=== PATIENT | female | born 1970 | race Caucasian/White ===

== ENCOUNTER 2022-04-17 08:16 | Emergency (ER) | payer MEDICARE, MEDICAID, SELFPAY ==
--- NOTE | 2022-04-17 08:27 | ED.GENADULT ---
HPI - General Adult General Chief complaint: Upper Respiratory Infection Stated complaint: Ear Pain/Sore Throat Source: patient and RN notes reviewed History of Present Illness HPI narrative: 51-year-old female presents to urgent care with daughter at side. Patient states she has been having a runny nose, congestion, headaches, sore throat, bilateral ear pain since Thursday. Patient reports a slight cough. States she had the aches yesterday. Denies any vomiting, diarrhea chest pain, shortness of breath. Patient has been taking Tylenol at home and use peroxide in her ear with moderate relief. Some parts of this dictation were generated by voice recognition software and may contain typographical and/or grammatical inaccuracies. Related Data Home Medications Medication Instructions Recorded Confirmed amlodipine 5 mg tablet mg 04/17/22 buspirone 15 mg tablet mg 04/17/22 cariprazine 1.5 mg capsule mg 04/17/22 (Vraylar) divalproex 125 mg tablet,delayed mg PO 04/17/22 release famotidine 20 mg tablet mg 04/17/22 insulin glargine 100 unit/mL (3 unit subcut 04/17/22 mL) subcutaneous pen (Lantus Solostar U-100 Insulin) insulin lispro 100 unit/mL subcut 04/17/22 subcutaneous pen (Admelog SoloStar U-100 Insulin lispro) liraglutide 0.6 mg/0.1 mL (18 mg/3 mg subcut 04/17/22 mL) subcutaneous pen injector (Victoza 3-Padilla) metformin 500 mg tablet mg 04/17/22 metoprolol tartrate 100 mg tablet mg 04/17/22 venlafaxine 75 mg capsule,extended mg PO 04/17/22 release 24 hr Allergies Allergy/AdvReac Type Severity Reaction Status Date / Time atorvastatin [From Lipitor] AdvReac Other Verified 04/17/22 08:30 ketorolac [From Toradol] AdvReac Other Verified 04/17/22 08:29 Review of Systems Review of Systems: CONSTITUTIONAL: Reports aches yesterday. EYES: Denies visual changes, redness, or discharge. ENT: Reports otalgia, rhinorrhea, congestion, and sore throat CARDIOVASCULAR: Denies chest pain, palpitations, or edema. RESPIRATORY: Slight cough. Denies dyspnea. GASTROINTESTINAL: Denies abdominal pain, nausea, vomiting, or diarrhea. GENITOURINARY: Denies dysuria or hematuria. SKIN: Denies rash or itching. MUSCULOSKELETAL: Denies back pain, joint pain, or myalgia. NEUROLOGIC: Reports headaches. PMFSH Comments At the time of my signature, I reviewed and agree with the nursing past medical, surgical, social, and family history. There is no relevant family history pertinent to the patient complaint. Exam Narrative: GENERAL: This is a well-nourished, well-developed patient, in no apparent distress. HEAD: normocephalic, atraumatic. EYES: PERRL. Sclera clear/white. Vision is grossly intact. EARS: External ears normal, auditory canals clear and without drainage, TMs normal without perforation. Hearing grossly intact. NOSE: rhinorrhea THROAT: Posterior pharynx erythema. NECK: Anterior cervical lymphadenopathy. CARDIOVASCULAR: Regular rate and rhythm without murmurs, gallops, or rubs. RESPIRATORY: Clear to auscultation. Breath sounds equal bilaterally. No wheezes, rales, or rhonchi. GASTROINTESTINAL: Abdomen soft, non-tender, nondistended. Bowel sounds are active. No hepato-splenomegaly, or palpable masses. No guarding. SKIN: warm, intact with no suspicious lesions or rash, good texture and turgor. NEURO: awake, alert, and oriented to person, place and time. There were no obvious focal neurologic abnormalities. Course Course Level of Care: Express Care Visit Vital Signs Vital signs: Vital Signs Temperature 98.3 F 04/17/22 08:28 Pulse Rate 108 H 04/17/22 08:28 Respiratory Rate 20 04/17/22 08:28 Blood Pressure 164/108 H 04/17/22 08:28 Pulse Oximetry 100 04/17/22 08:28 Oxygen Delivery Room Air 04/17/22 08:28 Temperature 98.3 F 04/17/22 08:28 Pulse Rate 108 H 04/17/22 08:28 Respiratory Rate 20 04/17/22 08:28 Blood Pressure 164/108 H 04/17/22 08:28 Pulse Oximetry 100 02/0
[2022-04-17 08:28] VITALS: BP 164/108; PULSE 108; RESP 20; TEMP 36.8; O2SAT 100
== END 2022-04-17 09:15 | disposition home or self-care (01) ==
PROVIDERS: Emergency Provider Nurse Practitioner Family; PCP Nurse Practitioner Family
DX: J06.9 Acute upper respiratory infection, unspecified (principal); E78.00 Pure hypercholesterolemia, unspecified; I10 Essential (primary) hypertension; E11.9 Type 2 diabetes mellitus without complications
CPT/HCPCS: 87081; 87880; 99203; G0463

== ENCOUNTER 2023-09-09 16:59 | Emergency (ER) | payer MEDICARE, MEDICAID, SELFPAY ==
[2023-09-09 17:06] VITALS: BP 143/86; PULSE 122; RESP 20; TEMP 36.3; O2SAT 100
--- NOTE | 2023-09-09 17:57 | ED.SKABFB ---
HPI - Skin/Abscess/Foreign Bdy General Chief complaint: Skin/Abscess/Foreign Body Stated complaint: Rash/Left Arm Time Seen by Provider: 09/09/23 17:57 Source: patient, RN notes reviewed and old records reviewed Mode of arrival: ambulatory Limitations: no limitations History of Present Illness HPI narrative: 53-year-old female to Express Care for complaint painful rash to left arm for 6 days. Patient has attempted to treat at home with triamcinolone and Benadryl cream without relief. Patient tachycardic and hypertensive in triage. Patient denies exposure to potential environmental irritants, allergies, pertinent medical history, fever, recent illness. Patient in no acute distress. Related Data Home Medications Medication Instructions Recorded Confirmed amlodipine 5 mg tablet mg 04/17/22 buspirone 15 mg tablet mg 04/17/22 cariprazine 1.5 mg capsule mg 04/17/22 (Vraylar) divalproex 125 mg tablet,delayed mg PO 04/17/22 release famotidine 20 mg tablet mg 04/17/22 insulin glargine 100 unit/mL (3 unit subcut 04/17/22 mL) subcutaneous pen (Lantus Solostar U-100 Insulin) insulin lispro 100 unit/mL subcut 04/17/22 subcutaneous pen (Admelog SoloStar U-100 Insulin lispro) liraglutide 0.6 mg/0.1 mL (18 mg/3 mg subcut 04/17/22 mL) subcutaneous pen injector (Victoza 3-Padilla) metformin 500 mg tablet mg 04/17/22 metoprolol tartrate 100 mg tablet mg 04/17/22 venlafaxine 75 mg capsule,extended mg PO 04/17/22 release 24 hr Allergies Allergy/AdvReac Type Severity Reaction Status Date / Time atorvastatin [From Lipitor] AdvReac Other Verified 04/17/22 08:30 ketorolac [From Toradol] AdvReac Other Verified 04/17/22 08:29 Review of Systems Review of Systems: All systems reviewed & are unremarkable except as noted in HPI and below Constitutional: Constitutional: Reports no additional constitutional complaints Eyes: Eyes: Reports no additional eye complaints ENT: Reports system reviewed and no additional complaints, except as documented Cardiovascular: Cardiovascular: Reports no additional cardiovascular complaints, Denies chest pain and Denies dyspnea Respiratory: Respiratory: Reports no additional respiratory complaints, Denies cough and Denies dyspnea Musculoskeletal: Musculoskeletal: Reports no additional musculoskeletal complaints Integumentary/Breasts: Skin/Breast: Reports rash ( left arm) and Reports skin pain Neurologic: Reports system reviewed and no additional complaints, except as documented Psychiatric: Psychiatric: Reports no additional psychiatric complaints PMFSH Comments At the time of my signature, I reviewed and agree with the nursing past medical, surgical, social, and family history. There is no relevant family history pertinent to the patient complaint. Exam Const: General: cooperative, healthy appearing, comfortable, no acute distress, alert and well nourished Nutritional Appearance: well nourished Orientation/consciousness: patient oriented x3 Limitations: no limitations HENMT: Head: normal to inspection Ears: external ears normal Face/Nose/Sinus: Normal external nose present, Normal nares present, normal facial exam, No erythema and No edema Face and sinus: normal facial exam, no erythema and no edema Mouth: Yes Normal oral and palatal mucosa present Eyes: General: appearance normal, both eyes and all related structures Neck: Neck: normal visual inspection, full ROM and no meningeal signs Lymphatic: no lymphadenopathy noted and no lymphedema noted Chest: Chest palpation & inspection: normal inspection of the chest Resp: Effort & Inspection: normal respiratory effort and able to speak in complete sentences Cardio: Jugular venous distension: no JVD Rate: regular rate Rhythm: regular rhythm Back/Spine/Pelvis: Cervical Spine: cervical ROM normal Skin: General skin exam: rashes ( erythematous clustered blistered rash diffusely across left upper extremit)
== END 2023-09-09 18:12 | disposition home or self-care (01) ==
PROVIDERS: Emergency Provider Nurse Practitioner Family; PCP Nurse Practitioner Family
DX: B02.9 Zoster without complications (principal)
CPT/HCPCS: 99213; G0463

== ENCOUNTER 2024-06-30 10:20 | Emergency (ER) | payer OTHER, SELFPAY ==
[2024-06-30 10:30] VITALS: BP 170/88; PULSE 72; RESP 16; TEMP 36.3; O2SAT 100
--- NOTE | 2024-06-30 10:32 | ED.GENADULT ---
HPI - General Adult General Chief complaint: Skin/Abscess/Foreign Body Stated complaint: Rash on Skin Time Seen by Provider: 06/30/24 10:35 Source: patient Mode of arrival: ambulatory Limitations: no limitations History of Present Illness HPI narrative: 53 y/o female presented for c/o itchy red rash to right abdomen and side. Onset 4 days following yard work. Denies pain to the rash. Has not taken anything or applied anything to the rash. Denies lip, tongue, or throat swelling, shortness of breath or wheezing. Denies changes to soap, detergent, lotion, or any other exposures. No one else in the house or any contacts with similar symptoms. Related Data Home Medications ?Medication ?Instructions ?Recorded ?Confirmed ?Last Taken ?Type buspirone 15 mg tablet mg 04/17/22 Unknown History cariprazine 1.5 mg capsule mg 04/17/22 Unknown History (Vraylar) metformin 500 mg tablet mg 04/17/22 Unknown History metoprolol tartrate 100 mg tablet mg 04/17/22 Unknown History benztropine 1 mg tablet mg 06/30/24 Unknown History divalproex 250 mg tablet,extended mg PO 06/30/24 Unknown History release 24 hr fast acting insulin 06/30/24 Unknown History hydroxyzine HCl 25 mg tablet mg 06/30/24 Unknown History lidocaine 5 % topical patch patch 06/30/24 Unknown History lisinopril 40 mg tablet mg 06/30/24 Unknown History nitroglycerin 0.4 mg sublingual mg 06/30/24 Unknown History tablet trazodone 100 mg tablet mg 06/30/24 Unknown History venlafaxine 150 mg mg PO 06/30/24 Unknown History capsule,extended release 24 hr Allergies Allergy/AdvReac Type Severity Reaction Status Date / Time atorvastatin (From Lipitor) AdvReac Other Verified 06/30/24 10:33 ketorolac (From Toradol) AdvReac Other Verified 06/30/24 10:33 Review of Systems Review of Systems: [facility] Comments At time of signature, I have reviewed and agree with nursing past medical, surgical, social and family history unless otherwise noted. Please see nursing chart for further information. There is no relevant family history pertinent to the presenting complaint Exam Narrative: GENERAL: Well-appearing HEAD: Normocephalic, atraumatic. EYES: conjunctivae clear, and EOMI. ENT: Mucous membranes moist. Oropharynx without edema, erythema or lesions. NECK: Supple. No lymphadenopathy CHEST: Clear to auscultation. HEART: Regular rate and rhythm. SKIN: Warm, dry. Right lower and lateral abdomen with erythematous dry patches irregular, round or linear, nontender, no drainage. c/w contact derm. NEURO: Alert and oriented x3. Course Course Emergency Course: Patient is aware of diagnosis, understands and agrees to treatment plan. Anticipatory guidance given. Patient agrees to follow-up as directed and is aware of reasons to seek care at the emergency department. Portions of this record may have been created with voice recognition software Level of Care: Express Care Visit Vital Signs Vital signs: Vital Signs Temperature 97.3 F L 06/30/24 10:30 Pulse Rate 72 06/30/24 10:30 Respiratory Rate 16 06/30/24 10:30 Blood Pressure 170/88 H 06/30/24 10:30 Pulse Oximetry 100 06/30/24 10:30 Oxygen Delivery Room Air 06/30/24 10:30 Temperature 97.3 F L 06/30/24 10:30 Pulse Rate 72 06/30/24 10:30 Respiratory Rate 16 06/30/24 10:30 Blood Pressure 170/88 H 06/30/24 10:30 Pulse Oximetry 100 06/30/24 10:30 Oxygen Delivery Room Air 06/30/24 10:30 Reviewed Medical Decision Making MDM Narrative Medical decision making narrative: Discussed physical exam findings c/w contact dermatitis, reviewed RX. Pt is diabetic, low steroid. Advised supportive measures and signs/symptoms to go to the ER. Pt is appropriate for outpt treatment and f/u. Differential Diagnosis Differential Diagnosis: Viral exanthema, contact dermatitis, allergic dermatitis, eczema, urticaria, insect bites, impetigo, tinea, folliculitis Vital Signs Vital Signs: Vital Signs Temperature 97.3 F L 06/30/24 10:30 Pulse Rate 72 06/30/24 10:30 Respiratory Rate 16 06/30/24 10:30 Blood Pressure 170/88 H 06/30/24 10:30 Pulse Oximetry 100 06/30/24 10:30 Oxygen Delivery Room Air 06/30/24 10:30 Temperature 97.3 F L 06/30/24 10:30 Pulse Rate 72 06/30/24 10:30 Respiratory Rate 16 06/30/24 10:30 Blood Pressure 170/88 H 06/30/24 10:30 Pulse Oximetry 100 06/30/24 10:30 Oxygen Delivery Room Air 06/30/24 10:30 Discharge Plan Discharge Clinical Impression: Contact dermatitis Patient Disposition: Home Condition: Stable Instructions: Antibiotic Form, Poison Leann (ED) Additional Instructions: Your blood pressure reading was elevated (above 120/80) please follow-up with your primary care provider for further evaluation and management. If you develop worsening Blood Pressure symptoms, (headache, vision changes, dizziness, vomiting, chest pain, etc) go to the ER. Call 911. Take steroids and Pepcid as directed. Benadryl or Zyrtec according to package directions for itching as needed Cool compresses to the sites of itching, avoid hot water. Avoid scratching to reduce the risk of infection Follow up with your primary care provider as needed in 1 week Go to the ER for worsening symptoms or concerns (lip, tongue, throat swelling/itching, trouble breathing etc) Patient Language: Taiwanese Prescriptions: New famotidine [Pepcid] 40 mg tablet 40 mg PO DAILY Qty: 10 0RF prednisone 20 mg tablet 40 mg PO DAILY Qty: 5 0RF cetirizine [Zyrtec] 10 mg tablet 10 mg PO DAILY PRN (Reason: congestion) Qty: 10 0RF No Action venlafaxine 150 mg capsule,extended release 24hr PO trazodone 100 mg tablet lidocaine 5 % adhesive patch,medicated benztropine 1 mg tablet nitroglycerin 0.4 mg tablet, sublingual hydroxyzine HCl 25 mg tablet lisinopril 40 mg tablet divalproex 250 mg tablet extended release 24 hr PO fast acting insulin metformin 500 mg tablet metoprolol tartrate 100 mg tablet buspirone 15 mg tablet Vraylar 1.5 mg capsule fluticasone propionate [24 Hour Allergy Relief] 50 mcg/actuation spray,suspension 1 spray intranasal BID Qty: 16 0RF Rx Instructions: administer into each nostril Follow-up/Referrals: Zoe,ADILENE Velásquez [Primary Care Provider] - Time of Disposition: 10:54
--- OUTSIDE RECORDS SUMMARY | 2024-06-30 11:12 | XMS_ITS | Data Portability ---
[facility] Organization [facility] Address [address] [place] [address] Care Team Providers Care Associate Art Director Name Role Phone [facility] OTHER CHRISTOPHER CESAR Psychiatrist OLESYA LOYOLA OTHER CHRISTEN BARONE Primary Care Provider [phone] Assessment Encounter Date Assessment Date Assessment LastModified by Organization Details LastModified Time 05/11/2024 05/11/2024 Ms. Rocha presents in office today for follow up appointment. Not available 05/15/2024 17:11:57 05/18/2024 05/18/2024 Ms. Rocha presents for a follow-up appointment and reports a mild, odorous rash located between the abdominal fold and groin area. The rash has been present for two weeks and is associated with mild itching and discomfort. The patient has a history of similar rashes in the past. Notably, the patient did not keep their appointment with the technical rep last week. Recent A1c is 12.5, indicating poorly controlled diabetes, which may contribute to recurrent intertrigo. Not available 05/18/2024 14:23:45 06/10/2024 06/10/2024 Ms. Rocha presents for follow-up after ER visit on 06/03 for chest pain. In the ER, diagnosed with nonspecific chest pain, sinus tachycardia, and abnormal ECG with nonspecific ST changes. Compared to prior ECG from 04/14/24. Not available 06/27/2024 09:22:56 Plan of Treatment Reminders Order Date Submit Date Provider Last Modified By Organization Details Last Modified Time Details Appointments NEW PATIENT 15 2024 09:30A M Diego Tavarez MD Not available Not available Not available ANY 15 2024 10:30A M CHRISTEN BARONE NP Not available Not available Not available ANY 15 2024 10:30A M Diego Tavarez MD Not available Not available Not available Lab HbA1c (hemoglob in A1c), blood 2024 025 [facility] In-Office Order, Internal Use Only DO Not Attach Compendium DO Not Attach Compendium, Do Not Delete/merge, [id number] 05/11/2024 12:08:42 culture, urine 2024 025 [facility] [address] [facility] [address], [address], 04/13/2024 06:18:19 urinalysi s, dipstick 2024 025 [facility] In-Office Order, Internal Use Only DO Not Attach Compendium DO Not Attach Compendium, Do Not Delete/merge, [id number] 04/11/2024 13:43:03 Referral cardiolog ist referral 2024 025 [facility] Tavarez MD, [address], [place], [address], 06/30/2024 05:08:39 Procedures None recorded. Surgeries None recorded. Imaging None recorded. Medication Orders nystatin 100,000 unit/gram topical cream 2024 025 [facility] [place], [address], 05/18/2024 14:14:19 lidocaine 5 % topical patch 2024 025 [facility], [address] [place], [address], 05/18/2024 11:08:44 Macrobid 100 mg capsule 2024 025 [facility], [address] [place], [address], 05/11/2024 12:55:01 Patient TargetsNo targets recorded. Patient Instructions Encounter Date Encounter Id Patient Instructions Last Modified By Organization Details Last Modified Time 04/11/2024 [id number] Urinary Tract Infection (UTI) in Women: Care Instructions [email or web address] Not available 04/11/2024 12:59:38 Plan of care has been discussed with patient including expected therapeutic benefits and potential side effects of prescribed medication and treatments. Patient verbalizes understanding and is in agreement with the plan of care. Patient was instructed to keep all scheduled appointments and contact the clinic for any additional problems. [email or web address] Not available 05/15/2024 12:08:22 05/11/2024 [id number] - Always present to ER or Urgent Care with any progression of/alarming symptoms, significant changes in symptoms or any concerning or urgent matters Not available 05/15/2024 17:08:46 05/18/2024 [id number] - Always present to ER or Urgent Care with any progression of/alarming symptoms, significant changes in symptoms or any concerning or urgent matters Not available 05/18/2024 11:08:42 06/10/2024 [id number] A healthy lifestyle: care instructions Not available 06/10/2024 11:11:17 - Always present to ER or Urgent Care with any progression of/alarming symptoms, significant changes in symptoms or any concerning or urgent matters Not available 06/21/2024 10:54:05 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) [address] [facility], [place], [address], 04/13/2024 06:18:19 04/11/1904/13/2024 URINE CULTU JAKUB BRAVO result 1 COMMEN T abnormal Beta hemol ytic Strep tococ cus, group B 10,00 0-25, 000 colon y formi ng units per mL Penic illin and ampic illin are drugs of choic e for treat ment of beta- hemol ytic strep tococ tanna infec tions . Susce ptibi lity testi ng of penic illin s and other beta- lacta m agent s appro lewis by the FDA for treat ment of beta- hemol ytic strep tococ tanna infec tions need not be perfo rmed routi tai becau se nonsu scept ible isola keith are extre yunior rare in any beta- hemol ytic strep tococ cus and have not been repor otoniel for Strep tococ cus pyoge shahla (grou p A). (CLSI ) Not Available [facility] ([facility]) [address] [facility], [place], [address], 04/13/2024 06:18:19 04/11/1904/13/2024 URINE CULTU RE, ROUTI NE result 2 COMMEN T Mixed uroge nital leroy 10,00 0-25, 000 colon y formi ng units per mL Not Available [facility] ([facility]) [address], [place], [address], 04/13/2024 06:18:19 04/11/1904/11/2024 urina lysis , dipst ick Leukocytes Negati ve Not Available In-Office Order Internal Use Only DO Not Attach Compendium DO Not Attach Compendium, Do Not Delete/merge, 04/11/2024 12:48:14 04/11/1904/11/2024 urina lysis , dipst ick Nitrite negati ve Not Available In-Office Order Internal Use Only DO Not Attach Compendium DO Not Attach Compendium, Do Not Delete/merge, 04/11/2024 12:48:14 04/11/1904/11/2024 urina lysis , dipst ick Urobilinogen .2 Not Available In-Of fice Order Internal Use Only DO Not Attach Compendium DO Not Attach Compendium, Do Not Delete/merge, 04/11/2024 12:48:14 04/11/19 25 04/11/2024 urina lysis , dipst ick Protein Negati ve Not Available In-Office Order Internal Use Only DO Not Attach Compendium DO Not Attach Compendium, Do Not Delete/merge, 04/11/2024 12:48:14 04/11/19 25 04/11/2024 urina lysis , dipst ick pH 5.5 Not Available In-Office Order Internal Use Only DO Not Attach Compendium DO Not Attach Compendium, Do Not Delete/merge, 04/11/2024 12:48:14 04/11/19 25 04/11/2024 urina lysis , dipst ick Blood Negati ve Not Available In-Office Order Internal Use Only DO Not Attach Compendium DO Not Attach Compendium, Do Not Delete/merge, 04/11/2024 12:48:14 04/11/1904/11/2024 urina lysis , dipst ick Specific Shelbiana 1.025 Not Available In-Off ice Order Internal Use Only DO Not Attach Compendium DO Not Attach Compendium, Do Not Delete/merge, 04/11/2024 12:48:14 04/11/1904/11/2024 urina lysis , dipst ick Ketone Negati ve Not Available In-Office Order Internal Use Only DO Not Attach Compendium DO Not Attach Compendium, Do Not Delete/merge, 04/11/2024 12:48:14 04/11/1904/11/2024 urina lysis , dipst ick Bilirubin Negati ve Not Available In-Office Order Internal Use Only DO Not Attach Compendium DO Not Attach Compendium, Do Not Delete/merge, 04/11/2024 12:48:14 04/11/1904/11/2024 urina lysis , dipst ick Glucose 500 Not Available In-Office Order Internal Use Only DO Not Attach Compendium DO Not Attach Compendium, Do Not Delete/merge, 04/11/2024 12:48:14 04/11/19 25 04/11/2024 urina lysis , dipst ick Appearance Slight ly Cloudy Not Available In-Office Order Internal Use Only DO Not Attach Compendium DO Not Attach Compendium, Do Not Delete/merge, [id number] 04/11/2024 12:48:14 04/11/1904/11/2024 urina lysis , dipst ick Color Yellow Not Available In-Office Order Internal Use Only DO Not Attach Compendium DO Not Attach Compendium, Do Not Delete/merge, [id number] 04/11/2024 12:48:14 04/14/19 25 04/14/2024 CBC W Auto Diffe renti al panel - Blood leukocytes [#/volume] in blood by automated count 7.34 text: 4.00 - 12.00 10(3)/ mcL WBC 7.34 4.00 - 12.00 10(3) /mcL 04/14 1:08 AM RADIATION ONCOLOGIST [facility] SupplyHogT H [facility] LAB Not Available Not Available 04/28/2024 08:49:10 04/14/1904/14/2024 CBC W Auto Diffe renti al panel - Blood erythrocytes [#/volume] in blood by automated count 5.05 text: 3.80 - 5.30 10(6)/ mcL RBC 5.05 3.80 - 5.30 10(6) /mcL 04/14 1:08 AM RADIATION ONCOLOGIST OS [employer] [facility] SupplyHogT H CENTE R LAB Not Available Not Available 04/28/2024 08:49:10 04/14/1904/14/2024 CBC W Auto Diffe renti al panel - Blood hemoglobin [mass/volume ] in blood 14.2 g/dL low: 12g/dL high: 15.8g/ dL HEMOG LOBIN (HGB) 14.2 12.0 - 15.8 g/dL 04/14 1:08 AM RADIATION ONCOLOGIST [facility] [employer] [facility] SupplyHogT H CENTE R LAB Not Available Not Available 04/28/2024 08:49:10 04/14/19 25 04/14/2024 CBC W Auto Diffe renti al panel - Blood hematocrit [volume fraction] of blood by automated count 43.7 % low: 36%hig h: 47% HEMAT OCRIT (HCT) 43.7 36.0 - 47.0 % 04/14 1:08 AM [facility] DMITRIT H CENTE R LAB Not Available Not Available 04/28/2024 08:49:10 04/14/19 25 04/14/2024 CBC W Auto Diffe renti al panel - Blood MCV [entitic volume] by automated count 86.5 fL low: 82fLhi gh: 96fL MCV 86.5 82.0 - 96.0 fL 04/14 1:08 AM [facility] DMITRIT H [facility] LAB Not Available Not Available 04/28/2024 08:49:10 04/14/19 25 04/14/2024 CBC W Auto Diffe renti al panel - Blood MCH [entitic mass] by automated count 28.1 pg low: 26pghi gh: 34pg MCH 28.1 26.0 - 34.0 pg 04/14 1:08 AM [facility] RIZVIT H [facility] Not Available Not Available 04/28/2024 08:49:10 04/14/19 25 04/14/2024 CBC W Auto Diffe renti al panel - Blood MCHC [mass/volume ] by automated count 32.5 g/dL low: 31g/dL high: 36g/dL MCHC 32.5 31.0 - 36.0 g/dL 04/14 1:08 AM [facility] DMITRIT H [facility] LAB Not Available Not Available 04/28/2024 08:49:10 04/14/19 25 04/14/2024 CBC W Auto Diffe renti al panel - Blood platelets [#/volume] in blood 264 text: 140 - 440 10(3)/ mcL PLATE LET COUNT 264 140 - 440 10(3) /mcL 04/14 1:08 AM [facility] DMITRIT H C[facility] LAB Not Available Not Available 04/28/2024 08:49:10 04/14/19 25 04/14/2024 CBC W Auto Diffe renti al panel - Blood erythrocyte distribution width [ratio] by automated count 12.8 % low: 11.8%h igh: 15.5% RDW 12.8 11.8 - 15.5 % 04/14 1:08 AM [facility] HEALT H CENTE R LAB Not Available Not Available 04/28/2024 08:49:10 04/14/19 25 04/14/2024 CBC W Auto Diffe renti al panel - Blood platelet mean volume [entitic volume] in blood by automated count 10.3 fL low: 9.7fLh igh: 12.4fL MPV 10.3 9.7 - 12.4 fL 04/14 1:08 AM [facility] Not Available Not Available 04/28/2024 08:49:10 04/14/19 25 04/14/2024 CBC W Auto Diffe renti al panel - Blood neutrophils/ 100 leukocytes in blood by automated count 49.9 % low: 47%hig h: 73% NEUTR OPHIL S 49.9 47.0 - 73.0 % 04/14 1:08 AM [facility] Not Available Not Available 04/28/2024 08:49:10 04/14/19 25 04/14/2024 CBC W Auto Diffe renti al panel - Blood lymphocytes/ 100 leukocytes in blood by automated count 41.1 % low: 18%hig h: 42% LYMPH OCYTE S 41.1 18.0 - 42.0 % 04/14 1:08 AM [facility] SupplyHogT H CENTE [facility] LAB Not Available Not Available 04/28/2024 08:49:10 04/14/19 25 04/14/2024 CBC W Auto Diffe renti al panel - Blood monocytes/10 0 leukocytes in blood by automated count 7.8 % low: 4%high : 12% MONOC YTES 7.8 4.0 - 12.0 % 04/14 1:08 AM [facility] Not Available Not Available 04/28/2024 08:49:10 04/14/19 25 04/14/2024 CBC W Auto Diffe renti al panel - Blood eosinophils/ 100 leukocytes in blood by automated count 1.1 % low: 0%high : 5% EOSIN OPHIL S 1.1 0.0 - 5.0 % 04/14 1:08 AM [facility] CENT[facility] R LAB Not Available Not Available 04/28/2024 08:49:10 04/14/19 25 04/14/2024 CBC W Auto Diffe renti al panel - Blood basophils/10 0 leukocytes in blood by automated count 0.1 % low: 0%high : 1% BASOP HILS 0.1 0.0 - 1.0 % 04/14 1:08 AM [facility] CENT[facility] R LAB Not Available Not Available 04/28/2024 08:49:10 04/14/19 25 04/14/2024 CBC W Auto Diffe renti al panel - Blood neutrophils [#/volume] in blood by automated count 3.66 text: 1.60 - 7.70 10(3)/ mcL ABSOL [place] NEUTR OPHIL S 3.66 1.60 - 7.70 10(3) /mcL 04/14 1:08 AM [facility] [employer] R LAB Not Available Not Available 04/28/2024 08:49:10 04/14/19 25 04/14/2024 CBC W Auto Diffe renti al panel - Blood lymphocytes [#/volume] in blood by automated count 3.02 text: 1.30 - 3.20 10(3)/ mcL ABSOL [place] LYMPH OCYTE S 3.02 1.30 - 3.20 10(3) /mcL 04/14 1:08 AM [facility] [employer] R LAB Not Available Not Available 04/28/2024 08:49:10 04/14/19 25 04/14/2024 CBC W Auto Diffe renti al panel - Blood monocytes [#/volume] in blood by automated count 0.57 text: 0.20 - 1.00 10(3)/ mcL ABSOL [place] MONOC YTES 0.57 0.20 - 1.00 10(3) /mcL 04/14 1:08 AM [facility] CENT[facility] R LAB Not Available Not Available 04/28/2024 08:49:10 04/14/19 25 04/14/2024 CBC W Auto Diffe renti al panel - Blood eosinophils [#/volume] in blood by automated count 0.08 text: 0.00 - 0.40 10(3)/ mcL ABSOL [place] EOSIN OPHIL 0.08 0.00 - 0.40 10(3) /mcL 04/14 1:08 AM [facility] [email or web address] LAB Not Available Not Available 04/28/2024 08:49:10 04/14/19 25 04/14/2024 CBC W Auto Diffe renti al panel - Blood basophils [#/volume] in blood by automated count 0.01 text: 0.00 - 0.10 10(3)/ mcL ABSOL [place] BASOP HILS 0.01 0.00 - 0.10 10(3) /mcL 04/14 1:08 AM [facility] [employer] LAB Not Available Not Available 04/28/2024 08:49:10 04/14/19 25 04/14/2024 CBC W Auto Diffe renti al panel - Blood nucleated erythrocytes /100 leukocytes [ratio] in blood 0 NRBC PER 100 WBC 0 04/14 1:08 AM [facility] Recommind LAB Not Available Not Available 04/28/2024 08:49:10 04/14/1904/14/2024 Thyro xine (T4) free [Mass /volu me] in Serum or Plasm a thyroxine (T4) free [mass/volume ] in serum or plasma 1 NG/dL low: 0.7NG/ dLhigh : 1.9NG/ dL T4 FREE 1.0 0.7 - 1.9 ng/dL 04/14 3:34 AM [facility] Recommind LAB Not Available Not Available 04/28/2024 08:49:10 04/14/19 25 04/14/2024 Thyro xine (T4) free [Mass /volu me] in Serum or Plasm a interpretati on and review of laboratory results Normal Not Available Not Available 04/16 08:49:10 04/14/19 25 04/14/2024 Lipas e [Enzy matic activ ity/v olume ] in Serum or Plasm a lipase [enzymatic activity/vol ume] in serum or plasma 52 U/L low: 8U/Lhi gh: 78U/L LIPAS E 52 8 - 78 U/L 04/14 1:29 AM RADIATION ONCOLOGIST [facility] [employer] [facility] R LAB Not Available Not Available 04/28/2024 08:49:10 04/14/19 25 04/14/2024 Lipas e [Enzy matic activ ity/v olume ] in Serum or Plasm a interpretati on and review of laboratory results Normal Not Available Not Available 04/16 08:49:10 04/14/19 25 04/14/2024 Compr ehens marisol metab olic 1999 panel - Serum or Plasm a sodium [moles/volum e] in serum or plasma 139 mmol/ L low: 136mmo l/Lhig h: 145mmo l/L SODIU M 139 136 - 145 mmol/ L 04/14 1:29 AM RAD[facility]ATION ONCOLOGIST [facility] SupplyHogT [employer] R LAB Not Available Not Available 04/28/2024 08:49:09 04/14/1904/14/2024 Compr ehens marisol metab olic 1999 panel - Serum or Plasm a potassium [moles/volum e] in serum or plasma 4 mmol/ L low: 3.5mmo l/Lhig h: 5.1mmo l/L POTAS SIUM 4.0 3.5 - 5.1 mmol/ L 04/14 1:29 AM RADIATION ONCOLOGIST [facility] SupplyHogT H [employer] R LAB Not Available Not Available 04/28/2024 08:49:09 04/14/1904/14/2024 Compr ehens marisol metab olic 1999 panel - Serum or Plasm a chloride [moles/volum e] in serum or plasma 101 mmol/ L low: 98mmol /Lhigh : 107mmo l/L CHLOR OMERO 101 98 - 107 mmol/ L 04/14 1:29 AM RADIATION ONCOLOGIST [facility] [employer] R LAB Not Available Not Available 04/28/2024 08:49:09 04/14/19 25 04/14/2024 Compr ehens marisol metab olic 1999 panel - Serum or Plasm a carbon dioxide, total [moles/volum e] in serum or plasma 26 mmol/ L low: 22mmol /Lhigh : 30mmol /L CO2, VENOU S 26 22 - 30 mmol/ L 04/14 1:29 AM RADIATION ONCOLOGIST [facility] Not Available Not Available 04/28/2024 08:49:09 04/14/19 25 04/14/2024 Compr ehens marisol metab olic 1999 panel - Serum or Plasm a anion gap in serum or plasma 16 mmol/ L high: 18mmol /L ANION GAP 16.0 <18.0 mmol/ L 04/14 1:29 AM RADIATION ONCOLOGIST [facility] Not Available Not Available 04/28/2024 08:49:09 04/14/19 25 04/14/2024 Compr ehens marisol metab olic 1999 panel - Serum or Plasm a glucose [mass/volume ] in serum or plasma 376 mg/dL low: 70mg/d Lhigh: 99mg/d L high GLUCO SE 376 (H) 70 - 99 mg/dL 04/14 1:29 AM RADIATION ONCOLOGIST [facility] Not Available Not Available 04/28/2024 08:49:09 04/14/19 25 04/14/2024 Compr ehens marisol metab olic 1999 panel - Serum or Plasm a urea nitrogen [mass/volume ] in serum or plasma 13 mg/dL low: 10mg/d Lhigh: 20mg/d L BUN 13 10 - 20 mg/dL 04/14 1:29 AM RADIATION ONCOLOGIST [facility] Not Available Not Available 04/28/2024 08:49:09 04/14/19 25 04/14/2024 Compr ehens marisol metab olic 1999 panel - Serum or Plasm a creatinine [mass/volume ] in serum or plasma 1.15 mg/dL low: 0.6mg/ dLhigh : 1mg/dL high CREAT ININE , BLOOD 1.15 (H) 0.60 - 1.00 mg/dL 04/14 1:29 AM RADIATION ONCOLOGIST [facility] Not Available Not Available 04/28/2024 08:49:09 04/14/19 25 04/14/2024 Compr ehens marisol metab olic 1999 panel - Serum or Plasm a urea nitrogen/cre atinine [mass ratio] in serum or plasma 11 text: 12 - 20 ratio low BUN/C REATI NINE RATIO 11 (L) 12 - 20 ratio 04/14 1:29 AM RADIATION ONCOLOGIST [facility] [employer] R LAB Not Available Not Available 04/28/2024 08:49:09 04/14/19 25 04/14/2024 Compr Nagisa,inc[employer] marisol metab olic 1999 panel - Serum or Plasm a protein [mass/volume ] in serum or plasma 8.3 g/dL low: 6g/dLh igh: 8g/dL high TOTAL PROTE IN 8.3 (H) 6.0 - 8.0 g/dL 04/14 1:29 AM RADIATION ONCOLOGIST [facility] [email or web address] R LAB Not Available Not Available 04/28/2024 08:49:09 04/14/19 25 04/14/2024 Compr Nagisa,inc[employer]ens marisol metab olic 1999 panel - Serum or Plasm a albumin [mass/volume ] in serum or plasma 4 g/dL low: 3.5g/d Lhigh: 5g/dL ALBUM IN 4.0 3.5 - 5.0 g/dL 04/14 1:29 AM RADIATION ONCOLOGIST [facility] [email or web address] R LAB Not Available Not Available 04/28/2024 08:49:09 04/14/19 25 04/14/2024 Compr [employer] marisol [employer] olic 1999 panel - Serum or Plasm a albumin/glob ulin [mass ratio] in serum or plasma 0.9 low: 1high: 2.2 low A/G RATIO 0.9 (L) 1.0 - 2.2 04/14 1:29 AM RADIATION ONCOLOGIST [facility] [employer] R LAB Not Available Not Available 04/28/2024 08:49:09 04/14/19 25 04/14/2024 Compr Nagisa,inc[employer]ens marisol metab olic 1999 panel - Serum or Plasm a calcium [mass/volume ] in serum or plasma 9.9 mg/dL low: 8.7mg/ dLhigh : 10.5mg /dL CALCI UM 9.9 8.7 - 10.5 mg/dL 04/14 1:29 AM [email or web address] Not Available Not Available 04/28/2024 08:49:09 04/14/19 25 04/14/2024 Compr ehens marisol metab olic 1999 panel - Serum or Plasm a bilirubin.to kimmie [mass/volume ] in serum or plasma 0.2 mg/dL low: 0.2mg/ dLhigh : 1.2mg/ dL T BILI 0.2 0.2 - 1.2 mg/dL 04/14 1:29 AM [facility] [[email or web address] Not Available Not Available 04/28/2024 08:49:09 04/14/19 25 04/14/2024 Compr Nagisa,inc[employer]ens marisol metab olic 2000 panel - Serum or Plasm a aspartate aminotransfe rase [enzymatic activity/vol ume] in serum or plasma 43 U/L low: 6U/Lhi gh: 42U/L high SGOT (AST) 43 (H) 6 - 42 U/L 04/14 1:29 AM [email or web address] Not Available Not Available 04/28/2024 08:49:09 04/14/19 25 04/14/2024 Compr ehens amrisol metab olic 2000 panel - Serum or Plasm a alanine aminotransfe rase [enzymatic activity/vol ume] in serum or plasma 47 U/L low: 6U/Lhi gh: 55U/L SGPT (ALT) 47 6 - 55 U/L 04/14 1:29 AM [facility] [[email or web address] Not Available Not Available 04/28/2024 08:49:09 04/14/19 25 04/14/2024 Compr ehens marisol metab olic 2000 panel - Serum or Plasm a alkaline phosphatase [enzymatic activity/vol ume] in serum or plasma 96 U/L low: 40U/Lh igh: 150U/L ALKAL INE PHOSP HATAS E 96 40 - 150 U/L 04/14 1:29 AM [facility] [[email or web address] Not Available Not Available 04/28/2024 08:49:09 04/14/19 25 04/14/2024 Compr ehens marisol metab olic 2000 panel - Serum or Plasm a glomerular filtration rate/1.73 sq M.predicted among non-blacks [volume rate/area] in serum, plasma or blood by creatinine-b ased formula (MDRD) 57 low: 60 low GFR, ESTIM ATED 57 (L) >=60 04/14 1:29 AM RADIATION ONCOLOGIST [employer] [facility] LAB Not Available Not Available 04/28/2024 08:49:09 04/14/19 25 04/14/2024 Compr ehens marisol metab olic 2000 panel - Serum or Plasm a glomerular filtration rate/1.73 sq M.predicted among blacks [volume rate/area] in serum, plasma or blood by creatinine-b ased formula (MDRD) 60 low: 60 GFR, EST. AFRIC AN 60 >=60 04/14 1:29 AM RADIATION ONCOLOGIST [facility] [facility] Not Available Not Available 04/28/2024 08:49:09 04/14/19 25 04/14/2024 Compr ehens marisol metab olic 2000 panel - Serum or Plasm a glomerular filtration rate/1.73 sq M.predicted among non-blacks [volume rate/area] in serum, plasma or blood by creatinine-b ased formula (MDRD) 49 low: 60 low GFR, EST. NONAF RICAN 49 (L) >=60 04/14 1:29 AM RADIATION ONCOLOGIST [facility] [facility] Not Available Not Available 04/28/2024 08:49:09 04/14/19 25 04/14/2024 Compr ehens marisol metab olic 2000 panel - Serum or Plasm a interpretati on and review of laboratory results Abnorm al Not Available Not Available 08:49:09 05/11/19 25 05/11/2024 HbA1c (hemo globi n A1c), blood HbA1c 12.5 Not Available In-Office Order Internal Use Only DO Not Attach Compendium DO Not Attach Compendium, Do Not Delete/merge, [id number] 05/11/2024 11:49:22 05/26/19 25 05/25/2024 CBC W Auto Diffe el al panel - Blood leukocytes [#/volume] in blood by automated count 7.43 text: 4.00 - 12.00 10(3)/ mcL WBC 7.43 4.00 - 12.00 10(3) /mcL 05/25 9:38 PM CDT [facility] RIZVIT H [facility] R LAB Not Available Not Available 05/26/2024 08:53:37 05/26/19 25 05/25/2024 CBC W Auto Diffe renti al panel - Blood erythrocytes [#/volume] in blood by automated count 5.15 text: 3.80 - 5.30 10(6)/ mcL RBC 5.15 3.80 - 5.30 10(6) /mcL 05/25 9:38 PM CDT [facility] Not Available Not Available 05/26/2024 08:53:37 05/26/19 25 05/25/2024 CBC W Auto Diffe renti al panel - Blood hemoglobin [mass/volume ] in blood 14.4 g/dL low: 12g/dL high: 15.8g/ dL HEMOG LOBIN (HGB) 14.4 12.0 - 15.8 g/dL 05/25 9:38 PM CDT [facility] Not Available Not Available 05/26/2024 08:53:37 05/26/19 25 05/25/2024 CBC W Auto Diffe renti al panel - Blood hematocrit [volume fraction] of blood by automated count 43.5 % low: 36%hig h: 47% HEMAT OCRIT (HCT) 43.5 36.0 - 47.0 % 05/25 9:38 PM CDT [facility] Not Available Not Available 05/26/2024 08:53:37 05/26/19 25 05/25/2024 CBC W Auto Diffe renti al panel - Blood MCV [entitic volume] by automated count 84.5 fL low: 82fLhi gh: 96fL MCV 84.5 82.0 - 96.0 fL 05/25 9:38 PM [facility] Not Available Not Available 05/26/2024 08:53:37 05/26/19 25 05/25/2024 CBC W Auto Diffe renti al panel - Blood MCH [entitic mass] by automated count 28 pg low: 26pghi gh: 34pg MCH 28.0 26.0 - 34.0 pg 05/25 9:38 PM CDT [facility] Not Available Not Available 05/26/2024 08:53:37 05/26/19 25 05/25/2024 CBC W Auto Diffe renti al panel - Blood MCHC [mass/volume ] by automated count 33.1 g/dL low: 31g/dL high: 36g/dL MCHC 33.1 31.0 - 36.0 g/dL 05/25 9:38 PM CDT [facility] Not Available Not Available 05/26/2024 08:53:37 05/26/19 25 05/25/2024 CBC W Auto Diffe renti al panel - Blood platelets [#/volume] in blood 251 text: 140 - 440 10(3)/ mcL PLATE LET COUNT 251 140 - 440 10(3) /mcL 05/25 9:38 PM CDT [facility] Not Available Not Available 05/26/2024 08:53:37 05/26/19 25 05/25/2024 CBC W Auto Diffe renti al panel - Blood erythrocyte distribution width [ratio] by automated count 13.2 % low: 11.8%h igh: 15.5% RDW 13.2 11.8 - 15.5 % 05/25 9:38 PM CDT [facility] Not Available Not Available 05/26/2024 08:53:37 05/26/19 25 05/25/2024 CBC W Auto Diffe renti al panel - Blood platelet mean volume [entitic volume] in blood by automated count 10.5 fL low: 9.7fLh igh: 12.4fL MPV 10.5 9.7 - 12.4 fL 05/25 9:38 PM [facility] Not Available Not Available 05/26/2024 08:53:37 05/26/19 25 05/25/2024 CBC W Auto Diffe renti al panel - Blood neutrophils/ 100 leukocytes in blood by automated count 55.5 % low: 47%hig h: 73% NEUTR OPHIL S 55.5 47.0 - 73.0 % 05/25 9:38 PM CDT [facility] Not Available Not Available 05/26/2024 08:53:37 05/26/19 25 05/25/2024 CBC W Auto Diffe renti al panel - Blood lymphocytes/ 100 leukocytes in blood by automated count 35.5 % low: 18%hig h: 42% LYMPH OCYTE S 35.5 18.0 - 42.0 % 05/25 9:38 PM CDT [facility] Not Available Not Available 05/26/2024 08:53:37 05/26/19 25 05/25/2024 CBC W Auto Diffe renti al panel - Blood monocytes/10 0 leukocytes in blood by automated count 7.9 % low: 4%high : 12% MONOC YTES 7.9 4.0 - 12.0 % 05/25 9:38 PM CDT [facility] Not Available Not Available 05/26/2024 08:53:37 05/26/19 25 05/25/2024 CBC W Auto Diffe renti al panel - Blood eosinophils/ 100 leukocytes in blood by automated count 0.7 % low: 0%high : 5% EOSIN OPHIL S 0.7 0.0 - 5.0 % 05/25 9:38 PM CDT [facility] Not Available Not Available 05/26/2024 08:53:37 05/26/19 25 05/25/2024 CBC W Auto Diffe renti al panel - Blood basophils/10 0 leukocytes in blood by automated count 0.4 % low: 0%high : 1% BASOP HILS 0.4 0.0 - 1.0 % 05/25 9:38 PM CDT [facility] Not Available Not Available 05/26/2024 08:53:37 05/26/19 25 05/25/2024 CBC W Auto Diffe renti al panel - Blood neutrophils [#/volume] in blood by automated count 4.12 text: 1.60 - 7.70 10(3)/ mcL ABSOL HOLY CROSS NEUTR OPHIL S 4.12 1.60 - 7.70 10(3) /mcL 05/25 9:38 PM CDT [facility] Not Available 05/26/2024 08:53:37 05/26/19 25 05/25/2024 CBC W Auto Diffe renti al panel - Blood lymphocytes [#/volume] in blood by automated count 2.64 text: 1.30 - 3.20 10(3)/ mcL ABSOL HOL[place] CROSS LYMPH OCYTE S 2.64 1.30 - 3.20 10(3) /mcL 05/25 9:38 PM CD[facility] Not Available Not Available 05/26/2024 08:53:37 05/26/19 25 05/25/2024 CBC W Auto Diffe renti al panel - Blood monocytes [#/volume] in blood by automated count 0.59 text: 0.20 - 1.00 10(3)/ mcL ABSOL HOL[place] CROSS MONOC YTES 0.59 0.20 - 1.00 10(3) /mcL 05/25 9:38 PM CDT [facility] Not [facility] Not Available 05/26/2024 08:53:37 05/26/19 25 05/25/2024 CBC W Auto Diffe renti al panel - Blood eosinophils [#/volume] in blood by automated count 0.05 text: 0.00 - 0.40 10(3)/ mcL ABSOL HOL[place] CROSS EOSIN OPHIL 0.05 0.00 - 0.40 10(3) /mcL 05/25 9:38 PM CDT [facility] Not Available Not Available 05/26/2024 08:53:37 05/26/19 25 05/25/2024 CBC W Auto Diffe renti al panel - Blood basophils [#/volume] in blood by automated count 0.03 text: 0.00 - 0.10 10(3)/ mcL ABSOL HOLY CROSS BASOP HILS 0.03 0.00 - 0.10 10(3) /mcL 05/25 9:38 PM CDT [facility] Not Available Not Available 05/26/2024 08:53:37 05/26/19 25 05/25/2024 CBC W Auto Diffe renti al panel - Blood nucleated erythrocytes /100 leukocytes [ratio] in blood 0 NRBC PER 100 WBC 0 05/25 9:38 PM CDT [facility] Not Available Not Available 05/26/2024 08:53:37 05/26/1905/25/2024 Compr ehens marisol metab olic 1999 panel - Serum or Plasm a sodium [moles/volum e] in serum or plasma 143 mmol/ L low: 136mmo l/Lhig h: 145mmo l/L SODIU M 143 136 - 145 mmol/ L 05/25 9:55 PM CDT [facility] Not Available Not Available 05/26/2024 08:53:37 05/26/1905/25/2024 Compr ehens marisol metab olic 1999 panel - Serum or Plasm a potassium [moles/volum e] in serum or plasma 3.9 mmol/ L low: 3.5mmo l/Lhig h: 5.1mmo l/L POTAS SIUM 3.9 3.5 - 5.1 mmol/ L 05/25 9:55 PM CDT [facility] Not Available Not Available 05/26/2024 08:53:37 05/26/19 25 05/25/2024 Compr ehens marisol metab olic 2000 panel - Serum or Plasm a chloride [moles/volum e] in serum or plasma 107 mmol/ L low: 98mmol /Lhigh : 107mmo l/L CHLOR OMERO 107 98 - 107 mmol/ L 05/25 9:55 PM CDT [facility] Not Available Not Available 05/26/2024 08:53:37 05/26/19 25 05/25/2024 Compr ehens marisol metab olic 1999 panel - Serum or Plasm a carbon dioxide, total [moles/volum e] in serum or plasma 22 mmol/ L low: 22mmol /Lhigh : 30mmol /L CO2, VENOU S 22 22 - 30 mmol/ L 05/25 9:55 PM CDT [facility] Not Available Not Available 05/26/2024 08:53:37 05/26/19 25 05/25/2024 Compr ehens marisol metab olic 1999 panel - Serum or Plasm a anion gap in serum or plasma 17.9 mmol/ L high: 18mmol /L ANION GAP 17.9 <18.0 mmol/ L 05/25 9:55 PM [facility] Not Available Not Available 05/26/2024 08:53:37 05/26/19 25 05/25/2024 Compr ehens marisol metab olic 1999 panel - Serum or Plasm a glucose [mass/volume ] in serum or plasma 202 mg/dL low: 70mg/d Lhigh: 99mg/d L high GLUCO SE 202 (H) 70 - 99 mg/dL 05/25 9:55 PM CD[facility] Not Available Not Available 05/26/2024 08:53:37 05/26/19 25 05/25/2024 Compr ehens marisol metab olic 1999 panel - Serum or Plasm a urea nitrogen [mass/volume ] in serum or plasma 13 mg/dL low: 10mg/d Lhigh: 20mg/d L BUN 13 10 - 20 mg/dL 05/25 9:55 PM CDT [facility] Not Available Not Available 05/26/2024 08:53:37 05/26/19 25 05/25/2024 Compr ehens marisol metab olic 2000 panel - Serum or Plasm a creatinine [mass/volume ] in serum or plasma 1.04 mg/dL low: 0.6mg/ dLhigh : 1mg/dL high CREAT ININE , BLOOD 1.04 (H) 0.60 - 1.00 mg/dL 05/25 9:55 PM CDT [facility] Not Available Not Available 05/26/2024 08:53:37 05/26/19 25 05/25/2024 Compr ehens marisol metab olic 1999 panel - Serum or Plasm a urea nitrogen/cre atinine [mass ratio] in serum or plasma 12 text: 12 - 20 ratio BUN/C REATI NINE RATIO 12 12 - 20 ratio 05/25 9:55 PM CDT [facility] Not Available Not Available 05/26/2024 08:53:37 05/26/19 25 05/25/2024 Compr ehens marisol metab olic 1999 panel - Serum or Plasm a protein [mass/volume ] in serum or plasma 7.6 g/dL low: 6g/dLh igh: 8g/dL TOTAL PROTE IN 7.6 6.0 - 8.0 g/dL 05/25 9:55 PM CDT [facility] [employer] [facility] LAB Not Available Not Available 05/26/2024 08:53:37 05/26/19 25 05/25/2024 Compr ehens marisol metab olic 1999 panel - Serum or Plasm a albumin [mass/volume ] in serum or plasma 4 g/dL low: 3.5g/d Lhigh: 5g/dL ALBUM IN 4.0 3.5 - 5.0 g/dL 05/25 9:55 PM CDT [facility] Not Available Not Available 05/26/2024 08:53:37 05/26/19 25 05/25/2024 Compr ehens marisol metab olic 1999 panel - Serum or Plasm a albumin/glob ulin [mass ratio] in serum or plasma 1.1 low: 1high: 2.2 A/G RATIO 1.1 1.0 - 2.2 05/25 9:55 PM CDT [facility] Not Available Not Available 05/26/2024 08:53:37 05/26/19 25 05/25/2024 Compr ehens marisol metab olic 1999 panel - Serum or Plasm a calcium [mass/volume ] in serum or plasma 10.1 mg/dL low: 8.7mg/ dLhigh : 10.5mg /dL CALCI UM 10.1 8.7 - 10.5 mg/dL 05/25 9:55 PM CDT [facility] [employer] R LAB Not Available Not Available 05/26/2024 08:53:37 05/26/19 25 05/25/2024 Compr ehens marisol metab olic 1999 panel - Serum or Plasm a bilirubin.to kimmie [mass/volume ] in serum or plasma 0.3 mg/dL low: 0.2mg/ dLhigh : 1.2mg/ dL T BILI 0.3 0.2 - 1.2 mg/dL 05/25 9:55 PM CDT [facility] [employer] [facility] LAB Not Available Not Available 05/26/2024 08:53:37 05/26/19 25 05/25/2024 Compr ehens marisol metab olic 1999 panel - Serum or Plasm a aspartate aminotransfe rase [enzymatic activity/vol ume] in serum or plasma 40 U/L high: 43U/L SGOT (AST) 40 <43 U/L 05/25 9:55 PM CDT [facility] [employer] LAB Not Available Not Available 05/26/2024 08:53:37 05/26/19 25 05/25/2024 Compr ehens marisol metab olic 1999 panel - Serum or Plasm a alanine aminotransfe rase [enzymatic activity/vol ume] in serum or plasma 29 U/L high: 56U/L SGPT (ALT) 29 <56 U/L 05/25 9:55 PM CDT [facility] [employer] LAB Not Available Not Available 05/26/2024 08:53:37 05/26/19 25 05/25/2024 Compr ehens marislo metab olic 1999 panel - Serum or Plasm a alkaline phosphatase [enzymatic activity/vol ume] in serum or plasma 80 U/L low: 40U/Lh igh: 150U/L ALKAL INE PHOSP HATAS E 80 40 - 150 U/L 05/25 9:55 PM CDT [facility] [employer] LAB Not Available Not Available 05/26/2024 08:53:37 05/26/19 25 05/25/2024 Compr ehens marisol metab olic 2000 panel - Serum or Plasm a glomerular filtration rate/1.73 sq M.predicted among non-blacks [volume rate/area] in serum, plasma or blood by creatinine-b ased formula (MDRD) low: 60 GFR, ESTIM ATED >60 >=60 05/25 9:55 PM CDT [facility] [employer] [facility] Not Available Not Available 05/26/2024 08:53:37 05/26/19 25 05/25/2024 Compr ehens marisol metab olic 2000 panel - Serum or Plasm a glomerular filtration rate/1.73 sq M.predicted among blacks [volume rate/area] in serum, plasma or blood by creatinine-b ased formula (MDRD) low: 60 GFR, EST. AFRIC AN >60 >=60 05/25 9:55 PM CDT [facility] [employer] [facility] Not Available Not Available 05/26/2024 08:53:37 05/26/19 25 05/25/2024 Compr ehens marisol metab olic 2000 panel - Serum or Plasm a glomerular filtration rate/1.73 sq M.predicted among non-blacks [volume rate/area] in serum, plasma or blood by creatinine-b ased formula (MDRD) 55 low: 60 low GFR, EST. NONAF RICAN 55 (L) >=60 05/25 9:55 PM CDT [facility] [employer] [facility] Not Available Not Available 05/26/2024 08:53:37 05/26/19 25 05/25/2024 Compr ehens marisol metab olic 2000 panel - Serum or Plasm a interpretati on and review of laboratory results Abnorm al Not Available Not Available 08:53:37 06/04/19 25 06/03/2024 Fibri n D-dim er FEU [Mass /volu me] in Plate let poor plasm a fibrin D-dimer feu [mass/volume ] in platelet poor plasma text: <0.50 mcg/mL feu D DIMER <=0.2 7 <0.50 mcg/m L FEU 06/03 3:39 AM CDT [facility] [employer] [facility] Not Available Not Available 06/10/2024 03:07:56 06/04/1906/03/2024 Fibri n D-dim er FEU [Mass /volu me] in Plate let poor plasm a Unknown Analyte The FDA has approv ed this method to exclud e the diagno sis of DVT and/or PE at the cutoff value of <0.50 mcg/mL FEU. The FDA has appro lewis this metho d to exclu de the diagn osis of DVT and/o r PE at the cutof f value of <0.50 mcg/m L FEU. Not Available Not Available 06/10/2024 03:07:56 06/04/1906/03/2024 Fibri n D-dim er FEU [Mass /volu me] in Plate let poor plasm a interpretati on and review of laboratory results Normal Not Available Not Available 05/15 03:07:56 06/04/19 25 06/03/2024 Natri ureti c pepti de B [Mass /volu me] in Serum or Plasm a natriuretic peptide B [mass/volume ] in serum or plasma high: 100pg/ mL B TYPE NATRI URETI C PEPTI DE <15 <100 pg/mL 06/03 4:16 AM CDT [facility] [employer] [facility] LAB Not Available Not Available 06/10/2024 03:07:56 06/04/19 25 06/03/2024 Natri ureti c pepti de B [Mass /volu me] in Serum or Plasm a interpretati on and review of laboratory results Normal Not Available Not Available 05/15 03:07:56 06/04/1906/03/2024 Drugs of abuse panel - Urine by Scree n metho d amphetamine [presence] in urine by screen method NON DETECT ED text: non detect ed UR AMPHE TAMIN E NON DETEC OTONIEL NON DETEC OTONIEL 06/03 3:54 AM CDT [facility] [employer] [facility] Not Available Not Available 06/10/2024 03:07:56 06/04/19 25 06/03/2024 Drugs of abuse panel - Urine by Scree n metho d benzodiazepi shahla [presence] in urine NON DETECT ED text: non detect ed UR [place]EN[place] NON DETEC OTONIEL NON DETEC OTONIEL 06/03 3:54 AM CDT [facility] [employer] [facility] LAB Not Available Not Available 06/10/2024 03:07:56 06/04/19 25 06/03/2024 Drugs of abuse panel - Urine by Scree n metho d benzoylecgon ine [presence] in urine NON DETECT ED text: non detect ed UR COCAI NE METAB OLITE NON DETEC OTONIEL NON DETEC OTONIEL 06/03 3:54 AM CDT [facility] [employer] H [facility] Not Available Not Available 06/10/2024 03:07:56 06/04/19 25 06/03/2024 Drugs of abuse panel - Urine by Scree n metho d opiates [presence] in urine NON DETECT ED text: non detect ed UR OPIAT ES NON DETEC OTONIEL NON DETEC OTONIEL 06/03 3:54 AM CDT [facility] [employer] [facility] Not Available Not Available 06/10/2024 03:07:56 06/04/19 25 06/03/2024 Drugs of abuse panel - Urine by Scree n metho d phencyclidin e [presence] in urine NON DETECT ED text: non detect ed UR PHENC YCLID INE NON DETEC OTONIEL NON DETEC OTONIEL 06/03 3:54 AM CDT [facility] [employer] [facility] Not Available Not Available 06/10/2024 03:07:56 06/04/19 25 06/03/2024 Drugs of abuse panel - Urine by Scree n metho d cannabinoids [presence] in urine NON DETECT ED text: non detect ed UR CANNA BINOI D NON DETEC OTONIEL NON DETEC OTONIEL 06/03 3:54 AM CDT [facility] [employer] [facility] Not Available Not Available 06/10/2024 03:07:56 06/04/19 25 06/03/2024 Drugs of abuse panel - Urine by Scree n metho d barbiturates [presence] in urine NON DETECT ED text: non detect ed UR TATI TURAT E NON DETEC OTONIEL NON DETEC OTONIEL 06/03 3:54 AM CDT [facility] Not Available Not Available 06/10/2024 03:07:56 06/04/1906/03/2024 Drugs of abuse panel - Urine by Carmen pugh ur fentanyl NON DETECT ED text: non detect ed UR FENTA NYL NON DETEC OTONIEL NON DETEC OTONIEL 06/03 3:54 AM CDT [facility] Not Available Not Available 06/10/2024 03:07:56 06/04/1906/03/2024 Drugs of abuse panel - Urine by Carmen pugh interpretati on and review of laboratory results Normal Not Available Not Available 05/15 03:07:56 06/04/19 25 06/03/2024 CBC W Auto Diffe el al panel - Blood leukocytes [#/volume] in blood by automated count 6.9 text: 4.00 - 12.00 10(3)/ mcL WBC 6.90 4.00 - 12.00 10(3) /mcL 06/03 3:19 AM CDT [facility] Not Available Not Available 06/10/2024 03:07:57 06/04/19 25 06/03/2024 CBC W Auto Diffe renti al panel - Blood erythrocytes [#/volume] in blood by automated count 4.78 text: 3.80 - 5.30 10(6)/ mcL RBC 4.78 3.80 - 5.30 10(6) /mcL 06/03 3:19 AM CDT [facility] Not Available Not Available 06/10/2024 03:07:57 06/04/19 25 06/03/2024 CBC W Auto Diffe renti al panel - Blood hemoglobin [mass/volume ] in blood 13 g/dL low: 12g/dL high: 15.8g/ dL HEMOG LOBIN (HGB) 13.0 12.0 - 15.8 g/dL 06/03 3:19 AM CD[facility] Not Available Not Available 06/10/2024 03:07:57 06/04/19 25 06/03/2024 CBC W Auto Diffe renti al panel - Blood hematocrit [volume fraction] of blood by automated count 42.5 % low: 36%hig h: 47% HEMAT OCRIT (HCT) 42.5 36.0 - 47.0 % 06/03 3:19 AM [facility] Not Available Not Available 06/10/2024 03:07:57 06/04/19 25 06/03/2024 CBC W Auto Diffe renti al panel - Blood MCV [entitic volume] by automated count 88.9 fL low: 82fLhi gh: 96fL MCV 88.9 82.0 - 96.0 fL 06/03 3:19 AM CDT [facility] Not Available Not Available 06/10/2024 03:07:57 06/04/19 25 06/03/2024 CBC W Auto Diffe renti al panel - Blood MCH [entitic mass] by automated count 27.2 pg low: 26pghi gh: 34pg MCH 27.2 26.0 - 34.0 pg 06/03 3:19 AM CDT [facility] Not Available Not Available 06/10/2024 03:07:57 06/04/1906/03/2024 CBC W Auto Diffe renti al panel - Blood MCHC [mass/volume ] by automated count 30.6 g/dL low: 31g/dL high: 36g/dL low MCHC 30.6 (L) 31.0 - 36.0 g/dL 06/03 3:19 AM CD[facility] Not Available Not Available 06/10/2024 03:07:57 06/04/19 25 06/03/2024 CBC W Auto Diffe renti al panel - Blood platelets [#/volume] in blood 186 text: 140 - 440 10(3)/ mcL PLATE LET COUNT 186 140 - 440 10(3) /mcL 06/03 3:19 AM CDT [facility] Not Available Not Available 06/10/2024 03:07:57 06/04/1906/03/2024 CBC W Auto Diffe renti al panel - Blood erythrocyte distribution width [ratio] by automated count 13.2 % low: 11.8%h igh: 15.5% RDW 13.2 11.8 - 15.5 % 06/03 3:19 AM CDT [facility] Not Available Not Available 06/10/2024 03:07:57 06/04/1906/03/2024 CBC W Auto Diffe renti al panel - Blood platelet mean volume [entitic volume] in blood by automated count 10 fL low: 9.7fLh igh: 12.4fL MPV 10.0 9.7 - 12.4 fL 06/03 3:19 AM CDT [facility] Not Available Not Available 06/10/2024 03:07:57 06/04/1906/03/2024 CBC W Auto Diffe renti al panel - Blood neutrophils/ 100 leukocytes in blood by automated count 41.4 % low: 47%hig h: 73% low NEUTR OPHIL S 41.4 (L) 47.0 - 73.0 % 06/03 3:19 AM CDT [facility] Not Available Not Available 06/10/2024 03:07:57 06/04/1906/03/2024 CBC W Auto Diffe renti al panel - Blood lymphocytes/ 100 leukocytes in blood by automated count 48 % low: 18%hig h: 42% high LYMPH OCYTE S 48.0 (H) 18.0 - 42.0 % 06/03 3:19 AM CDT [facility] Not Available Not Available 06/10/2024 03:07:57 06/04/19 25 06/03/2024 CBC W Auto Diffe renti al panel - Blood monocytes/10 0 leukocytes in blood by automated count 9.1 % low: 4%high : 12% MONOC YTES 9.1 4.0 - 12.0 % 06/03 3:19 AM CDT [facility] Not Available Not Available 06/10/2024 03:07:57 06/04/19 25 06/03/2024 CBC W Auto Diffe renti al panel - Blood eosinophils/ 100 leukocytes in blood by automated count 1.2 % low: 0%high : 5% EOSIN OPHIL S 1.2 0.0 - 5.0 % 06/03 3:19 AM CD[facility] Not Available Not Available 06/10/2024 03:07:57 06/04/19 25 06/03/2024 CBC W Auto Diffe renti al panel - Blood basophils/10 0 leukocytes in blood by automated count 0.3 % low: 0%high : 1% BASOP HILS 0.3 0.0 - 1.0 % 06/03 3:19 AM CDT [facility] Not Available Not Available 06/10/2024 03:07:57 06/04/19 25 06/03/2024 CBC W Auto Diffe renti al panel - Blood neutrophils [#/volume] in blood by automated count 2.86 text: 1.60 - 7.70 10(3)/ mcL ABSOL HOLY CROSS NEUTR OPHIL S 2.86 1.60 - 7.70 10(3) /mcL 06/03 3:19 AM CDT [facility] Not Available Not Available 06/10/2024 03:07:57 06/04/19 25 06/03/2024 CBC W Auto Diffe renti al panel - Blood lymphocytes [#/volume] in blood by automated count 3.31 text: 1.30 - 3.20 10(3)/ mcL high ABSOL HOL[place] CROSS LYMPH OCYTE S 3.31 (H) 1.30 - 3.20 10(3) /mcL 06/03 3:19 AM CD[facility] Not Available Not Available 06/10/2024 03:07:57 06/04/19 25 06/03/2024 CBC W Auto Diffe renti al panel - Blood monocytes [#/volume] in blood by automated count 0.63 text: 0.20 - 1.00 10(3)/ mcL ABSOL HOLY CROSS MONOC YTES 0.63 0.20 - 1.00 10(3) /mcL 06/03 3:19 AM CDT [facility] [employer] LAB Not Available Not Available 06/10/2024 03:07:57 06/04/1906/03/2024 CBC W Auto Diffe renti al panel - Blood eosinophils [#/volume] in blood by automated count 0.08 text: 0.00 - 0.40 10(3)/ mcL ABSOL HOLY CROSS EOSIN OPHIL 0.08 0.00 - 0.40 10(3) /mcL 06/03 3:19 AM CDT [facility] [employer] LAB Not Available Not Available 06/10/2024 03:07:57 06/04/1906/03/2024 CBC W Auto Diffe renti al panel - Blood basophils [#/volume] in blood by automated count 0.02 text: 0.00 - 0.10 10(3)/ mcL ABSOL HOLY CROSS BASOP HILS 0.02 0.00 - 0.10 10(3) /mcL 06/03 3:19 AM CDT [facility] [employer] LAB Not Available Not Available 06/10/2024 03:07:57 06/04/1906/03/2024 CBC W Auto Diffe renti al panel - Blood nucleated erythrocytes /100 leukocytes [ratio] in blood 0 NRBC PER 100 WBC 0 06/03 3:19 AM CDT [facility] [employer] R [facility] Not Available Not Available 06/10/2024 03:07:57 06/04/19 25 06/03/2024 CBC W Auto Diffe renti al panel - Blood interpretati on and review of laboratory results Abnorm al Not Available Not Available 03:07:57 06/04/19 25 06/03/2024 Thyro xine (T4) free [Mass /volu me] in Serum or Plasm a thyroxine (T4) free [mass/volume ] in serum or plasma 1 NG/dL low: 0.7NG/ dLhigh : 1.9NG/ dL T4 FREE 1.0 0.7 - 1.9 ng/dL 06/03 4:01 AM CDT [facility] [employer] R LAB Not Available Not Available 06/10/2024 03:07:57 06/04/19 25 06/03/2024 Thyro xine (T4) free [Mass /volu me] in Serum or Plasm a interpretati on and review of laboratory results Normal Not Available Not Available 05/15 03:07:57 06/04/19 25 06/03/2024 Thyro tropi n [Unit s/vol ume] in Serum or Plasm a thyrotropin [units/volum e] in serum or plasma 2.14 text: 0.300 - 5.000 mIU/L TSH 2.140 0.300 - 5.000 mIU/L 06/03 4:01 AM CDT [facility] [employer] R LAB Not Available Not Available 06/10/2024 03:07:57 06/04/19 25 06/03/2024 Thyro tropi n [Unit s/vol ume] in Serum or Plasm a interpretati on and review of laboratory results Normal Not Available Not Available 05/15 03:07:57 06/04/19 25 06/03/2024 Magne sium [Mass /volu me] in Serum or Plasm a magnesium [mass/volume ] in serum or plasma 1.8 mg/dL low: 1.6mg/ dLhigh : 2.6mg/ dL MAGNE SIUM 1.8 1.6 - 2.6 mg/dL 06/03 3:41 AM CDT [facility] [employer] R LAB Not Available Not Available 06/10/2024 03:07:57 06/04/19 25 06/03/2024 Magne sium [Mass /volu me] in Serum or Plasm a interpretati on and review of laboratory results Normal Not Available Not Available 05/15 03:07:57 06/04/19 25 06/03/2024 Compr ehens marisol metab olic 2000 panel - Serum or Plasm a sodium [moles/volum e] in serum or plasma 137 mmol/ L low: 136mmo l/Lhig h: 145mmo l/L SODNazaninU M 137 136 - 145 mmol/ L 06/03 3:41 AM CDT [facility] Not Available Not Available 06/10/2024 03:07:56 06/04/19 25 06/03/2024 Compr ehens marisol metab olic 1999 panel - Serum or Plasm a potassium [moles/volum e] in serum or plasma 4 mmol/ L low: 3.5mmo l/Lhig h: 5.1mmo l/L POTAS SIUM 4.0 3.5 - 5.1 mmol/ L 06/03 3:41 AM CDT [facility] Not Available Not Available 06/10/2024 03:07:56 06/04/19 25 06/03/2024 Compr ehens marisol metab olic 1999 panel - Serum or Plasm a chloride [moles/volum e] in serum or plasma 103 mmol/ L low: 98mmol /Lhigh : 107mmo l/L CHLOR OMERO 103 98 - 107 mmol/ L 06/03 3:41 AM CDT [facility] [employer] [facility] Not Available Not Available 06/10/2024 03:07:56 06/04/1906/03/2024 Compr ehens marisol metab olic 1999 panel - Serum or Plasm a carbon dioxide, total [moles/volum e] in serum or plasma 24 mmol/ L low: 22mmol /Lhigh : 30mmol /L CO2, VENOU S 24 22 - 30 mmol/ L 06/03 3:41 AM CDT [facility] Not Available Not Available 06/10/2024 03:07:56 06/04/19 25 06/03/2024 Compr ehens marisol metab olic 2000 panel - Serum or Plasm a anion gap in serum or plasma 14 mmol/ L high: 18mmol /L ANION GAP 14.0 <18.0 mmol/ L 06/03 3:41 AM CDT [facility] Not Available Not Available 06/10/2024 03:07:56 06/04/19 25 06/03/2024 Compr ehens marisol metab olic 1999 panel - Serum or Plasm a glucose [mass/volume ] in serum or plasma 240 mg/dL low: 70mg/d Lhigh: 99mg/d L high GLUCO SE 240 (H) 70 - 99 mg/dL 06/03 3:41 AM CDT [facility] [employer] [facility] Not Available Not Available 06/10/2024 03:07:56 06/04/19 25 06/03/2024 Compr ehens marisol metab olic 2000 panel - Serum or Plasm a urea nitrogen [mass/volume ] in serum or plasma 17 mg/dL low: 10mg/d Lhigh: 20mg/d L BUN 17 10 - 20 mg/dL 06/03 3:41 AM CDT [facility] [employer] [facility] Not Available Not Available 06/10/2024 03:07:56 06/04/19 25 06/03/2024 Compr Nagisa,[employer] marisol metab olic 2000 panel - Serum or Plasm a creatinine [mass/volume ] in serum or plasma 1.03 mg/dL low: 0.6mg/ dLhigh : 1mg/dL high CREAT ININE , BLOOD 1.03 (H) 0.60 - 1.00 mg/dL 06/03 3:41 AM CDT [facility] [employer] [facility] Not Available Not Available 06/10/2024 03:07:56 06/04/19 25 06/03/2024 Compr Nagisa,[employer] marisol metab olic 2000 panel - Serum or Plasm a urea nitrogen/cre atinine [mass ratio] in serum or plasma 17 text: 12 - 20 ratio BUN/C REATI NINE RATIO 17 12 - 20 ratio 06/03 3:41 AM CDT [facility] [employer] [facility] Not Available Not Available 06/10/2024 03:07:56 06/04/19 25 06/03/2024 Compr ehens marisol metab olic 2000 panel - Serum or Plasm a protein [mass/volume ] in serum or plasma 8 g/dL low: 6g/dLh igh: 8g/dL TOTAL PROTE IN 8.0 6.0 - 8.0 g/dL 06/03 3:41 AM CDT [facility] [employer] LAB Not Available Not Available 06/10/2024 03:07:56 06/04/19 25 06/03/2024 Compr Nag[employer] marisol metab olic 2000 panel - Serum or Plasm a albumin [mass/volume ] in serum or plasma 4 g/dL low: 3.5g/d Lhigh: 5g/dL ALBUM IN 4.0 3.5 - 5.0 g/dL 06/03 3:41 AM CDT [facility] [employer] LAB Not Available Not Available 06/10/2024 03:07:56 06/04/1906/03/2024 Compr [employer] marisol metab olic 2000 panel - Serum or Plasm a albumin/glob ulin [mass ratio] in serum or plasma 1 low: 1high: 2.2 A/G RATIO 1.0 1.0 - 2.2 06/03 3:41 AM CDT [facility] [employer] [facility] Not Available Not Available 06/10/2024 03:07:56 06/04/1906/03/2024 Compr [employer] marisol [employer] olic 2000 panel - Serum or Plasm a calcium [mass/volume ] in serum or plasma 9.5 mg/dL low: 8.7mg/ dLhigh : 10.5mg /dL CALCI UM 9.5 8.7 - 10.5 mg/dL 06/03 3:41 AM CDT [facility] [employer] LAB Not Available Not Available 06/10/2024 03:07:56 06/04/19 25 06/03/2024 Compr [employer] marsiol [employer] olic 1999 panel - Serum or Plasm a bilirubin.to kimmie [mass/volume ] in serum or plasma 0.2 mg/dL low: 0.2mg/ dLhigh : 1.2mg/ dL T BILI 0.2 0.2 - 1.2 mg/dL 06/03 3:41 AM CDT [facility] [employer] [facility] Not Available Not Available 06/10/2024 03:07:56 06/04/19 25 06/03/2024 Compr ehens marisol metab olic 1999 panel - Serum or Plasm a aspartate aminotransfe rase [enzymatic activity/vol ume] in serum or plasma 39 U/L high: 43U/L SGOT (AST) 39 <43 U/L 06/03 3:41 AM CDT [facility] [employer] [facility] Not Available Not Available 06/10/2024 03:07:56 06/04/1906/03/2024 Compr ehens marisol metab olic 1999 panel - Serum or Plasm a alanine aminotransfe rase [enzymatic activity/vol ume] in serum or plasma 33 U/L high: 56U/L SGPT (ALT) 33 <56 U/L 06/03 3:41 AM CDT [facility] [employer] [facility] Not Available Not Available 06/10/2024 03:07:56 06/04/1906/03/2024 Compr ehens marisol metab olic 1999 panel - Serum or Plasm a alkaline phosphatase [enzymatic activity/vol ume] in serum or plasma 83 U/L low: 40U/Lh igh: 150U/L ALKAL INE PHOSP HATAS E 83 40 - 150 U/L 06/03 3:41 AM CDT [facility] [employer] [facility] Not Available Not Available 06/10/2024 03:07:56 06/04/1906/03/2024 Compr ehens marisol metab olic 1999 panel - Serum or Plasm a glomerular filtration rate/1.73 sq M.predicted [volume rate/area] in serum, plasma or blood by creatinine-b ased formula (CKD-epi 2020) low: 60 GFR, ESTIM ATED >60 >=60 06/03 3:41 AM CDT [facility] [employer] [facility] Not Available Not Available 06/10/2024 03:07:56 06/04/19 25 06/03/2024 Compr ehens marisol metab olic 2000 panel - Serum or Plasm a glomerular filtration rate/1.73 sq M.predicted among blacks [volume rate/area] in serum, plasma or blood by creatinine-b ased formula (MDRD) low: 60 GFR, EST. AFRIC AN >60 >=60 06/03 3:41 AM CDT [facility] Not Available Not Available 06/10/2024 03:07:56 06/04/1906/03/2024 Compr ehens marisol metab olic 2000 panel - Serum or Plasm a glomerular filtration rate/1.73 sq M.predicted among non-blacks [volume rate/area] in serum, plasma or blood by creatinine-b ased formula (MDRD) 56 low: 60 low GFR, EST. NONAF RICAN 56 (L) >=60 06/03 3:41 AM CDT [facility] Not Available Not Available 06/10/2024 03:07:56 06/04/1906/03/2024 Compr ehens marisol metab olic 2000 panel - Serum or Plasm a interpretati on and review of laboratory results Abnorm al Not Available Not Available 03:07:56 07/01/1906/03/2024 elect toshia diogr am No observ ation record ed. [email or web address] Not Available 2024 10:04:20 Result Notes None recorded. Problems Name Problem SNOMED Code Status Onset Date Resolution Date Notes Provider Name and Address Organization Details Recorded Time Allergic rhinitis 07622644 Active 2017 Rachel King PA-C Attn: Mehdi henderson,[address] [place], [address], [place] - [facility] 9 16:18:17 Candidal vulvovag initis 17122129 Completed 201805/20/2018 Rachel King PA-C Attn: Mehdi henderson,[address] [place], [address], [place] 9 16:24:26 Urinary tract infectio us disease 39136044 Completed 201809/30/2018 Rachel King PA-C Attn: Mehdi henderson,[address] [place], [address], [place] [facility] 9 17:05:57 Hyperten sive disorder 83405999 Completed 201305/05/2019 CHRISTEN BARONE NP Attn: Mehdi henderson,[address] [facility], [place], [address], [place] [facility] 0 13:46:17 Chronic kidney disease stage 3 130349950 Active Rachle King PA-C Attn: Mehdi henderson,[address] [facility], [place], [address], [place] [facility] 9 17:06:40 Contact dermatit is caused by urushiol from [place] tisha 193734295 Active 2019 CHRISTEN BARONE NP Attn: Mehdi henderson,[address] [facility], [place], [address], [place] [facility] 0 14:16:55 Seasonal allergic rhinitis 393747804 Active 2019 CHRISTEN BARONE NP Attn: Davidstephanie henderson,[address] [facility], [place], [address] [facility] 0 15:07:51 Pain in right arm 550078487 Active 2019 CHRISTEN BARONE NP Attn: Davidstephanie henderson,[address] [facility], [place], [address], [place] [facility] 0 15:07:52 Osteophy te of left knee 81182792370 9102 Active 2019 CHRISTEN BARONE NP Attn: Mehdi santiago,[address] [facility], [place], [address], [place] [facility] 0 17:00:07 History of pneumoni a 984108370 Active 2021 CHRISTEN BARONE NP Attn: Davidstephanie henderson,[address] [facility], [place], [address], [place] [facility] 2 00:42:24 Noncompl iance with medicati on regimen 497075689 Active 2022 CHRISTEN BARONE NP Attn: Davidstephanie g,[address] [facility], [place], [address], [place] [facility] 3 09:48:02 Left side sciatica 09536882238 9104 Active 2022 CHRISTEN BARONE NP Attn: Accountstephanie g,[address] [facility], [place], [address], [place] [facility] 3 15:13:25 Vitamin D deficien cy 46246358 Active 2023 CHRISTEN BRAONE NP Attn: Accountin g,[address] [facility], [place], [address], [place] [facility] 4 09:58:25 Atypical chest pain 654520480 Active 2023 CHRISTEN BARONE NP Attn: Davidstephanie g,[address] [facility], [place], [address], [place] [facility] 4 14:47:55 Pruritic disorder of skin Active 2023 CHRISTEN BARONE NP Attn: Mehdi g,[address] [facility], [place], [address] [facility] 4 14:47:57 Muscle tension 354265216 Active 2023 CHRISTEN BARONE NP Attn: Davidstephanie g,[address] [facility], [place], [address], [place] [facility] 4 12:37:20 Noncompl iance with treatmen t 7706545 Active 2024 CHRISTEN BARONE, [employer] Attn: Mehdi g,[address] [facility], [place], [address], [place] [facility] 5 14:19:29 Intertri go 32917984 Active 2024 CHRISTEN BARONE, [employer]PER[employer] Attn: Davidstephanie g,[address] [facility], [place], [address], [place] [facility] 5 14:25:40 Insomnia 378729279 Active CHRISTENSYEDA BARONE [employer]PER[employer] Attn: Accountin g,[address] [facility], [place], [place], [address] [place] [address] 2, [place] [facility] 2 09:57:44 Anxiety state 825316299 Active CHRISTENSYEDA BARONE [employer]PER[employer] Attn: Accountin g,[address] [facility], [place], [place], [address] [place] [address], [place] [facility] 4 17:52:57 Uncontro lled type 2 diabetes mellitus 325482478 Active CHRISTENSYEDA BARONE [employer]PER[employer] Attn: Accountin g,[address] [facility], [place], [place], [address] [place] [address], [place] [facility] 2 09:55:04 [facility]ia l hyperten jackson 94554354 Active CHRISTENSYEDA BARONE [employer]PER[employer] Attn: Accountin g,[address] [facility], [place], [place], [address] [place] [address], [place] [facility] 2 09:57:44 Female stress incontin ence 71748055 Active Rachel King PA-C Attn: Accountin g,[address] [facility], [place], [place], [address] [place] [address], [place] [facility] 9 16:18:16 Pure hypergly ceridemi a 097757786 Active Rachel King PA-C Attn: Accountin g,[address] [facility], [place], [place], [address] [place] [address], [place] [facility] 9 16:18:17 Chronic depressi on 749082372 Active CHRISTEN BARONE NP Attn: Accountin g,[address] [facility], [place], [address] [facility] 4 17:53:19 Eczema 73218080 Active Rachel King PA-C Attn: Accountin g,[address] [facility], [place], [place], [address] [place] [address], [place] [facility] 9 16:18:17 Right upper quadrant pain 551997009 Completed 05/20/2018 Rachel King PA-C Attn: Mehdi g,[address] [facility], [place], [address], [place] [facility] 9 16:24:52 Abnormal urine 314450684 Active Rachel King PA-C Attn: Accountstephanie g,[address] [facility], [place], [address], [place] [facility] 9 16:18:17 Hyperlip idemia 84046314 Active 2013 Rachel King PA-C Attn: Accountin g,[address] [facility], [place], [address], [place] [facility] 9 16:18:17 Obesity 541806357 Active Rachel King PA-C Attn: Accountstephanie g,[address] [place], [address], [place] [facility] 9 16:18:16 Gastroes ophageal reflux disease 521710643 Active CHRISTEN BARONE NP Attn: Accountstephanie g,[address] [facility], [place], [address], [place] [facility] 4 17:53:34 Plantar heel pain 57525984 Completed 09/30/2018 Rachel King PA-C Attn: Accountstephanie g,[address] [facility], [place], [address], [place] [facility] 9 17:05:47 Shoulder joint pain 894317365 Completed 05/20/2018 Rachel King PA-C Attn: Mehdi g,[address] [place], [address], [place] [facility] 9 16:25:07 Acute sinusiti s 16980308 Completed 09/30/2018 Rachel King PA-C Attn: Mehdi g,[address] [facility], [place], [address], [place] [facility] 9 17:06:56 Blurring of visual image 297528030 Active Rachel King PA-C Attn: Accountin g,[address] [facility], [place], [address] [facility] 9 16:18:17 Type 2 diabetes mellitus 36135361 Completed 201309/30/2018 Rachel King PA-C Attn: Accountin g,[address] [place], [address] [facility] 9 17:06:21 Abdomina l pain 04895336 Completed 05/20/2018 Rachel King PA-C Attn: Accountin g,[address] [place], [address] [facility] 9 16:24:55 Irritabl e bowel syndrome 60595681 Active Rachel King PA-C Attn: Accountin g,[address] [place], [address] [facility] 9 16:18:17 Candidia sis of vagina 89753036 Completed 09/30/2018 Rachel King PA-C Attn: Accountstephanie g,[address] [place], [address], [place] [facility] 9 17:05:53 HPV - Human papillom avirus test positive Active Rachel King PA-C Attn: Accountin g,[address] [place], [address] [facility] 9 16:18:17 Abnormal cervical Papanico laou smear 022232601 Active Rachel King PA-C Attn: Accountin g,[address] [facility], [place], [address] [facility] 9 16:18:17 Cramping pain 883990962 Active Rachel King PA-C Attn: Accountin g,[address] [place], [address] [facility] 9 16:18:17 Follow-u p visit Completed 05/20/2018 Rachel King PA-C Attn: Mehdi henderson,[address] [facility], [place], [address] [facility] 9 16:18:17 Simple lacerati on of scalp 273935757 Completed 05/20/2018 Rachel King PA-C Attn: Mehdi henderson,[address] [facility], [place], [address] [facility] 9 16:25:12 Disorder of shoulder 868269765 Active Rachel King PA-C Attn: Mehdi henderson,[address] [facility], [place], [address] [facility] 9 16:18:17 Acute injury of kidney 36945356869 565778 Completed 201609/30/2018 Rachel King PA-C Attn: Mehdi henderson,[address] [facility], [place], [address] [facility] 9 17:06:52 Chronic kidney disease stage 3 260510572 Completed 201609/30/2018 at hospital adm Rachel King PA-C Attn: Mehdi henderson,[address] [facility], [place], [address], [place] [facility] 9 17:06:40 Notes:Some problems listed i n Document: #[id number] could not be added to this patient's chart. Please review this document and add these problems to the patient's chart manually as needed. Problem Notes None recorded. Procedures Surgical History Date Name Laterality Status Provider Name and Address Organization Details Recorded Time 04/16/19 25 cardiac catheterization completed Oriana Perez RN [facility] 06/30/2024 10:18:01 03/17/19 24 Date of Last Pap Smear completed PRINCESS Baez [facility] 10/26/2023 11:59:40 12/27/19 16 Suture/Staple removal completed Mayelin Milan [facility] 12/29/2015 17:25:47 11/01/19 16 Colposcopy completed Sudha Webber CLAUDE- Attn: Accounting, [address] , [place], [address], [facility] - [facility] 11/01/2015 11:50:04 11/01/19 16 Colposcopy completed Margarita Yin [place] [facility] 11/01/2015 10:45:57 09/12/18 98 Caesarean Section completed Margarita Yin MA [place] [facility] 10/25/2015 11:41:09 Other completed Margarita Yin MA [place] [facility] [place] 10/25/2015 11:41:09 Imaging Results Imaging Date Name Status LastModified by Organization Details LastModified Time 06/03/2024 electrocardiogram completed [email or web address] Informa tion not available 06/30/2024 10:04:20 Procedure Notes None recorded. Medical Equipment None Reported. Allergies Allergen ID Allergen Name Allergen Category Reaction Reaction Severity Criticality Documentation Date Start Date Code Code System Note Provider Name and Address Organization Details Recorded Time 583951 Basaglar medicatio n itching severe Not available 06/10/2017 09297 59 RxNorm Not Available Not Available Not Available 066730 ketorolac medicatio n Not available Not available Not available 05/20/2018 62819 RxNorm Not Available Not Available Not Available 781340 Lipitor medicatio n Not available Not available Not available 12/03/2022 02115 5 RxNorm Not Available Not Available Not Available 123374 Toradol medicatio n Not available Not available Not available 12/03/2022 16901 RxNorm Not Available Not Available Not Available 092007 atorvasta tin calcium medicatio n other Not available Not available 05/15/20242023 27864 RxNorm Liver issue s Not Available Not Available Not Available 611037 insulin glargine medicatio n itching Not available high 05/15/20242022 00980 3 RxNorm Not Available Not Available Not Available 397365 ketorolac trometham ine medicatio n other Not available low 05/15/20242016 94328 RxNorm kidn ey probl ems Not Available Not Available Not Available Medications Name Sig Start Date Stop Date Status Note LastModified by Organization Details LastModified Time metoprol tar tab 100mgmeto prolol tartrate active Not Available Not Available Not Available lisinopri l tab 10mglisin opril active Not Available Not Available Not Available ondansetr on odt 4 mg tbdp active Not Available Not Available Not Available simvastat in 40 mg tabs active Not Available Not Available Not Available ranitidin e hcl 150 mg tabs active Not Available Not Available Not Available lantus inj 100/mllan tus active Not Available Not Available Not Available metformin tab 500mgmetf ormin hcl 2 tabs po bid active Not Available Not Available No t Available simvastat in tab 20mgsimva statin active Not Available Not Available Not Available insulin syrg mis 1ml/31gre lion insulin syringe/u -100/1ml/ 31g x 5/16 active Not Available Not Available Not Available hydrochlo rothiazid e 25 mg tabs Take one tab by mouth once daily. active Not Available Not Available No t Available venlafaxi ne hcl 25 mg tabs active Not Available Not Available Not Available lantus 100 unit/ml soln Take 15 units sq once daily active Not Available Not Available No t Available relion insulin syringe/u -100/1ml/ 31g x 5/16 31g x 5/16 1 ml misc active Not Available Not Available Not Available Prescript ion - Clarifica tion 06/10 completed Not Available Not Available Not Available simvastat in 20 mg tabs active Not Available Not Available Not Available Prescript ion - Prior Authoriza tion Request 06/10 completed Not Available Not Available Not Available hydrochlo rot tab 25mghydro chlorothi azide active Not Available Not Available Not Available venlafaxi ne tab 25mgvenla faxine hcl active Not Available Not Available Not Available metformin hcl 500 mg tabs active Not Available Not Available Not Available metoprolo l tartrate 100 mg tabs active Not Available Not Available Not Available metoclopr amide hcl 10 mg tabs active Not Available Not Available Not Available lisinopri l 10 mg tabs active Not Available Not Available Not Available triamcino mike cre 0.5%triam cinolone acetonide active Not Available Not Available No t Available amoxicill in 500 mg capsule 04/20 completed Not Available Not Available Not Available fluconazo le 100 mg tablet Take 1 tablet every day by oral route for 5 days. 09/30 completed Not Available Not Available Not Available atorvasta tin 40 mg tablet TAKE ONE TABLET BY MOUTH ONCE DAILY IN THE EVENING DIRECTED 11/07 completed Not Available Not Available Not Available buspirone 5 mg tablet 04/20 completed Not Available Not Available Not Available metformin 500 mg tablet TAKE 2 TABLETS BY MOUTH DAILY 10/21 completed Not Available Not Available Not Available terconazo le 0.4 % vaginal cream INSERT 1 APPLICAT ORFUL VAGINALL Y AT BEDTIME FOR 7 DAYS 06/30 completed Not Available Not Available Not Available bupropion HCl SR 150 mg tablet,12 hr sustained -release Take 1 tablet(s ) twice a day by oral route. 05/05 completed taking 1/2 tab BID Not Available Not Available Not Available venlafaxi ne ER 37.5 mg capsule,e xtended release 24 hr TAKE ONE CAPSULE BY MOUTH EVERY DAY 12/16 completed Not Available Not Available Not Available potassium chloride ER 10 mEq capsule,e xtended release TAKE ONE CAPSULE BY MOUTH ONCE DAILY 12/01 completed Not Available Not Available Not Available prednison e 10 mg tablet 09/09 completed Not Available Not Available Not Available venlafaxi ne ER 75 mg capsule,e xtended release 24 hr TAKE 1 CAPSULE BY MOUTH DAILY 09/09 completed Not Available Not Available Not Available atorvasta tin 20 mg tablet TAKE ONE TABLET BY MOUTH EVERY EVENING 09/06 completed Not Available Not Available Not Available benztropi ne 0.5 mg tablet TAKE 1 TABLET BY MOUTH EVERY DAY 05/29 completed Not Available Not Available Not Available divalproe x 250 mg tablet,de layed release TAKE 1 TABLET BY MOUTH AT BEDTIME 04/30 completed Not Available Not Available Not Available trazodone 50 mg tablet 06/10 completed Not Available Not Available Not Available triamcino lone acetonide 0.5 % topical cream APPLY A THIN LAYER TO THE AFFECTED AREA(S) OVER THE THIGH, ABDOMEN AND BACK BY TOPICAL ROUTE 2 TIMES PER DAY active Not Available Not Available No t Available cetirizin e 10 mg tablet Take 1 tablet every day by oral route for 30 days. 06/30 completed Not Available Not Available Not Available atorvasta tin 10 mg tablet TAKE ONE TABLET BY MOUTH EVERY EVENING 02/02 completed Not Available Not Available Not Available azithromy kylah 250 mg tablet TAKE 2 TABLETS (500 MG) BY ORAL ROUTE ONCE DAILY FOR 1 DAY THEN 1 TABLET (250 MG) BY ORAL ROUTE ONCE DAILY FOR 4 DAYS 12/10 completed Not Available Not Available Not Available cetirizin e 5 mg tablet TAKE 1 TABLET BY MOUTH ONCE DAILY 09/30 completed Not Available Not Available Not Available ibuprofen 800 mg tablet Take 1 tablet every 8 hours by oral route as needed for 10 days. 12/25 completed Not Available Not Available Not Available metoprolo l tartrate 100 mg tablet TAKE 1 TABLET BY MOUTH TWICE DAILY WITH MEALS active Not Available Not Available No t Available tizanidin e 4 mg tablet TAKE 1 TABLET BY MOUTH THREE TIMES A DAY NEEDED 04/29 completed Not Available Not Available Not Available fluconazo le 150 mg tablet TAKE 1 TABLET BY MOUTH TODA THEN 1 TABLET IN 72 HOURS 12/10 completed Not Available Not Available Not Available ampicilli n 500 mg capsule TAKE 1 CAPSULE BY MOUTH EVERY 6 HOURS FOR 7 DAYS 05/11 completed Not Available Not Available Not Available valacyclo vir 1 gram tablet 06/30 completed Not Available Not Available Not Available hydrocodo ne 5 mg-acetam inophen 325 mg tablet 02/02 completed Not Available Not Available Not Available ondansetr on HCl 8 mg tablet Take 1 tablet(s ) every 8 hours by oral route as needed for 4 days. 05/20 completed Not Available Not Available Not Available phenazopy ridine 200 mg tablet 12/01 completed Not Available Not Available Not Available venlafaxi ne 25 mg tablet TAKE TWO TABLETS BY MOUTH TWICE DAILY WITH FOOD active Not Available Not Available No t Available ondansetr on HCl 4 mg tablet Take one tablet po qid prn nausea/v omiting 09/17 completed Not Available Not Available Not Available quetiapin e 200 mg tablet 04/20 completed Not Available Not Available Not Available Lantus U-100 Insulin 100 unit/mL subcutane ous solution INJECT 33 UNITS SUBCUTAN EOUSLY ONCE DAILY AT BEDTIME, titrate as directed 02/02 completed pt used 35 units, but doesnt take every day Not Available Not Available Not Available permethri n 5 % topical cream APPLY (THOROUG HLY MASSAGE INTO SKIN FROM HEAD TO SOLES OF FEET) BY TOPICAL ROUTE ONCE LEAVE ON FOR 8-14 HR, THEN REMOVE BY THOROUGH WASHING 06/30 completed Not Available Not Available Not Available phentermi ne 15 mg capsule TAKE 1 CAPSULE BY MOUTH EVERY DAY 05/29 completed Not Available Not Available Not Available venlafaxi ne ER 150 mg capsule,e xtended release 24 hr TAKE 1 CAPSULE BY MOUTH ONCE DAILY active Not Available Not Available No t Available hydroxyzi ne pamoate 50 mg capsule Take one tablet by mouth three times daily 05/20 completed Not Available Not Available Not Available metronida zole 500 mg tablet Take 1 tablet twice a day by oral route for 7 days. 04/29 completed Not Available Not Available Not Available acetamino phen 300 mg-codein e 30 mg tablet 12/25 completed Not Available Not Available Not Available amlodipin e 5 mg tablet TAKE 1 TABLET BY MOUTH DAILY 05/29 completed Not Available Not Available Not Available ciproflox acin 500 mg tablet 500 mg twice a day by oral route. 05/30 completed Not Available Not Available Not Available sulfameth oxazole 800 mg-trimet hoprim 160 mg tablet TAKE 1 TABLET BY MOUTH TWICE DAILY FOR 7 DAYS FOR UTI 05/29 completed Not Available Not Available Not Available aspirin 81 mg tablet,de layed release TAKE 1 TABLET BY MOUTH EVERY DAY 2021 active Not Available Not Available Not Avai lable tramadol 50 mg tablet TAKE 1 TABLET BY MOUTH EVERY 6 HOURS NEEDED FOR MILD OR MORE SEVERE PAIN active Not Available Not Available No t Available quetiapin e 100 mg tablet 12/01 completed Not Available Not Available Not Available triamcino lone acetonide 0.1 % topical cream APPLY A THIN LEYER TO AFFECTED AREAS TWICE DAILY 11/07 completed Not Available Not Available Not Available butalbita l-acetami nophen-ca ffeine 50 mg-325 mg-40 mg tablet TAKE ONE TABLET BY MOUTH EVERY 4 TO 6 HOURS NEEDED FOR 5 DAYS. 06/10 completed Not Available Not Available Not Available simvastat in 40 mg tablet TAKE ONE TABLET BY MOUTH ONCE DAILY IN THE EVENING 12/01 completed Not Available Not Available Not Available glimepiri de 2 mg tablet TAKE 2 TABLETS BY MOUTH TWICE DAILY BEFORE MEALS 07/30 completed Not Available Not Available Not Available terconazo le 80 mg vaginal supposito ry UNWRAP AND INSERT 1 SUPPOSIT ORY VAGINALL Y EVERY DAY AT BEDTIME FOR 3 DAYS 12/16 completed Not Available Not Available Not Available ziprasido ne 20 mg capsule 05/05 completed Not Available Not Available Not Available famotidin e 20 mg tablet TAKE 1 TABLET BY MOUTH TWICE A DAY 05/11 completed Not Available Not Available Not Available clindamyc in 1 % topical gel 09/06 completed Not Available Not Available Not Available triamcino lone acetonide 0.025 % topical cream APPLY A THIN LAYER TO AFFECTED AREA TWICE DAILY FOR 7 DAYS THEN ONCE DAILY FOR 7 DAYS 09/09 completed Not Available Not Available Not Available trazodone 100 mg tablet TAKE 1 TABLET BY MOUTH EVERY NIGHT active Not Available Not Available No t Available Lice Treatment (permethr in) 1 % topical liquid APPLY A SUFFICIE NT AMOUNT OF SHAMPOO BY TOPICAL ROUTE ONCE ALLOW TO REMAIN ON HAIR FOR 10 MINUTES BEFORE RINSING OFF WITH WATER 11/03 completed Not Available Not Available Not Available dicyclomi ne 20 mg tablet Take 1 tablet(s ) up to 4 TIMES A DAY as needed for stomach discomfo rt by oral route. 05/21 completed Not Available Not Available Not Available [employer] Ultra Test strips USE TO TEST BLOOD SUGAR FOUR TIMES DAILY BEFORE MEALS DIRECTED active Not Available Not Available No t Available imiquimod 5 % topical cream packet APPLY CREAM EXTERNAL LY TO AFFECTED AREA 5 TIMES A WEEK 05/11 completed Not Available Not Available Not Available phenazopy ridine 100 mg tablet 09/30 completed Not Available Not Available Not Available amlodipin e 10 mg tablet TAKE 1 TABLET BY MOUTH DAILY 10/21 completed Not Available Not Available Not Available benzonata te 100 mg capsule active Not Available Not Available Not Available glipizide ER 2.5 mg tablet, extended release 24 hr TAKE ONE TABLET BY MOUTH ONCE DAILY 11/07 completed Not Available Not Available Not Available cephalexi n 500 mg capsule 05/05 completed Not Available Not Available Not Available paroxetin e 20 mg tablet Take one tablet by mouth daily 05/21 completed Not Available Not Available Not Available simvastat in 20 mg tablet TAKE ONE TABLET BY MOUTH ONCE DAILY AT BEDTIME active Not Available Not Available No t Available venlafaxi ne 37.5 mg tablet TAKE 1 TABLET BY MOUTH EVERY DAY 04/30 completed Not Available Not Available Not Available hyoscyami ne sulfate 0.125 mg tablet TAKE ONE TABLET BY MOUTH EVERY 4 HOURS NEEDED FOR Gl UPSET 06/10 completed Not Available Not Available Not Available metformin 1,000 mg tablet TAKE 1 TABLET BY MOUTH TWICE DAILY WITH MEALS active Not Available Not Available No t Available triamcino lone acetonide 0.1 % topical ointment APPLY THIN LAYER TOPICALL Y TO THE AFFECTED AREA TWICE DAILY 06/30 completed Not Available Not Available Not Available ropinirol e 0.5 mg tablet TAKE 1 TABLET BY MOUTH ONCE DAILY AT BEDTIME 04/20 completed Not Available Not Available Not Available nystatin 100,000 unit/gram topical cream APPLY CREAM TOPICALL Y TO AFFECTED AREA TWICE DAILY active Not Available Not Available No t Available ranitidin e 150 mg tablet TAKE ONE TABLET BY MOUTH TWICE DAILY 12/01 completed Not Available Not Available Not Available buspirone 10 mg tablet 11/07 completed Not Available Not Available Not Available lisinopri l 10 mg tablet TAKE 1 TABLET BY MOUTH ONCE DAILY 12/01 completed Not Available Not Available Not Available divalproe x ER 500 mg tablet,ex tended release 24 hr 09/09 completed Not Available Not Available Not Available lidocaine 5 % topical patch APPLY 1 PATCH TOPICALL Y ONCE DAILY. MAY WEAR UP TO 12 HOURS. active Not Available Not Available No t Available divalproe x 125 mg tablet,de layed release TAKE 1 TABLET BY MOUTH EVERY NIGHT AT BEDTIME 04/29 completed Not Available Not Available Not Available benztropi ne 1 mg tablet TAKE 1 TABLET BY MOUTH ONCE DAILY active Not Available Not Available No t Available nitroglyc makenzie 0.4 mg sublingua l tablet Place 1 tablet as needed by sublingu al route, for chest pain. Max 3 in 15 mins. 2024 active Not Available Not Available Not Avai lable lisinopri l 30 mg tablet TAKE 1 TABLET BY MOUTH ONCE DAILY DIRECTED FOR HIGH BLOOD PRESSURE 11/08 completed Not Available Not Available Not Available lisinopri l 20 mg-hydroc hlorothia zide 25 mg tablet TAKE 1 TABLET BY MOUTH DAILY 05/11 completed chronic kidney dz Not Available Not Available Not Available diclofena c sodium 75 mg tablet,de layed release TAKE ONE TABLET BY MOUTH TWICE DAILY WITH FOOD 05/14 completed kidney function Not Available Not Available Not Available hydroxyzi ne HCl 25 mg tablet TAKE 1 TABLET BY MOUTH TWICE DAILY NEEDED active Not Available Not Available No t Available alcohol swabs use 1 pad twice a day for glucose check and for insulin administ ration active Not Available Not Available No t Available hydrochlo rothiazid e 25 mg tablet TAKE 1 TABLET BY MOUTH ONCE DAILY 04/20 completed Not Available Not Available Not Available ziprasido ne 40 mg capsule 05/05 completed Not Available Not Available Not Available ergocalci ferol (vitamin D2) 1,250 mcg (50,000 unit) capsule Take 1 capsule every week by oral route. 04/29 completed Not Available Not Available Not Available ibuprofen 600 mg tablet Take 1 tablet 3 times a day by oral route as needed. 02/02 completed Not Available Not Available Not Available levofloxa kylah 500 mg tablet active Not Available Not Available No t Available albuterol sulfate HFA 90 mcg/actua tion aerosol inhaler INHALE 2 PUFFS BY MOUTH EVERY 4 HOURS 05/11 completed Not Available Not Available Not Available paroxetin e 40 mg tablet 05/21 completed Not Available Not Available Not Available lisinopri l 40 mg tablet TAKE 1 TABLET BY MOUTH ONCE DAILY active Not Available Not Available No t Available ondansetr on 4 mg disintegr ating tablet DISSOLVE 1 TABLET IN MOUTH EVERY 6 HOURS NEEDED FOR NAUSEA active Not Available Not Available No t Available cefdinir 300 mg capsule 07/30 completed Not Available Not Available Not Available fluoxetin e 20 mg capsule 09/22 completed Not Available Not Available Not Available fluticaso ne propionat e 50 mcg/actua tion nasal spray,anali pension USE 1 SPRAY(S) IN EACH NOSTRIL ONCE DAILY active Not Available Not Available No t Available risperido ne 1 mg tablet 02/02 completed Not Available Not Available Not Available loratadin e 10 mg tablet Take 1 tablet every day by oral route. 05/29 completed Not Available Not Available Not Available metoclopr amide 10 mg tablet active Not Available Not Available No t Available amoxicill in 875 mg-potass ium clavulana te 125 mg tablet TAKE 1 TABLET BY MOUTH TWICE DAILY FOR 7 DAYS 12/03 completed Not Available Not Available Not Available buspirone 15 mg tablet TAKE 1 TABLET BY MOUTH THREE TIMES DAILY active Not Available Not Available No t Available hydroxyzi ne pamoate 25 mg capsule TAKE 1 CAPSULE BY MOUTH THREE TIMES DAILY NEEDED 12/01 completed Not Available Not Available Not Available azithromy kylah 500 mg tablet TAKE 2 TABLETS BY MOUTH EVERY DAY FOR 1 DAY 06/12 completed Not Available Not Available Not Available divalproe x ER 250 mg tablet,ex tended release 24 hr TAKE 1 TABLET BY MOUTH AT BEDTIME active Not Available Not Available No t Available Novolog FlexPen U-100 Insulin aspart 100 unit/mL (3 mL) subcutane ous 10 units tid 04/29 completed Not Available Not Available Not Available rosuvasta tin 20 mg tablet 05/11 completed Not Available Not Available Not Available rosuvasta tin 40 mg tablet TAKE 1 TABLET BY MOUTH DAILY AT BEDTIME 05/29 completed Not Available Not Available Not Available nitrofura ntoin monohydra te/macroc rystals 100 mg capsule TAKE 1 CAPSULE BY MOUTH EVERY 12 HOURS FOR 5 DAYS 05/11 completed Not Available Not Available Not Available BD Ultra-Fin e Mini Pen Needle 31 gauge x 3/16 09/17 completed Not Available Not Available Not Available fenofibra te 160 mg tablet TAKE 1 TABLET BY MOUTH EVERY DAY IN THE MORNING 07/31 completed Not Available Not Available Not Available chlorhexi dine gluconate 0.12 % mouthwash 06/30 completed Not Available Not Available Not Available buspirone 5mg 1 PO qd 04/20 completed Not Available Not Available Not Available OneTouch UltraMini kit active Not Available Not Available Not Available quetiapin e 50 mg tablet 04/20 completed Not Available Not Available Not Available OneTouch Ultra2 Meter 06/21 completed Not Available Not Available Not Available cholecalc iferol (vitamin D3) 25 mcg (1,000 unit) tablet TAKE 1 TABLET BY MOUTH ONCE DAILY FOR 90 DAYS active Not Available Not Available No t Available Januvia 50 mg tablet 11/07 completed Not Available Not Available Not Available Gaffney Oil 1,000 mg capsule Take 1 capsule by oral route. 04/29 completed Not Available Not Available Not Available Sure Comfort Pen Needle 31 gauge x 5/16 USE WITH INSULIN AND VICTOZA 6 TIMES PER DAY active Not Available Not Available No t Available cholecalc iferol (vitamin D3) 1,250 mcg (50,000 unit) capsule TAKE 1 CAPSULE BY MOUTH ONCE A WEEK 05/18 completed Not Available Not Available Not Available Lantus Solostar U-100 Insulin 100 unit/mL (3 mL) subcutane ous pen INJECT 44 UNITS UNDER THE SKIN IN THE MORNING AND 46 UNITS EVERY NIGHT AT BEDTIME. TITRATE TO GOAL FASTING GLUCOSE OF 90 TO 130 MG/DL 06/30 completed Not Available Not Available Not Available quetiapin e ER 150 mg tablet,ex tended release 24 hr Take 1 tablet every day by oral route. 04/20 completed Not Available Not Available Not Available TRUEplus Insulin 1 mL 31 gauge x 5/16 syringe USE ONE SYRINGE AT BEDTIME WITH LANTUS 09/06 completed Not Available Not Available Not Available TRUEplus Lancets 33 gauge 09/06 completed Not Available Not Available Not Available Victoza 3-Padilla 0.6 mg/0.1 mL (18 mg/3 mL) subcutane ous pen injector ADMINIST ER 1.8 MG UNDER THE SKIN EVERY DAY WITH MEALS 09/09 completed Not Available Not Available Not Available Jardiance 10 mg tablet 04/29 completed Not Available Not Available Not Available Jardiance 25 mg tablet TAKE 1 TABLET BY MOUTH ONCE DAILY active Not Available Not Available No t Available Tresiba FlexTouch U-200 insulin 200 unit/mL (3 mL) subcutane ous pen 22units @ hs 09/09 completed Not Available Not Available Not Available Vraylar 1.5 mg capsule TAKE 1 CAPSULE BY MOUTH ONCE DAILY active Not Available Not Available No t Available Vraylar 3 mg capsule TAKE ONE CAPSULE BY MOUTH EVERY DAY 04/30 completed Not Available Not Available Not Available Procto-Me d HC 2.5 % topical cream perineal applicato r APPLY A THIN LAYER TO THE AFFECTED AREA(S) BY TOPICAL ROUTE 2-4 TIMESDAI LY 12/01 completed Not Available Not Available Not Available bupropion HCl 150 mg tablet,12 hr sustained -release( smoking deterrent ) active Not Available Not Available Not Available Xultophy 100/3.6 100 unit-3.6 mg/mL (3 mL) subcutane ous insulin pen INJECT 30 UNITS SUBCUTAN EOUSLY ONCE DAILY active Not Available Not Available No t Available Admelog SoloStar U-100 Insulin lispro 100 unit/mL subcutane ous pen ADMINIST ER 10 UNITS UNDER THE SKIN THREE TIMES DAILY BEFORE MEALS 07/17 completed Not Available Not Available Not Available OneTouch Ultra Blue Test Strip TEST BLOOD SUGAR TWICE DAILY 2019 active Not Available Not Available Not Avai lable BD Asuncion 2nd Gen Pen Needle 32 gauge x 5/32 USE TO INJECT INSULIN 4 TIMES DAILY BEFORE MEALS AND NIGHTLY. active Not Available Not Available No t Available OneTouch Ultra2 Meter USE DIRECTED TO CHECK GLUCOSE active Not Available Not Available No t Available Vitals Date Recorded Body height Respiratory rate Body mass index (BMI) Body weight Body temperature Heart rate Oxygen saturation Oxygen saturation in Arterial blood by Pulse oximetry Systolic blood pressure Diastolic blood pressure Provider Name and Address Organization Details Last Updated DateTime 5 165.1 cm 16 /min 28.3 kg/m2 87669.7 g 96.9 [degF] 96 /min 98 % 98 % 141 mm[Hg] 89 mm[Hg] Sonja Gamino MA [facility] 5 12:40:02 Date Recorded Body height Respiratory rate Body mass index (BMI) Body weight Body temperature Heart rate Oxygen saturation Oxygen saturation in Arterial blood by Pulse oximetry Systolic blood pressure Diastolic blood pressure Systolic blood pressure Diastolic blood pressure Provider Name and Address Organization Details Last Updated DateTime 5 165.1 cm 16 /min 28.6 kg/m2 42102.8 9 g 96.4 [degF] 64 /min 99 % 99 % 171 mm[Hg] 115 mm[Hg] 179 mm[Hg] 117 mm[Hg] Sonja Gamino MA [facility] 5 12:06:42 Date Recorded Body height Body mass index (BMI) Body weight Body temperature Respiratory rate Heart rate Oxygen saturation Oxygen saturation in Arterial blood by Pulse oximetry Systolic blood pressure Diastolic blood pressure Provider Name and Address Organization Details Last Updated DateTime 5 165.1 cm 27.9 kg/m2 87146.1 6 g 96.9 [degF] 16 /min 69 /min 99 % 99 % 154 mm[Hg] 95 mm[Hg] Xiomara Kraft MA [facility] 5 10:53:15 Date Recorded Body height Body mass index (BMI) Body weight Oxygen saturation Oxygen saturation in Arterial blood by Pulse oximetry Heart rate Respiratory rate Body temperature Systolic blood pressure Diastolic blood pressure Provider Name and Address Organization Details Last Updated DateTime 5 165.1 cm 28.9 kg/m2 80823.2 8 g 98 % 98 % 84 /min 16 /min 97.1 [degF] 156 mm[Hg] 90 mm[Hg] Brynn Pelaez MA [facility] 5 10:54:36 Date Recorded Body height Body mass index (BMI) Body weight Heart rate Oxygen saturation Oxygen saturation in Arterial blood by Pulse oximetry Systolic blood pressure Diastolic blood pressure Provider Name and Address Organization Details Last Updated DateTime 5 165.1 cm 28.8 kg/m2 79929.4 8 g 73 /min 99 % 99 % 158 mm[Hg] 88 mm[Hg] Oriana Perez RN [facility] 5 10:14:01 Social History Question Answer Notes LastModified by Organizat ion Details LastModified Time Tobacco Smoking Status Never Smoker EVELIA Palm, [facility] 07/05/2014 16:33:03 What Is Your Level Of Alcohol Consumption? Occasional Information not available 04/08/2024 Are You Blind Or Do You Have Difficulty Seeing? Yes Reading Glasses Information not available 07/30/2020 What Is Your Level Of Caffeine Consumption? Moderate Diet Pepsi [email or web address] Information not available 07/08/2018 How Much Tobacco Do You Chew? None Information not available 05/20/2018 In The 14 Days Before Symptom Onset, Have You Had Close Contact With A [facility] COVID-19 While That Case Was Ill? No Information not available 04/30/2021 In The 14 Days Before Symptom Onset, Have You Had Close Contact With A Person Who Is Under Investigation For COVID-19 While That Person Was Ill? No Information not available 04/30/2021 Have You Been To An Area Known To Be High Risk For COVID-19? No Information not available 04/30/2021 Are You Currently Employed? No Information not available 07/30/2020 Are You Deaf Or Do You Have Serious Difficulty Hearing? No Information not available 07/30/2020 What Type Of Diet Are You Following? DIABETIC Some Days [email or web address] Information not available 09/30/2018 Which Illicit Or Recreational Drugs Have You Used? No Information not available 05/20/2018 Do You Or Have You Ever Used E-cigarettes Or Vape? Never Used Electronic Cigarettes Information not available 11/08/2019 Education 12 Information n ot available 05/20/2018 Are There Any Guns Present In Your Home? No Information not available 05/20/2018 Hard Of Hearing Or Deaf In One Or Both Ears? No Information not available 05/20/2018 Legally Blind In One Or Both Eyes? No Information no t available 05/20/2018 Do You Have A High School Diploma Or Higher Education? Yes Information not available 07/30/2020 Do You Sometimes Have To Miss Your Medical Appointments Due To Difficult Getting Transportation? No Information not available 07/30/2020 Do You Feel Unfairly Treated Due To Things Such As Race, Age, Gender, Disability Or Some Other Reason? No Information not available 07/30/2020 Do You Feel Physically And Emotionally Safe While Living At Home? Yes Information not available 07/30/2020 Do You Feel Physically And Emotionally Safe In Your Neighborhood Or Other Public Places? Yes Information not available 07/30/2020 Marital Status Informati on not available 05/20/2018 What Was The Date Of Your Most Recent Tobacco Screening? 06/30/2024 Information not available 06/30/2024 How Many Children Do You Have? 0 Information not available 04/08/2024 Performs Monthly Self-breast Exam? No Information no t available 05/20/2018 What Is Your Relationship Status? Since 2009 Information not available 04/08/2024 Do You Use Your Seat Belt Or Car Seat Routinely? Yes Information not available 03/19/2022 Seat Belts Used Routinely Yes Information not available 05/20/2018 Smoke Alarm In Home Yes Information not available 05/20/2018 Do You Have Smoke And Carbon Monoxide Detectors In Your Home? Yes Information not available 07/30/2020 Are You Passively Exposed To Smoke? Yes Information no t available 07/30/2020 Do You Or Have You Ever Used Smokeless Tobacco? Never Used Smokeless Tobacco Information not available 11/08/2019 General Stress Level Low Information not available 12/26/2019 Do You Feel Stressed (tense, Restless, Nervous, Or Anxious, Or Unable To Sleep At Night)? [id number] Information not available 05/18/2024 Do You Use Any Illicit Or Recreational Drugs? No Information not available 07/30/2020 Do You Use Sunscreen Routinely? Yes Information not available 05/20/2018 Has Tobacco Cessation Counseling Been Provided? No Information not available 01/28/2024 On What Date Was Tobacco Cessation Counseling Provided? 06/30/2024 Information not available 06/30/2024 Sex: Female Functional Status Question Answer Note LastModified by Organizat ion Details LastModified Time Are you able to care for yourself? Yes Information not available 07/30/2020 What is your exercise level? Occasional Information not available 04/08/2024 Mental Status None recorded. Family History Relationship Description Onset Age of this Age Resolved Age Notes LastModified by Organization Details LastModified Time Mother Hypertensive disorder [email or web address] Not available 2015 11:29:04 Father Diabetes mellitus [email or web address] Not available 2015 11:29:04 Father Hypertensive disorder [email or web address] Not available 2015 11:29:04 Father Hypercholest erolemia cmilster Not available 2015 11:29:04 Notes:No new reported 5 Medical History Condition Response Coronary Artery Disease N Other N High Blood Pressure Y Atrial Fibrillation N Thyroid Problems N Kidney or Bladder Problems N Blood Clots N COPD N Depression Y GI Problems N Skin Problems N Anemia N Heart Attack (AR) N Anxiety Disorder Y Diabetes Y Muscle, Joint, or Bone Problems N Seizures/Epilepsy N Acid Reflux (GERD) Y Cancer N Stroke N Asthma N Allergies High Cholesterol Y Hepatitis N Liver Disease N Headaches N Heart Failure N Osteoporosis N Gynecological History Statement/Question Response Abnormal Pap Yes Date of Last Mammogram Flow Moderate STIs/STDs Y Age at Menarche 10 Current Control Method None Age at First Child 28 Sexually Active? Y Menses Monthly Y Date of Last Pap Smear 03/17/2023 LMP Definite Obstetrics History GPAL:G 1 P 1 0 0 1 Type Value Full Term 1 Living 1 Total 1 Immunizations Vaccine Type Date Status Note Provider Nam e and Address Organization Details Recorded Time Influenza, split virus, quadrivalent, preservative 2 completed CHRISTEN BARONE NP Attn: [address] [place], [place], [address] [place] [address], [place] - [facility] 03/19/2022 10:03:41 pneumococcal polysaccharide PPV23 1 completed Rachel King PA-C Attn: [address] [place], [place], [address] [place] [address], [place] [facility] 05/20/2018 16:18:51 Tdap 0 completed Racehl King PA-C Attn: [address] [place], [address] [place] [address], [place] [facility] 05/20/2018 16:18:51 Influenza, split virus, quadrivalent, preservative 9 completed Not Available [facility] 04/02/2019 02:39:49 Influenza, split virus, quadrivalent, preservative 0 completed DAVY Araujo, [place] [facility] 12/26/2019 18:05:34 Tdap 3 completed Jovi Mcfarlane MD Attn: [address] [place], [place], [address] [place] [address], [place] [facility] 03/24/2022 10:13:30 Influenza, split virus, quadrivalent, preservative 3 completed Jovi Mcfarlane MD Attn: [address] , [place], [address], [facility] 03/24/2022 10:13:30 Influenza, split virus, quadrivalent, preservative 3 completed CHRISTEN BARONE NP Attn: [address] , [place], [address], [facility] 12/03/2022 13:22:42 Influenza, split virus, quadrivalent, preservative 5 completed Not Available [facility] 04/02/2019 02:32:11 Past Encounters Encounter ID Performer Location Encounter Start Date Encounter Closed Date Diagnosis/Indication Diagnosis SNOMED-CT Code Diagnosis ICD10 Code Diagnosis Note [id number] [facility] (Adult Med) [address] [place] [address] 07/05/2014 16:04:27 07/06/2014 09:54:33 Uncontrolled type 2 diabetes mellitus [id number] NON COMPLIANT PATIENT.NO T COMING FOR FOLLOWING UPS.NOT TAKING INSULIN AND MEDICATION S.Patient used to take Lantus insulin 13 units qhs but not taking it now. Continue Metformin and advised patient to do the labs and come for follow up. Essential hypertension [id number] NON COMPLIANT PATIENT.NO T COMING FOR FOLLOWING UPS.NOT TAKING MEDICATION S. Restart Metoprolol and Lisinopril . Continue HCTZ. Low salt diet and regular exercise advised. Screening for malignant neoplasm of breast [id number] Chronic depression [id number] Restart Velnafaxin e 25 mg 2 tabs po bid. Advised patient to folow up with Psychiatri st. Eczema [id number] [facility] (Adult Med) [address] [place] [address] 07/19/2014 15:48:29 07/19/2014 17:17:19 Uncontrolled type 2 diabetes mellitus [id number] NON COMPLIANT PATIENT.. Continue Lantus insulin 13 units qhs and Metformin. Blood sugars are around 80 before breakfast according to the patient . will repeat the HBA1C in 3 months. Essential hypertension [id number] Blood presssure controlled . Continue same medication s. Advised about medication compliance . Low salt diet and regular exercise advised. Pure hyperglyceridemia [id number] Advised about diet control. Continue Simvastati n for now.Check lipid panel in 3 months. [id number] DAVY Tejeda (Adult Med) [address] [place] [address] 08/23/2014 15:51:11 08/24/2014 09:44:58 Right upper quadrant pain [id number] Patient is c/o nausea abdominal pain at the RUQ and Epigastric area and diarrhea. Went to ER .labs were done.Er Physicain advised U/S to rule out gall bladder stones. Abdominal pain improved. Could be gastroente ritis vs gall bladder stones. Start Ranitidine 150 mg po bid. Schedule U/S abdomen. Abnormal urine [id number] Urine analysis from the ER showed trace of leukocyte and blood. urine dipstick is negative for leucocyte ,blood and nitrite. [id number] Kavita (Adult Med) [address] [place] [address] 11/06/2014 15:41:03 11/06/2014 17:35:09 Uncontrolled type 2 diabetes mellitus [id number] NON COMPLIANT PATIENT.Mu ltiple no shows. Increase Lantus insulin 15 units qhs and continue Metformin. will repeat the HBA1C in 3 months. Essential hypertension 48459069 Blood presssure controlled . Continue same medication s. Advised about medication compliance . Low salt diet and regular exercise advised. Hyperlipidemia 56920098 Increase the Simvastati n to 40 mg po daily. Chronic depression 193194805 Restart Velnafaxin e 25 mg 2 tabs po bid. Advised patient to folow up with Psychiatri . Obesity 008525228 advise d low fat,low carb,low cholestero l diet,regul ar exercise and weight reduction. [id number] Den Walls (Adult Med) [address] [place] [address] 02/27/2015 15:41:36 02/28/2015 12:49:33 Uncontrolled type 2 diabetes mellitus 084382016 E11.65 HBA1C improved fron 8.2 to 7.2. Continue Lantus insulin 15 units qhs and continue Metformin. Diabetic diet advised. Essential hypertension 00012113 I10 Blood presssure controlled . Continue same medication s. Low salt diet and regular exercise advised. Hyperlipidemia 18675581 E78.5 LDL well controlled . Continue the Simvastati n to 40 mg po daily. Triglyceri lewis were high.Advis ed regular exercise and weight reduction. Chronic depression 84413 0009 F34.1 Patient stopped taking the Velnafaxin e . She is following the counselor. Influenza vaccine needed [id number] 106 Z23 Screening for malignant neoplasm of breast 571075219 Z12.39 Patient was advised in June to do the Mammogram but she forgot to do the Mammogram. Mammogram request given. [id number] Den Walls (Adult Med) [address] [place] [address] 04/04/2015 15:39:35 04/06/2015 16:03:23 Plantar heel pain 94267307 M79.671 M79.672 Patient is /co B/L Heel pain. Advised patient to use soft shoes and use insoles. Try Ibuprofen as needed for the pain. If the pain if not improving, will do x ray both heels. [id number] [facility] [address] [place] [address] 05/01/2015 14:08:29 05/09/2015 15:44:40 Uncontrolled type 2 diabetes mellitus 847721582 E11.65 Essential hypertension 37937038 I10 Hyperlipidemia 60044762 E78.5 Plantar heel pain 722822 03 M79.671 M79.675 right greater than left Shoulder joint pain 2679 66590 M25.511 Screening for malignant neoplasm of breast 404336670 Z12.39 [id number] [facility] [address] [place] [address] 10/04/2015 18:58:43 10/08/2015 17:47:40 Acute sinusitis 26375107 J01.90 Uncontroll ed type 2 diabetes mellitus 719852127 E11.65 Blurring o f visual image 924337709 H53.8 with DM 2 and insulin therapy [id number] [facility] [address] [place] [address] 10/18/2015 11:27:49 10/25/2015 12:04:52 Type 2 diabetes mellitus 83790366 E11.9 Abdominal pain 40661054 R10.13 Irritable bowel syndrome 59974142 K58.9 Gastroesop hageal reflux disease 008968088 K21.9 Hyperlipidemia 18637951 E78.5 [id number] Mahsa Kristina [facility] ([facility] 122) [address] [facility] [place] [address] 10/25/2015 11:29:52 10/25/2015 18:20:26 Candidiasis of vagina 47353216 B37.3 [id number] Sudha Webber [facility] [place] [facility] ([facility] 122) [address] [facility] [place] [address] 11/01/2015 10:41:31 11/01/2015 14:10:02 detection examination 23302464 Z32.00 HPV - Lore n papillomavirus test positive 714470035 R87.619 Abnormal c ervical Papanicolaou smear 863008932 R87.619 [id number] Webber [facility] [address]) [address] [facility] [place] [address] 11/14/2015 15:21:41 11/14/2015 16:03:49 Follow-up visit 012239087 Z09 [id number] [facility] [address] [address] 12/27/2015 11:15:37 12/28/2015 11:20:15 Simple laceration of scalp 312104085 S01.01XD 4 sugey removed without difficulty Disorder of shoulder 118 545183 M25.811 M25.812 bilateral pain and limited ROM x 2 years, with increasing pain past 1 month [id number] Mayelin Márquez [place] [address] [place] [address] 04/10/2016 17:18:23 04/14/2016 11:45:40 Type 2 diabetes mellitus 84792900 E11.9 Essential hypertension 18420115 I10 Disorder of shoulder 118 301635 M25.811 M25.812 bilateral pain and limited ROM x 2 years, with increasing pain past 1 month Fatigue 81102266 R53.83 Positive s creening for depression on PHQ-9 (Patient Health Questionnaire 9) 1150690651 08151 Z13.89 continue with [facility] behavioral health [id number] [address] [address] 05/07/2016 16:04:54 05/08/2016 12:33:46 Viral gastroenteritis 099245508 A08.39 resolving Chronic ki dney disease 041677074 N18.3 Type 2 braydon betes mellitus 60538152 E11.9 Hyperlipidemia 86366207 E78.2 Essential hypertension 60226250 I10 Positive s creening for depression on PHQ-9 (Patient Health Questionnaire 9) 0995119031 97353 Z13.89 05/07/16 - sees counselor and Dr Cesar at [facility] mental health, on venlafaxin e [id number] Anne Davison [address] [address] 05/08/2016 10:11:30 05/08/2016 11:43:45 Chronic kidney disease stage 3 934023198 N18.3 Diabetes mellitus 136483 09 E11.[id number] [address] 05/14/2016 16:52:18 05/15/2016 12:13:03 Acute injury of kidney 4929348963 2179525 N17.8 Type 2 braydon betes mellitus 98293203 E11.[id number] [address] 06/04/2016 16:20:26 06/09/2016 13:25:00 Shoulder joint pain 067870128 M25.511 M25.512 Acute inju ry of kidney 3373559434 7892707 N17.8 [id number] OLU BROWN NP [address] [address] 09/22/2016 14:13:25 09/24/2016 12:55:05 Abdominal pain 08268800 R10.13 Acne 95795730 L70.8 Migraine without aura 56 252181 G43.009 Type 2 braydon betes mellitus 82992594 E11.9 Adult heal th examination 882873518 Z00.00 [id number] JANINE Cox ([facility] 122) 2 [facility] [address] [place] [address] 02/20/2017 15:05:12 02/20/2017 15:56:38 Abnormal cervical Papanicolaou smear 791429253 R87.619 1. Pap done-sent to lab. 2. Counseled on safe sex and condom use and safe sex practices- declined blood draw 5.F/u in one year or sooner if needed Possible 59421 4004 Z32.00 Screening mammography 24 548845 Z12.31 annual mammogram advised and order given to pt [id number] OLU BROWN NP [address] [address] 03/12/2017 16:13:30 03/17/2017 12:36:41 Restless legs 15661917 G25.81 Complainin g of cold feet 584724839 R20.8 Type 2 braydon betes mellitus 28900973 E11.9 [id number] OLU BROWN NP [address] [address] 05/21/2017 16:40:44 05/22/2017 15:24:38 External hemorrhoids 64914975 K64.4 Contact dermatitis 87062 004 L25.9 Type 2 braydon betes mellitus 04981079 E11.9 [id number] OLU BROWN NP [address] [address] 06/10/2017 14:37:55 06/11/2017 12:13:11 Allergic rhinitis caused by pollen 81655769 J30.1 Uncontroll ed type 2 diabetes mellitus 493393193 E11.65 [id number] OLU BROWN NP [address] [address] 09/17/2017 18:58:59 09/18/2017 12:53:59 Adult health examination 357303106 Z00.00 Essential hypertension 43986418 I10 [id number] OLU BROWN NP [address] [address] 12/01/2017 14:21:42 12/01/2017 15:50:25 Essential hypertension 57816708 I10 Otalgia 94106131 H92.03 Noncomplia nce with medication regimen 805507791 Z91.14 financiall y unable to cover lisinopril at this time. [id number] Mahsa Estevez MA [facility] [address] [place] [address] 12/04/2017 16:02:33 12/07/2017 14:55:35 Diabetes mellitus 53850367 E11.9 [id number] OLU BROWN NP [facility] [address] [place] [address] 12/18/2017 15:29:31 12/18/2017 16:15:35 Nausea 275202283 R11.0 Allergic rhinitis 578502 04 J30.1 Uncontroll ed type 2 diabetes mellitus 870112171 E11.65 Hyperlipidemia 33102488 E78.2 [id number] Rachel King PA-C [place] [address] [place] [address] 04/20/2018 15:32:56 05/04/2018 10:06:46 Uncontrolled type 2 diabetes mellitus 636860844 E11.65 last A1c 8.1% in Nov, but pt not checking regularly, only when not feeling well, she reports glucose in 200-300s for several months. cont metformin 1000mg bid and increase Lantus at bedtime until fasting glucose less than 150s consistent ly. Start at 33u today and increase every 3 days. Call weekly with numbers, short term f/u in 4 weeks. Dysuria-fr equency syndrome 3185028 R30.0 r/o infection, likely due to poor glycemic control Candidiasis of vagina 72 725224 B37.3 sxs for over a month, recommend she start OTC monistat, take one time diflucan and make appt with financial aid counselor. Seasonal a llergic rhinitis 911560185 J30.2 Disorder of shoulder 118 249494 M25.811 started w/ injury years ago on right shoulder, now traveling to neck and other shoulder. revisit at f/u, once blood sugars under better control we can workup the chronic shoulder & neck pains. Discussed tendinitis sxs. Body mass index 30+ - obesity 510366607 Z68.32 discussed diet and exercise, advised her to stay active despite aches & pains. She is agreeable to restarting bupropion for curbing appetite/f ood cravings. Mixed hyperlipidemia 267 438618 E78.2 high trig in Nov, could not calculate LDL, discussed getting fasting labs [id number] Rachel King PA-C [address] [place] [address] 05/20/2018 15:24:23 06/08/2018 15:55:14 Abnormal urine 486442181 R82.90 UTI tx in ER, taking Cipro now. Initial cx growing Klebsiella . We will call if it is resistant to Cipro. Candidiasis of vagina 72 281387 B37.3 She had findings c/w candidiasi s per ER notes, she had tx w/ diflucan and Monistat last month and again developed sxs. Advised her to take diflucan now and repeat at end of Cipro tx. f/u with financial aid counselor if not resolved Type 2 braydon betes mellitus 77660523 E11.9 not well controlled , gave her lancet device and glucose log book to keep track of blood sugars and insulin dose. encouraged her to make endocrine appt in the next few months Chronic depression 43203 0009 F34.1 ok to reduce bupropion to 75mg BID, she deferred new Rx for lower dose, will cut current Rx in half Anxiety state 013917847 F41.1 [id number] Rachel King PA-C [facility] [address] [place] [address] 07/08/2018 16:25:13 07/09/2018 12:31:43 Abnormal urine 776231371 R82.90 she has trace LE, send for cx. no abx at this time. Advised her again to get her blood sugars under control, start checking sugars twice a day. Acne 49914551 L70.9 Uncontroll ed type 2 diabetes mellitus 236304590 E11.65 non fasting glucose high today; she admits she ate 4 chocolate eggs and had soda within last hour. Advised her to check glucose BID for the next 5 days; call Thursday with numbers, she says she has supplies; restart Lantus 34 units, cont oral meds. Candidiasis of vagina 72 847095 B37.3 with recently high glucose, she likely has another yeast infection causing genital irritation ; treat again. Hypertensive disorder 38 954652 I10 elevated diastolic, advised her on diet, she has been off her insulin and eating a lot more junk food . Long-term drug therapy 785884035 Z79.899 she will return with labs that her psychiatri st also wanted drawn, knows at least depakote needs to be checked [id number] Rachel King PA-C [facility] [address] [place] [address] 09/30/2018 16:18:19 10/13/2018 10:04:56 Diarrhea 25454604 R19.7 may be related to current anhedonia and not eating well, doesn't appear infectious /septic. Encouraged her to drink plenty of fluids, treat diabetes. Incontinence of feces 72 625459 R15.9 with recent diarrhea. has been on metformin for a while w/o diarrhea. Lesion of skin of face 7803138447 06 L98.9 dry but also appears to have cystic acne. Uncontroll ed type 2 diabetes mellitus 809747156 E11.65 last a1c 8.9 Long-term drug therapy 330840163 Z79.899 she will return with labs that her psychiatri st also wanted drawn, knows at least depakote needs to be checked Fatigue 25195645 R53.83 Chronic depression 41897 0009 F34.1 ok to reduce bupropion to 75mg BID, she deferred new Rx for lower dose, will cut current Rx in half [id number] Shanda Mata, [facility] [address] OB [address] [facility] [address] [place] [address] 01/19/2019 10:00:50 01/20/2019 16:28:52 Gynecologic examination 34371726 Z01.419 1. Counseled regarding prevention of STD's , condom use 2. Pap done and mammogram order given 3. Advised avoidance of tobacco, alcohol, and drugs . 4. Counseled regarding folic acid supplement ation, calcium needs and prevention of osteoporos is . 5. BSE reviewed and recommende d. 6. Follow up in one year or sooner if needed. Venereal d isease screening 096197677 Z11.3 Nuswab done and sent to lab. Counseled on STD prevention and condom use. Counseled on yeast and BV prevention . Will follow up pending lab results. Essential hypertension 89812624 I10 pt walked to the ED by this provider and checked in. pt was offered wheelchair but declined. pt states headache but denies visual changes. pt took medi cab to this appt and will have brother pick her up. pt advised to call new pcp and make appt sooner. will follow up with pcp with ed dane martinez. [id number] CHRISTEN BARONE NP [facility] [address] [place] [address] 02/02/2019 11:11:08 02/04/2019 12:39:55 Chronic kidney disease stage 3 792465218 N18.3 - patient does not remember who diagnosed her with chronic kidney disease- check renal panel and cmp- will refer to nephologis t based on results Uncontroll ed type 2 diabetes mellitus 075875725 E11.65 - A1c in office today 8.3- Patient currently on metformin, was prescribed Lantus however refused to take because she didnt want to stick herself. Asked if there is another pill she can try.- Awaiting renal panel and CMP results before prescribin g a new medication - will refer to endocrinol ogist Essential hypertension 37062183 I10 - b/p in office today 124/92- Doing well on current treatment. - Continue medication as prescribed and diet/exerc ise as previously discussed. - Take occasional BP s, call if consistent ly >140/90. - Discussed reasons for sooner f/u than 3 months. - Patient verbalizes understand ing. Spasm of back muscles 20 3960979 M62.830 - Avoid heavy lifting and over-exert ion. - Begin Ice massage in affected area as instructed for 15-25 minutes at a time, may repeat every 2 hours - Apply warm moist heat to relax muscles after each ice massage as directed. - Do some gentle stretching and continue with normal activities - Sleep on a firm surface and avoid lying on the sofa. Administra tion of influenza vaccine 71258543 Z23 - recommende d annual influenza vaccinatio n Hyperlipidemia 08424487 E78.5 - Educated on risks factors, and healthy lifestyle. - Continue statin as prescribed , possible side-effec ts discussed with patient.- RTC in 3 months Lesion of skin of face 5643125656 06 L98.9 - patient stated she uses for her acne out breaks, stated it seem to be the only thing that works. [id number] ADILENE Craft- [place] [address] [facility] [address] [place] [address] 04/28/2019 13:57:16 04/29/2019 13:42:41 Disorder of menstruation 734827574 N92.6 Pt requests a urine blood test for . Pt educated on reasons cycle may be late or irregular including chronic illnesses like diabetes or htn, stress, weight gain or weight loss, diet changes and menopause. Pt verbalized understand ing and will follow up pending results. Vaginal irritation 55731 6004 N89.8 Nuswab done and sent to lab. Counseled on STD prevention and condom use. Counseled on yeast and BV prevention . Will follow up pending lab results. [id number] CHRISTEN BARONE NP [facility] [address] [place] [address] 05/05/2019 13:06:20 05/06/2019 08:12:40 Uncontrolled type 2 diabetes mellitus 336026647 E11.65 - Patient has appointmen t with endocrinol ogist on- Educated on goal of blood sugars (A1C of 7% and fasting of 80-130) and informatio n below. Postprandi al BG of less than 180. - Encouraged weight loss and diet changes. - Monitor BP with goal of <130/80. - Continue statin and next level due {{3 months 6 months * 1 year}} - Eye exam yearly and dentist regularly. - Next A1C due {{ 1 month 2 months 3 months * 6 months}} - RTC or call if blood sugars not controlled . - Check feet daily and notify PCP immediatel y of abnormalit y. - Take ASA daily. - F/U in {{1 week 2 weeks 1 month 3 months * 6 months }} Essential hypertension 79663571 I10 - b/p in office today 124/92- Doing well on current treatment. - Continue medication as prescribed and diet/exerc ise as previously discussed. - Take occasional BP s, call if consistent ly >140/90. - Discussed reasons for sooner f/u than 3 months. - Patient verbalizes understand ing. Ingrowing toenail 205563 009 L60.0 - Patient with c/o ingrown toenail of the left great toe.- Nail fold tenderness noted, no erythema or edema noted- Soak in a warm salt water bath for 15 minutes a couple of times every day. This soak can help relieve pain and swelling in an ingrown toenail. Dry your foot completely after each soak- dress with anbx ointment, cover with gauze Spasm of back muscles 20 6049193 M62.830 - Avoid heavy lifting and over-exert ion. - Begin Ice massage in affected area as instructed for 15-25 minutes at a time, may repeat every 2 hours - Apply warm moist heat to relax muscles after each ice massage as directed. - Do some gentle stretching and continue with normal activities - Sleep on a firm surface and avoid lying on the sofa. Hyperlipidemia 36450389 E78.5 - Educated on risks factors, and healthy lifestyle. - Continue statin as prescribed , possible side-effec ts discussed with patient.- RTC in 3 months [id number] CHRISTEN BARONE NP [facility] [address] [place] [address] 07/18/2019 14:11:27 07/19/2019 11:44:53 Contact dermatitis caused by urushiol from [place] [employer] tisha 284591652 L25.5 - Use cold, wet cloths to reduce itching. - Keep cool, and stay out of the sun. - Leave the rash open to the air. - Wash all clothing or other things that may have come in contact with the plant oil.- RTC if rash does not clear up after 1 to 2 weeks [id number] CHRISTEN BARONE NP [facility] [address] [place] [address] 08/03/2019 14:28:55 08/04/2019 08:55:25 Pain in right arm 751453631 M79.601 - Patient with c/o right arm soreness. Patient stated it feels more like her arm is bruised. Patient denies any recent injury to arm. Seasonal a llergic rhinitis 461059535 J30.2 - Avoidance/ eliminatio n of offending allergens (e.g., frequent vacuuming, dusting, remove feather pillows from bedroom, change air conditione r filter frequently , removal of house plants, pet control, remove carpet, stuffed animals) - Antihistam ez as needed (e.g., Claritain, Zyrtec, Jessica and Benadryl) Essential hypertension 58743847 I10 - Continue medication as prescribed and diet/exerc ise as previously discussed. - Take occasional BP s, call if consistent ly >140/90. - Discussed reasons for sooner f/u than 3 months. - Patient verbalizes understand ing. [id number] CHRISTEN BARONE NP [facility] [address] [place] [address] 11/08/2019 15:28:26 11/09/2019 05:49:46 Essential hypertension 82033891 I10 - Continue medication as prescribed and diet/exerc ise as previously discussed. - Take occasional BP s, call if consistent ly >140/90. - Discussed reasons for sooner f/u than 3 months. - Patient verbalizes understand ing. Uncontroll ed type 2 diabetes mellitus 709583020 E11.65 - Dr. Kennedy following and managing patients care. Patient stated she has appointmen t with with Dr. Kennedy on 11/24/2019 Mixed anxi ety and depressive disorder 888882607 F41.8 - Dr. Enriquez following and managing patient's care. Patient stated she has an appointmen t scheduled for November [id number] CHRISTEN BARONE NP [facility] [address] [place] [address] 12/26/2019 15:38:35 12/27/2019 05:52:06 Essential hypertension 57518532 I10 - b/p in office today 116/88- Continue medication as prescribed and diet/exerc ise as previously discussed. - Take occasional BP s, call if consistent ly >140/90. - Discussed reasons for sooner f/u than 4 months. - Patient verbalizes understand ing. Rash of groin 1231884380 6479979 R21 erythemic rash noted left panus Administra tion of influenza vaccine 33434232 Z23 - recommende d annual influenza vaccinatio n Uncontroll ed type 2 diabetes mellitus 115592775 E11.65 - Dr Kennedy following and managing patient care, last seen in November. Will request office notes [id number] CHRISTEN BARONE NP [facility] [address] [place] [address] 07/30/2020 08:27:04 07/31/2020 17:15:42 Essential hypertension 58956825 I10 - Last recorded b/p 116/88 on 12/26/2019 - Continue medication as prescribed and diet/exerc ise as previously discussed. - Take occasional BP s, call if consistent ly >140/90. - Discussed reasons for sooner f/u than 4 months. - Patient verbalizes understand ing. Uncontroll ed type 2 diabetes mellitus 397496907 E11.65 - Dr Kennedy following and managing patient care, last seen in November. Will request office notes Chronic ki dney disease stage 3 318074182 N18.30 - Patient will have recent labs faxed over to be reviewed - Patient denies urinary issues, stated she just wanted referral because of Kidney failure. Dwp I will review labs, and send referral if warranted. Patient verbalized understand ing. [id number] Shanda [facility]ata [facility] [address] OB [address] [facility] [address] [place] [address] 10/04/2020 11:54:55 10/05/2020 07:18:56 Gynecologic examination 39747853 Z01.419 1. Counseled regarding prevention of STD's , condom use 2. Pap done and mammogram order given 3. Advised avoidance of tobacco, alcohol, and drugs . 4. Counseled regarding folic acid supplement ation, calcium needs and prevention of osteoporos is . 5. BSE reviewed and recommende d. 6. Follow up in one year or sooner if needed. Bacterial vaginosis 4197 25150 N76.0 Nuswab done and sent to lab. Counseled on STD prevention and condom use. Counseled on yeast and BV prevention . Will follow up pending lab results. [id number] Shanda Mata [facility] [address] OB [address] [facility] [address] [place] [address] 12/20/2020 12:13:52 12/21/2020 14:04:47 Female stress incontinence 89331349 N39.3 Pt educated on causes and s/s of incontinen ce including but not limited to pt weight, pushing/pu lling/lift ing, vaginal deliveries and hysterecto my. Pt to follow up with urology at pt's request for referral. Menopausal syndrome 1237 36644 N95.9 1. Discussed hormonal options and otc herbal options for menopausal management . Discussed risk factors and side effects associated with both options including increase risk of cancer, heart attack and stroke, blood clots. 2. Pt would like to start non hormonal treatment at this time 3. Reviewed risk factors of hrt including increased risk of stroke, heart attack, certain cancers. pt verbalized understand ing. 4. will follow up in 3 months, sooner if needed. [id number] CHRISTEN BARONE NP [place] [address] [facility] [address] [place] [address] [address] 04/30/2021 11:09:42 05/03/2021 18:08:14 Essential hypertension 35490016 I10 - b/p in office today 140/90- Continue medication as prescribed and diet/exerc ise as previously discussed. - Take occasional BP s, call if consistent ly >140/90.- Discussed reasons for sooner f/u than 6 months.- Patient verbalizes understand ing. Uncontroll ed type 2 diabetes mellitus [id number] E11.65 - Dr Kennedy following and managing patient care, last seen in November. Will request office notes Spasm of back muscles 20 7490809 M62.830 - Avoid heavy lifting and over-exert ion. - Begin Ice massage in affected area as instructed for 15-25 minutes at a time, may repeat every 2 hours - Apply warm moist heat to relax muscles after each ice massage as directed. - Do some gentle stretching and continue with normal activities - Sleep on a firm surface and avoid lying on the sofa. Hyperlipidemia 88477221 E78.5 - Educated on risks factors, and healthy lifestyle. - Continue statin as prescribed , possible side-effec ts discussed with patient.- RTC in 3 months Administra tion of influenza vaccine [id number] Z23 - recommende d annual influenza vaccinatio n Chronic depression 53191 0009 F34.1 - CLAUDE Romero following and managing care [id number] ADILENE Craft- [place] [address] OB [address] [facility] [address] [place] [address] 05/07/2021 11:18:55 05/08/2021 06:13:54 Gynecologic examination 12084057 Z01.419 1. Counseled regarding prevention of STD's , condom use 2. Pap done and mammogram order given 3. Advised avoidance of tobacco, alcohol, and drugs . 4. Counseled regarding folic acid supplement ation, calcium needs and prevention of osteoporos is . 5. BSE reviewed and recommende d. 6. Follow up in one year or sooner if needed. Vaginal irritation 16726 6004 N89.8 Nuswab done and sent to lab. Counseled on STD prevention and condom use. Counseled on yeast and BV prevention . Will follow up pending lab results. At [facility] risk of urinary tract infection 437355109 Z91.89 1. Will monitor as dip was negative. 2. Pt instructed to increase fluids, decrease soda, sugary beverages and caffeinate d beverages. 3. To call office if symptoms worsen or do not improve changes. Screening mammography 24 244666 Z12.31 Importance of yearly mammograms and sbe exam discussed with pt. Mammogram order given, pt verbalized understand ing. Candidiasis of vagina 72 353602 B37.3 Meds sent to pharmacy. Counseled on bv/yeast prevention and treatment. Will call office back if treatment does not help with symptoms. Pt verbalized understand ing. [id number] CHRISTEN BARONE NP [facility] [address] [place] [address] 06/12/2021 09:23:50 06/14/2021 15:11:33 Obesity 385923062 E66.9 - Current weight (265.4lbs) - keep food diary and start walking 30 min per day. Patient stated she left her food dairy at home. - Start 50-100 gram low carb diet, and excercise 30 min per day at least 5 day per week- Will monitor weight, b/p, and life style changes in 3 months History of pneumonia 161 129264 Z87.01 - recent hospitaliz ation on 05/27- symptoms resolved per patient [id number] CHRISTEN BARONE NP [facility] [address] [place] [address] 07/30/2021 09:16:13 08/02/2021 13:52:52 Body mass index 30+ - obesity 893636951 Z68.34 - advised low fat, low cholestero l, low carb diet, regular exercise and weight reduction. Essential hypertension 35580499 I10 - b/p in office today 120/82- Continue medication as prescribed and diet/exerc ise as previously discussed. - Take occasional BP s, call if consistent ly >140/90.- Discussed reasons for sooner f/u than 6 months.- Patient verbalizes understand ing. Uncontroll ed type 2 diabetes mellitus 920609229 E11.65 - Dr Kennedy following and managing patient care, last seen in November. Will request office notes Acute bronchitis 1187448 2 J20.9 .- Encouraged pt to increase water intake, use a humidifier /vaporizer , or homeopathi c remedies such as warm tea or honey. Will order ProAir, ATB, and tessalon. Discussed how to take medication s as well as possible side effects. Instructed on the use/SE of the meds as well as OTC remedies for sx management . Discussed signs of respirator y compromise . Advised on reasons to call or follow up over the next few days. Verbalized understand ing. [id number] Itzel Darrick [facility] [address] [place] [address] 12/16/2021 09:06:45 12/17/2021 13:13:53 Essential hypertension 11085547 I10 - b/p in office today 120/82- Continue medication as prescribed and diet/exerc ise as previously discussed. - Take occasional BP s, call if consistent ly >140/90.- Discussed reasons for sooner f/u than 6 months.- Patient verbalizes understand ing. Uncontroll ed type 2 diabetes mellitus 444610689 E11.65 - Dr Kennedy following and managing patient care. Per patient was last seen in October. Will request notes Generalized rash 4599884 06 R21 - Identifica tion and avoidance of the offending irritant(s )- Avoid scratching your irritated skin. Scratching can make the irritation worse or even cause a skin infection that requires antibiotic s. - Clean your skin with mild soap and lukewarm water to remove any irritants. - Stop using any products you think might be causing the problem. [id number] ADILENE Craft-[facility] 14 OB [address] [facility] [address] [place] [address] 12/20/2021 09:31:31 12/23/2021 08:06:24 Pruritus of vagina 81943592 L29.3 Nuswab done and sent to lab. Counseled on STD prevention and condom use. Counseled on yeast and BV prevention . Will follow up pending lab results. [id number] Jovi Mcfarlane MD [facility] [address] [place] [address] 03/19/2022 09:34:14 03/20/2022 10:34:35 Obesity 299782878 E66.9 advised low fat, low cholestero l, low carb diet, regular exercise and weight reduction. Administra tion of diphtheria, pertussis, and tetanus vaccine 547607874 Z23 - recommende d Tdap vaccinatio n Administra tion of influenza vaccine 12840427 Z23 - recommende d annual influenza vaccinatio n Essential hypertension 85122381 I10 - b/p in office today 138/96- Continue medication as prescribed and diet/exerc ise as previously discussed. - Take occasional BP s, call if consistent ly >140/90.- Discussed reasons for sooner f/u than 4 months.- Patient verbalizes understand ing. Uncontroll ed type 2 diabetes mellitus 945725411 E11.65 - Dr Kennedy following and managing patient care. Patient states she has not seen Dr. Kennedy since summer 2021. Patient encouraged to call schedule and keep appointmen t with Dr. Kennedy. Screening for malignant neoplasm of colon 088953882 Z12.11 Gastroesop hageal reflux disease 915747762 K21.9 - discussed the follow non pharmacolo gical ways the patient can help manage her reflux: -Avoid lying flat 3 to 4 hours after eating or drinking. - Avoid tight clothing around the waist. - Decrease dietary fat intake. - Avoid acidic foods (citrus and tomato-bas ed products), alcohol, caffeinate d beverages, chocolate, onions, garlic, salt, and peppermint oil. - Avoid large meals. - Avoid drinking coffee, or carbonated beverages. - Weight loss can help with symptoms, try to diet and exercise.- Stop smoking. Screening mammography 24 104349 Z12.31 - Patient educated on the importance of annual breast cancer screenings with mammograph y.- Mammogram order sent and printed copy provided to pt. [id number] CHRISTEN BARONE NP [facility] [address] [place] [address] 05/29/2022 11:36:03 06/04/2022 10:59:40 Essential hypertension 64854688 I10 - b/p in office today 151/92- Continue medication as prescribed and diet/exerc ise as previously discussed. - Take occasional BP s, call if consistent ly >140/90.- Discussed reasons for sooner f/u than 1 month- Patient verbalizes understand ing. Chronic depression 54293 0009 F34.1 - Patient states she stopped seeing CLAUDE Romero 2 months ago. Bipolar disorder 7741993 4 F31.9 - Discussed with patient I will only fill medication until she can get in to see here at [facility] Uncontroll ed type 2 diabetes mellitus 367543668 E11.65 - Dr Kennedy following and managing patient care. Patient states she has not seen Dr. Kennedy since summer 2021. Patient encouraged to call schedule and keep appointmen t with Dr. Kennedy. Obesity 652679588 E66.9 advised low fat, low cholestero l, low carb diet, regular exercise and weight reduction. [id number] CHRISTEN BARONE NP [facility] [address] [place] [address] 06/30/2022 12:00:51 07/07/2022 17:36:15 Chronic kidney disease stage 3 841445874 N18.30 - Patient will have recent labs faxed over to be reviewed - Patient denies urinary issues, stated she just wanted referral because of Kidney failure. [facility] I will review labs, and send referral if warranted. Patient verbalized understand ing. Uncontroll ed type 2 diabetes mellitus 457088971 E11.65 - Patient states she has not seen Dr. Kennedy since summer 2021. Patient states she no longer wants to see Dr. kennedy would like [facility] referral Essential hypertension 43167168 I10 - b/p in office today 162/94- Continue medication as prescribed and diet/exerc ise as previously discussed. - Take occasional BP s, call if consistent ly >140/90.- Discussed reasons for sooner f/u than 1 month- Patient verbalizes understand ing. Chronic depression 32331 0009 F34.1 - Patient states she stopped seeing CLAUDE Romero 2 months ago. Patient states she is wait list at [facility].- Will continue Vraylar1.5 mg daily until patient is able to get in to see specialist Noncomplia nce with medication regimen 663304019 Z91.A4 - Patient not taking medication as prescribed . Patient does not keep specialist appointmen ts. [id number] CHRISTEN BARONE NP [facility] [address] [place] [address] 07/17/2022 11:08:41 07/18/2022 09:34:16 Essential hypertension 21545601 I10 - b/p in office today 145/103. Patient states she has not taken her b/p medication .- Continue medication as prescribed and diet/exerc ise as previously discussed. - Take occasional BP s, call if consistent ly >140/90.- Discussed reasons for sooner f/u than 1 month- Patient verbalizes understand ing. Renewal of prescription 356921780 Z76.0 Obesity 945809098 E66.9 advised low fat, low cholestero l, low carb diet, regular exercise and weight reduction. [id number] CHRISTEN BARONE NP [facility] [address] [place] [address] 07/31/2022 11:11:02 08/13/2022 15:45:30 Essential hypertension 16538164 I10 - b/p in office today 130/91.- Continue medication as prescribed and diet/exerc ise as previously discussed. - Take occasional BP s, call if consistent ly >140/90.- Discussed reasons for sooner f/u than 1 month- Patient verbalizes understand ing. Left side sciatica 09820 72612 02842 M54.32 Obesity 588611770 E66.9 advised low fat, low cholestero l, low carb diet, regular exercise and weight reduction. [id number] CHRISTEN BARONE NP [facility] [address] [place] [address] 12/03/2022 11:17:07 12/04/2022 10:33:54 Essential hypertension 61863129 I10 - b/p in office today 146/94- Continue medication as prescribed and diet/exerc ise as previously discussed. - Take occasional BP s, call if consistent ly >140/90.- Discussed reasons for sooner f/u than 2 weeks- Patient verbalizes understand ing. Uncontroll ed type 2 diabetes mellitus 164053319 E11.65 - CLAUDE Bush following and managing care Fatigue 97526897 R53.83 - try to get regular exercise. But don't overdo it. Go back and forth between rest and exercise. - Get plenty of rest. - Eat a healthy diet. Do not skip meals, especially breakfast. - Reduce your use of caffeine, tobacco, and alcohol. Administra tion of influenza vaccine 43943977 Z23 - recommende d annual influenza vaccinatio n Screening for malignant neoplasm of colon 603110613 Z12.11 Obesity 359779362 E66.9 advised low fat, low cholestero l, low carb diet, regular exercise and weight reduction. [id number] THEO Craft 14 OB [address] [facility] [place] [address] 12/10/2022 11:58:30 12/11/2022 08:22:29 Vaginal discharge 370703573 N89.8 Nuswab done and sent to lab. Counseled on STD prevention and condom use. Counseled on yeast and BV prevention . Will follow up pending lab results. At [facility] risk of urinary tract infection 725837324 Z91.89 1. Will monitor as dip was negative. 2. Pt instructed to increase fluids, decrease soda, sugary beverages and caffeinate d beverages. 3. To call office if symptoms worsen or do not improve changes. [id number] THEO Craft 14 OB [address] [facility] [place] [address] 02/09/2023 10:49:05 02/10/2023 08:49:41 Gynecologic examination 83663741 Z01.419 1. Counseled regarding prevention of STD's , condom use 2. Pap done and mammogram order given 3. Advised avoidance of tobacco, alcohol, and drugs . 4. Counseled regarding folic acid supplement ation, calcium needs and prevention of osteoporos is . 5. BSE reviewed and recommende d. 6. Follow up in one year or sooner if needed. Vaginal discharge 761030 006 N89.8 Nuswab done and sent to lab. Counseled on STD prevention and condom use. Counseled on yeast and BV prevention . Will follow up pending lab results. Screening mammography 24 358655 Z12.31 Importance of yearly mammograms and sbe exam discussed with pt. Mammogram order given, pt verbalized understand ing. [id number] THEO Craft 14 OB [address] [facility] [place] [address] 03/17/2023 11:47:57 03/18/2023 09:13:24 History of human papilloma virus infection 6117586026 48613 Z86.19 1. Counseled regarding prevention of STD's , condom use and prevention . 2. Counseled regarding contracept marisol options, risk factors and side effects. 3. Advised avoidance of tobacco, alcohol, and drugs . 4. Counseled regarding folic acid supplement ation, calcium needs and prevention of osteoporos is . 5. BSE reviewed and recommende d. 6. Follow up in one year or sooner if needed. Obesity 968694750 E66.9 Discussed diet and weight loss. Discussed making healthier food choices and increasing exercise. Discussed going to a hot walker. Skin tag in vagina 07466 5000 D28.1 Pt instructed on how to use cream. Will call if desired results are not seen. pt v/u. [id number] CLAUDE LOWE [facility] [address] [place] [phone] 04/29/2023 10:49:00 05/04/2023 15:31:51 Female stress incontinence 73779811 N39.3 Uncontroll ed type 2 diabetes mellitus 791011788 E11.65 - CLAUDE Bush following and managing care [id number] CLAUDE LOWE [facility] [address] [place] [phone] 09/30/2023 12:00:19 10/12/2023 08:35:42 Essential hypertension 59965202 I10 - b/p in office today 133/84- Continue medication as prescribed and diet/exerc ise as previously discussed. - Take occasional BP s, call if consistent ly >140/90.- Discussed reasons for sooner f/u than 3 months- Patient verbalizes understand ing. Uncontroll ed type 2 diabetes mellitus 317209260 E11.65 - CLAUDE Bush following and managing care. Patient states she has appointmen t with CLAUDE Bush on 10/04.24 Overweight 289811079 E66 .3 advised low fat, low cholestero l, low carb diet, regular exercise and weight reduction. HIV screening 541016129 Z11.4 Vitamin D deficiency 347 88387 E55.9 Anemia 794764865 D64.9 Screening mammography 24 366709 Z12.31 - Patient educated on the importance of annual breast cancer screenings with mammograph y.- Mammogram order sent and printed copy provided to pt. [id number] CLAUDE LOWE [facility] [address] [place] [address] 10/22/2023 13:40:29 11/05/2023 11:48:25 Pain of right shoulder joint 1406975120 9998796 M25.511 Counseled on shoulder pain, testing, medication s. Alternate Ice/heat to area, Uncontroll ed type 2 diabetes mellitus 231810481 E11.65 - CLAUDE Bush following and managing care [id number] ADILENE Craft-[facility] 14 OB 4 [facility] [address] [address] 10/26/2023 11:50:48 10/29/2023 18:18:43 Pruritus of vagina 22687846 L29.3 Nuswab done and sent to lab. Counseled on STD prevention and condom use. Counseled on yeast and BV prevention . Will follow up pending lab results. Genital warts 889446975 A63.0 [id number] CHRISTEN BARONE NP [facility] [address] [place] [address] 11/09/2023 10:46:32 11/17/2023 15:26:06 Essential hypertension 53649737 I10 - b/p in office today 159/103, repeat b/p 167/108- Lisinopril increased to 40 mg daily- Continue medication as prescribed and diet/exerc ise as previously discussed. - Take occasional BP s, call if consistent ly >140/90.- Discussed reasons for sooner f/u than 4 weeks- Patient verbalizes understand ing. Pruritic d isorder of skin 2786097640 L29.9 Chronic, generalize d itching reported for 6 months. Atypical chest pain 1025 19256 R07.89 - Stable Muscle tension 544317594 R29.898 Recommende d applying heat or cold packs to the shoulders based on what the patient finds most soothing.R ecommended stress reduction techniques or relaxation exercises. Consider relaxation techniques or stress management strategies if stress is contributi ng to muscle tension. [id number] CHRISTEN BARONE NP [facility] [address] [place] [address] 01/28/2024 14:51:55 02/16/2024 16:52:51 Essential hypertension 72758358 I10 - b/p in office today 157/110, has not taken b/p medication - Continue medication as prescribed and diet/exerc ise as previously discussed. - Take occasional BP s, call if consistent ly >140/90.- Discussed reasons for sooner f/u than 4 weeks- Patient verbalizes understand ing. Uncontroll ed type 2 diabetes mellitus 868149741 E11.65 - CLAUDE Bush following and managing care- A1c 12.7 will send results to endocrinol ogist- Patient advised to call and schedule appointmen t with endocrinol ogist Pruritic d isorder of skin 9919238872 L29.9 Chronic, generalize d itching reported for 6 months. Noncomplia nce with medication regimen 290868323 Z91.148 Patient reports voluntaril y stopping medication s.Explored barriers to adherence, such as cost, side effects, or lack of perceived need.Invol ve the daughter in the discussion to reinforce the importance of adherence and to provide support. [id number] ADILENE ETIENNE-[facility] [address] [place] [address] 04/08/2024 14:27:53 05/16/2024 15:07:28 Urinary incontinence 550716220 R32 -Patient requesting refills on incontinen ce supplies.- Patient to f/u with PCP Onychomyco sis of toenails 090922381 B35.1 -noted to bilateral lower extremity first digits-CARPENTRY SUPERVISOR instructed patient to try Saeid's applicatio n daily and 15 minute vinegar soaks-F/u with PCP if symptoms do not improve. Essential hypertension 95516099 I10 -Elevated- BP today in clinic: 148/90(Goa l <130/80)-C ontinue current therapy: lisinopril 40mg daily-Tren d renal function-R ecommended DASH diet-Discu ssed importance of regular exercise and/or physical activity inthe control of blood pressure.- Discussed low sodium diet w/ <2 g daily, avoidance of caffeine, appropriat e sleep hygiene and quality with >6 hours of uninterrup otoniel sleep.-Pat ient to f/u with PCP for further management -Patient to call with BP <110/70mmH g or >140/90mmH g Vitamin D deficiency 347 32946 E55.9 -Recommend taking vitamin D supplement cholecalci ferol 1000 internatio nal units by mouth daily-Mitchel mmended foods high in vitamin D including: Milk, fortified orange juice, yogurt, salmon, canned tuna, cod liver oil and cereals with vitamin D added-[facility] vitamin d levels [id number] ADILENE ETIENNE-JEANETTE [facility] [address] [place] [address] 04/11/2024 12:09:01 05/16/2024 15:18:52 Urinary symptoms 637165587 R39.9 -Patient reports history of frequent UTIs-Patie nt reports symptoms are similar to previous UTI illnesses. -UA negative, but due to patient's symptoms and history, plan to treat with macrobid BID for 5 days. CARPENTRY SUPERVISOR advised patient to consume OTC probiotic or yogurt while on antibiotic therapy.-U rine culture ordered-Enrique rubi to follow up with PCP-ER benigno s advised-Ca re instructio ns provided. Essential hypertension 23124867 I10 -Elevated- BP today in clinic: 141/89(Goa l <130/80)-C ontinue current therapy: lisinopril 40mg daily, metoprolol 100mg BID-Trend renal function-R ecommended DASH diet-Discu ssed importance of regular exercise and/or physical activity inthe control of blood pressure.- Discussed low sodium diet w/ <2 g daily, avoidance of caffeine, appropriat e sleep hygiene and quality with >6 hours of uninterrup otoniel sleep.-Pat ient to f/u with PCP for further management -Patient to call with BP <110/70mmH g or >140/90mmH g [id number] CHRISTEN BARONE NP [facility] [address] [place] [address] 05/11/2024 10:44:39 05/16/2024 13:44:08 Essential hypertension 47745718 I10 - b/p in office today 171/115, Patient states she has not taken b/p medication in a couple days- Continue medication as prescribed and diet/exerc ise as previously discussed. - Take occasional BP s, call if consistent ly >140/90.- Discussed reasons for sooner f/u than 4 weeks- Patient verbalizes understand ing. Uncontroll ed type 2 diabetes mellitus 268085281 E11.65 - CLAUDE Bush following and managing care- A1c 12.7 will send results to endocrinol ogist- Patient advised to call and schedule appointmen t with endocrinol ogist Gastroesop hageal reflux disease 901298172 K21.9 - discussed the follow non pharmacolo gical ways the patient can help manage her reflux: -Avoid lying flat 3 to 4 hours after eating or drinking. - Avoid tight clothing around the waist. - Decrease dietary fat intake. - Avoid acidic foods (citrus and tomato-bas ed products), alcohol, caffeinate d beverages, chocolate, onions, garlic, salt, and peppermint oil. - Avoid large meals. - Avoid drinking coffee, or carbonated beverages. - Weight loss can help with symptoms, try to diet and exercise.- Stop smoking. Noncomplia nce with medication regimen 504074761 Z91.148 Patient reports voluntaril y stopping medication s.Explored barriers to adherence, such as cost, side effects, or lack of perceived need.Invol ve the daughter in the discussion to reinforce the importance of adherence and to provide support. [id number] CHRISTEN BARONE NP [facility] [address] [place] [address] 05/18/2024 10:42:45 05/19/2024 10:08:22 Essential hypertension 43134059 I10 - b/p in office today 154/95- Continue medication as prescribed and diet/exerc ise as previously discussed. - Take occasional BP s, call if consistent ly >140/90.- Discussed reasons for sooner f/u than 4 weeks- Patient verbalizes understand ing. Female str ess incontinence 23704074 N39.3 Continued medical necessity for incontinen ce supplies confirmed. Uncontroll ed type 2 diabetes mellitus 441981705 E11.65 - CLAUDE Bush following and managing care- A1c 12.7 will send results to endocrinol ogist- Patient states she missed appointmen t with endocrinol ogist last week, states she has not reschedule d Noncomplia nce with medication regimen 439951137 Z91.148 Patient reports voluntaril y stopping medication s.Explored barriers to adherence, such as cost, side effects, or lack of perceived need.Invol ve the daughter in the discussion to reinforce the importance of adherence and to provide support. Pain of ri ght shoulder joint [id number] 3829664 M25.511 Counseled on shoulder pain, testing, medication s. Alternate Ice/heat to area, Intertrigo 42466847 L30. 4 Keep area clean and dry; recommend absorbent powder or barrier cream.Enco urage loose-fitt ing clothing to reduce friction. Noncomplia nce with treatment 8127843 Z91.199 Missed endocrinol valentina villagomez of diabetes management dwp. [id number] CHRISTEN BARONE NP [facility] [address] [place] [address] 06/10/2024 10:41:24 06/28/2024 14:17:17 Positive screening for depression on PHQ-9 (Patient Health Questionnaire 9) 3295162044 27726 Z13.31 PHq=17/27D tl [place] following and managing care Overweight 666301004 E66 .3 BMI=28.9ad vised low fat, low cholestero l, low carb diet, regular exercise and weight reduction. History of chest pain 16 49091856 8966733 Z87.898 Goals Section Goal Description Progress Status Start Date LastModified by Organization Details LastModified Time Activities of Daily Living Performs activities of daily living independently or with minimal assistance NoCsaul active 2023 Zoey Calvo LPN Information not available 05/06/2023 19:59:33 Exercise Regularly Follows a regular exercise regimen or instructed exercise plan as per care team recommendation (s) NoCsaul active 2023 Zoey Calvo LPN Information not available 05/06/2023 19:59:33 Recreation al Activities Participates in recreational activities NoChange active 2023 Zoey Calvo LPN Information not available 05/06/2023 19:59:33 Blood Pressure Maintains blood pressure goal as defined by care team NoCsaul active 2023 Zoey Calvo LPN Information not available 05/06/2023 19:59:33 Effective Coping Manages life events with effective coping methods NoCsaul active 2023 Zoey Calvo LPN Information not available 05/06/2023 19:59:33 Hemoglobin A1C Lowers or maintains hemoglobin A1C (HbA1c) as per care team recommendation (s) [TARGET: less than or equal to 7%] NoCsaul active 2023 Zoey Calvo LPN Information not available 05/06/2023 19:59:33 Medication Regimen Follows medication regimen as per care team recommendation (s[facility] Zoey Calvo LPN Information not available 05/06/2023 19:59:33 Weight Loss Decreases body weight as per care team recommendation (s) Mireya active 2023 Zoey Calvo LPN Information not available 05/06/2023 19:59:33 Follow-up Appointmen t(s) Attends referral and/or follow-up appointment(s) as per care team recommendation (s) [facility] Zoey Calvo LPN Information not available 05/06/2023 19:59:33 Healthy Weight Maintain a healthy body weight as recommended by your care team [facility] 2023 Zoey Calvo LPN Information not available 05/06/2023 19:59:33 Diet Adherence Follows prescribed or recommended diet [facility] active 2023 Zoey Calvo LPN Information not available 05/06/2023 19:59:33 Blood Glucose Maintains blood glucose within target range [facility] active 2023 Zoey Calvo LPN Information not available 05/06/2023 19:59:33 Lipid Levels Maintains normal lipid levels as defined by care team [facility] 20[facility] Zoey Calvo LPN Information not available 05/06/2023 19:59:33 Smoking Cessation Quits smoking [facility] active 2023 Zoey Calvo LPN Information not available 05/06/2023 19:59:33 Health Concerns Section Related Observation LastModified by Organization Detai ls LastModified Time None Recorded Concern Status LastModified by Organization Details LastModified Time None Recorded Advance Directives Directive None Recorded Payers Encounter Date Sequence Insurance Name Policy Number Policy Salazar Covered Member ID Salazar Member ID Guarantor Name 04/11/2024 2 [place] [employer] [place] [employer] Trudy Rocha [id number] Trudy Nicci Aj 04/11/2024 1 [place] Trudy Rocha [id number] Trudy Grajeda Aj 05/11/2024 2 [place] Trudy Grajeda Aj [id number] Trudy Rocha 05/11/2024 1 [place]y Fraga Aj [id number] Trudy Grajeda Aj 05/18/2024 1 [place] Fraga Aj [id number] Trudy Grajeda Aj 05/18/2024 2 [place] MEDICARE REPLACEMENT PRIMARY) Trudy Grajeda Aj [id number] Trudy Grajeda Aj 06/10/2024 1 [place]udy R Aj [id number] Trudy Grajeda Aj 06/10/2024 2 [place]PLACEMENT [place] Trudy Grajeda Aj [id number] Trudy Grajeda Aj Notes Date Note Type Note Provider Name and Address Organization Details Recorded Time 5 text/html Patient presents to the clinic with acute complaint of lower abdominal pain. Patient is established with Christen ARCE for primary care. Patient's past medical history includes: anxiety, depression, CKD, hypertension insomnia, GERD, and DMII. Abdominal Pain-Patient reports last night she developed lower abdominal pain. She has since had some stabbing pain to her back and pain with urination. Patient reports abdominal pain is extending to lower abdomen and side. Patient also reports some nausea, but no vomiting. Denies experiencing symptoms of diarrhea or fevers.-Denies history of gallstones.-Denies any known sick contacts. THEO ETIENNE Attn: Accounting,[address] [place], [address], [facility] 05/15/2024 12:11:02 5 text/html Diabetes F/UReported bypatient.Labs:last A1C result: 12.7 (01/2024) Context:home blood sugar range high;not seeing eye doctor yearly;not checking feet regularly;missing doses of medicationHypertension F/UReported bypatient.Associated Symptoms:no dizziness; no lightheadedness; no chest pain; no shortness of breath; no palpitations; no edema Medications:not taking medications as directedReflux/GERDReported bypatient.Symptomsheartburn Severity:worsening Duration:present 1-4 years Context:non-smoker;related to any meal Aggravating Factors:worsened by food Associated Symptoms:heartburn Ms. Rocha presents in office today for follow up appointment. CHRISTEN BARONE NP Attn: Accounting,[address] [facility], [place], [address], [facility] 05/15/2024 17:16:43 5 text/html Diabetes F/UReported bypatient.Labs:last A1C result: 12.5 (05/11/2024) Context:home blood sugar range high;missing doses of medicationHypertension F/UReported bypatient.Associated Symptoms:no dizziness; no lightheadedness; no chest pain; no shortness of breath; no palpitations Medications:not taking medications as directedRash/Skin LesionReported bypatient.Location:abdomen; groin Quality:not painful; not bleeding;itchy;red Severity:mild Duration:has noted for 2-3 weeks Onset/Timing:recurring Context:no new detergents or skin products; no one else with similar rash; not scratching Associated Symptoms:no fever Ms. Rocha presents for a follow-up appointment and reports a mild, odorous rash located between the abdominal fold and groin area. The rash has been present for two weeks and is associated with mild itching and discomfort. The patient has a history of similar rashes in the past. Notably, the patient did not keep their appointment with the technical rep last week. Recent A1c is 12.5, indicating poorly controlled diabetes, which may contribute to recurrent intertrigo. CHRISTEN BARONE NP Attn: Accounting,[address] [facility], [place], [address], [facility] 05/18/2024 14:26:19 5 text/html Ms. Rocha presents for follow-up after ER visit on 06/03 for chest pain. In the ER, diagnosed with nonspecific chest pain, sinus tachycardia, and abnormal ECG with nonspecific ST changes. Compared to prior ECG from 04/14/24. CHRISTEN BARONE NP Attn: Accounting,[address] [facility], [place], [address], [facility] 06/27/2024 09:23:22 OBGyn Episode No OBEpisode recorded.
--- OUTSIDE RECORDS SUMMARY | 2024-06-30 11:13 | XMS_ITS | Clinical Summary ---
Author Organization [facility] Address [address] [place] [address] Care Team Providers Care Metal Technician Name Role Phone Unavailable Primary Care Provider Unavailabl e Source Comments [facility],non-owned Affiliates and Associated Physician Practices is amultiple site organization consisting of ambulatory clinics and hospital sitesin [place], [place], [place] and [place]. This disclosure is being madepursuant to the Care Everywhere program and may not contain all information available regarding this patient. Last updated 17.[facility] Allergies No known active allergies Medications * Be aware that medications may not be up to date on this document. Alwaysverify current medications with the patient. phenazopyridine (PYRIDIUM) 200 MG tablet Take 1 Tab by mouth 3 times daily as needed. 6 Tab 0 06/06/2012 Active ciprofloxacin (CIPRO) 500 MG tablet Take 1 Tab by mouth 2 times daily. 20 Tab 0 06/06/2012 Active ondansetron, disintegrating, (ZOFRAN ODT) 8 MG tablet Take 1 Tab by mouth every 4 hours as needed for Nausea/Vomiti ng. Allow tablet to dissolve on the tongue 20 Tab 0 06/06/2012 Active Social History Tobacco Use Types Packs/Day Years Used Date Smoking Tobacco: Never Assessed Comments Unknown Sex and Gender Information Value Date Recorded Sex Assigned at Not on file Legal Sex Female 3:16 PM CDT Gender Identity Not on file Sexual Orientation Not on file Last Filed Vital Signs Vital Sign Reading Time Taken Comments Blood Pressure 144/82 04/03/2013 3:26 AM [employer] Pulse 84 04/03/2013 3:26 AM [employer] Temperature 36.6 C (97.9 F) 04/02/2013 11:52 PM [employer] Respiratory Rate 16 04/03/2013 3:26 AM [employer] Oxygen Saturation 99% 04/03/2013 3:26 AM [employer] Inhaled Oxygen Concentration - - Weight 84.4 kg (186 lb) 04/02/2013 11:52 PM [employer] Height 162.6 cm (5' 4 ) 04/02/2013 11:52 PM [employer] COUN[employer] Body Mass Index 31.93 04/02/2013 11:52 PM [employer] COUN[employer]OR Plan of Treatment Health Maintenance Due Date Last Done Comments COLOGUARD (AGES 45-75) - COL ON CA SCREENING 1970 COLON MONITORING 1970 COLONOSCOPY - COLON CA SCREENING 1970 CT COLONOGRAPHY - COLON CA SCREENING 1970 Colorectal Cancer Screening 1970 FIT - COLON CA SCREENING 1970 FLEX SIG - COLON CA SCREENING 1970 LIPID TESTING 1970 MAMMOGRAM 1970 MEDICARE AWV 12 MONTHS 1970 PAP SMEAR 1970 HIV SCREENING 1985 HEPATITIS C SCREENING 08/17/1988 DTAP/TDAP/TD VACCINES (1 - Tdap) 1989 HEPATITIS B VACCINE (1 of 3 - 19+ 3-dose series) 1989 PNEUMOCOCCAL VACCINE 50+ (1 of 1 - PCV) 2020 ZOSTER VACCINE (1 of 2) 2020 COVID-19 VACCINE ( - 2023-2 5 season) 2023 DEPRESSION SCREENING 03/16/2024 INFLUENZA VACCINE (Season Ended) 2024 HIB VACCINE Aged Out No longer eligi ble based on patient's age to complete this topic HPV VACCINE Aged Out No longer eligi ble based on patient's age to complete this topic MENINGOCOCCAL (Group B) VACC INE SHARED DECISION-MAKING Aged Out No longer eligibl e based on patient's age to complete this topic MENINGOCOCCAL GROUPS A/C/Y/W VACCINE Aged Out No longer eligible b ased on patient's age to complete this topic PNEUMOCOCCAL VACCINE Aged Out No long er eligible based on patient's age to complete this topic Insurance MEDICAID - [facility] MEDICARE MEDICAID - OUT OF [facility]
--- OUTSIDE RECORDS SUMMARY | 2024-06-30 11:13 | XMS_ITS | Clinical Summary ---
Author Organization [facility] Address [address] [place] [address] Phone Care Team Providers Care Anatomic Pathology Manager Name Role Phone Christen Enriquez APRN, SANA Primary Care Provider Allergies Active Allergy Reactions Criticality Noted Date Comments Atorvastatin Other (see Comments) 10/13/2023 Liver issues Ketorolac Tromethamine Other (see Comments) kidney problems Medications metoprolol Succinate (TOPROL-XL) 100 MG TABLET SR 24 HR Take 100 mg by mouth 2 times daily. Active metFORMIN (GLUCOPHAGE-XR) 500 MG TABLET SR 24 HR Take 500 mg by mouth 2 times daily. This RX is for Metformin SR. Active Aspirin 81 MG Tablet Take 81 mg by mouth daily. Active venlafaxine (EFFEXOR-XR) 150 MG CAPSULE SR 24 HRIndications:M ajor Depressive Disorder Take 150 mg by mouth daily. Indications: Major Depressive Disorder Active Lisinopril 30 MG Tablet Take by mouth every morning. Active divalproex (Depakote) 250 MG Tablet Delayed ResponseIndicat ions:MOOD Take 250 mg by mouth nightly. Indications: MOOD Active busPIRone (BUSPAR) 15 MG Tablet Take 15 mg by mouth 3 times daily. Active Insulin Degludec-Liragl utide (XULTOPHY SC) 25 Units by Subcutaneous route every morning. Active FAMOTIDINE PO Take by mouth daily. Active benztropine (COGENTIN) 1 MG Tablet Take by mouth daily. Active empagliflozin (Jardiance) 25 MG Tablet Take 25 mg by mouth daily. Active Cariprazine HCl (Vraylar) 1.5 MG CapsuleIndicati ons:Bipolar Take by mouth daily. Indications: Bipolar Active ondansetron (ZOFRAN-ODT) 4 MG TABLET DISPERSIBLE Take 1 Tablet by mouth every 6 hours as needed for Nausea - 1st line. 5 Tablet 4 Active ondansetron (ZOFRAN-ODT) 4 MG TABLET DISPERSIBLE Take 1 Tablet by mouth every 6 hours as needed for Nausea - 1st line. 10 Tablet 5 Active traMADol (ULTRAM) 50 MG TabletIndicatio ns:Left groin pain Take 1 Tablet by mouth every 6 hours as needed for Mild or more severe pain. 20 Tablet 5 Active traZODone (DESYREL) 100 MG Tablet Take 1 Tablet by mouth nightly. 30 Tablet 5 Active Active Problems Problem Noted Date Diagnosed Date Screening for colorectal cancer 11/13/2023 Gastroenteritis and colitis, viral 05/02/2016 HTN (hypertension) 05/02/2016 HLD (hyperlipidemia) 05/02/2016 DM (diabetes mellitus) 05/02/2016 CKD (chronic kidney disease) 05/02/2016 Depression 05/02/2016 VISHAL (acute kidney injury) 05/02/2016 Encounters Date Type Department Care Team Description 06/03/2024 3:00 AM CDT - 06/03/2024 6:07 AM CDT Emergency [facility] Emergency [address] [place] [address] Dhaval Irwin MD Nonspecific chest pain Discharge Disposition: Discharged to home or Selfcare 06/03/2024 Travel 05/25/2024 10:01 PM CDT - 05/26/2024 12:27 AM CDT Emergency [facility] Emergency [address] [place] [address] Dhaval Irwin MD Left groin pain Discharge Disposition: Discharged to home or Selfcare 05/25/2024 Travel 04/14/2024 1:09 AM [facility] - 04/14/2024 4:17 AM [facility] Emergency [facility] Emergency [address] [place] [address] Dhvaal Irwin MD Lower abdominal pain Discharge Disposition: Discharged to home or Selfcare 04/14/2024 Travel from Last 3 Months Family History Medical History Relation Name Comments Diabetes Father Heart Attack Father Heart Disease Father High Cholesterol Father Hypertension Father Hypertension Mother Renal Failure Mother Stroke Mother TIA Relation Name Status Comments Father Mother Social History Tobacco Use Types Packs/Day Years Used Date Smoking Tobacco: Never Smokeless Tobacco: Never Tobacco Cessation:Counseling Given: Not Answered Alcohol Use Standard Drinks/Week Comments Yes 0 (1 standard drink = 0.6 oz pur e alcohol) occasional Comments No Sex and Gender Information Value Date Recorded Sex Assigned at Female 06/03/2024 3:14 AM CDT Legal Sex Female 11:28 PM CDT Gender Identity Female 06/03/2024 3:14 AM CDT Sexual Orientation Not on file Last Filed Vital Signs Vital Sign Reading Time Taken Comments Blood Pressure 147/86 06/03/2024 6:06 AM CDT Pulse 109 06/03/2024 6:06 AM CDT Temperature 36.9 C (98.4 F) 06/03/2024 3:01 AM CDT Respiratory Rate 12 06/03/2024 6:06 AM CDT Oxygen Saturation 100% 06/03/2024 6:06 AM CDT Inhaled Oxygen Concentration - - Weight 76.2 kg (168 lb) 06/03/2024 3:01 AM CDT Height 162.6 cm (5' 4 ) 06/03/2024 3:01 AM CDT Body Mass Index 28.84 06/03/2024 3:01 AM CDT Plan of Treatment Health Maintenance Due Date Last Done Comments Diabetes: Eye Exam 1970 Diabetes: Foot Exam 1970 Hepatitis C Virus (HCV) Screening 1970 Mammogram 1970 Hepatitis B Immunization (1 of 3 - 19+ 3-dose series) 1989 Pap Smear 08/23/1991 Cervical Cancer Screening (CCS) 2000 HPV/Cotest 2000 Pneumococcal Immunization (50+ years) (2 of 2 - PCV) 02/12/2012 02/11/2011 Cologuard 2020 Immunochemical Fecal Occult Blood 2020 Zoster Immunization (1 of 2) 2020 Influenza Immunization (#1) 2023 09/2 , 03/19/2022, 04/30/2021, Additional history exists SARS-COV-2 Immunization ( season) 2023 Diabetes: Hemoglobin A1c 11/08/2024 025, 10/05/2023, 12/31/2022, Additional history exists Diabetes: Nephropathy Screening 06/03/2025 06/03/2024, 05/25/2024, 04/14/2024, Additional history exists Colonoscopy 11/12/2033 11/13/2023 Colorectal Cancer Screening 11/12/2033 Respiratory Syncytial Virus (RSV) Immunization (Adult) (1 - 1-dose 75+ series) 2045 11/13/2023 Pneumococcal Immunization Combined Discontinued 02/11/2011 DTaP/Tdap/Td Immunization Discontinued 03/19/2022, 03/2009 TdaP Immunization Completed 03/19/2022, 02/13/2010 Meningococcal Immunization (ACWY) Aged Out No longer eligible based on patient's age to complete this topic Rotavirus Immunization Aged Out No lo nger eligible based on patient's age to complete this topic Procedures Procedure Name Priority Date/Time Associated Diagnosis Comments XR CHEST SINGLE VIEW PORTABLE STAT 06/03/2024 3:51 AM CDT D-DIMER STAT 06/03/2024 3:26 AM CDT B-TYPE NATRIURETIC PEPTIDE (BNP) STAT 06/03/2024 3:26 AM CDT URINE DRUG SCREEN STAT 06/03/2024 3:2 1 AM CDT URINALYSIS REFLEX IF INDICATED BY ABNORMAL RESULTS STAT 06/03/2024 3:21 AM CDT CBC WITH AUTO DIFFERENTIAL STAT 06/03/2024 3:11 AM CDT MAGNESIUM (MG) STAT 06/03/2024 3:11 AM CDT THYROXINE (T4) FREE STAT 06/03/2024 3:11 AM CDT THYROID STIMULATING HORMONE (TSH) STAT 06/03/2024 3:11 AM CDT TROPONIN I, HIGH SENSITIVITY (HSTRP) STAT 06/03/2024 3:11 AM CDT CMP (COMPREHENSIVE METABOLIC PANEL) STAT 06/03/2024 3:11 AM CDT COMPLETE BLOOD COUNT (CBC) WITH DIFF STAT 06/03/2024 3:11 AM CDT EKG 12 LEAD STAT 06/03/2024 2:59 AM CDT EKG SCAN 06/03/2024 12:[address] ABDOMEN PELVIS W/ CONTRAST Stat with Interpretation 05/25/2024 11:22 PM CDT URINALYSIS REFLEX IF INDICATED BY ABNORMAL RESULTS STAT 05/25/2024 10:08 PM CDT CBC WITH AUTO DIFFERENTIAL STAT 05/25/2024 9:22 PM CDT COMPLETE BLOOD COUNT (CBC) WITH DIFF STAT 05/25/2024 9:22 PM CDT CMP (COMPREHENSIVE METABOLIC PANEL) STAT 05/25/2024 9:22 PM CDT EKG 12 LEAD STAT 04/14/2024 2:52 AM [facility] [employer] CT ABDOMEN PELVIS W/ CONTRAST Stat with Interpretation 04/14/2024 2:49 AM [facility] [facility] URINALYSIS REFLEX IF INDICATED BY ABNORMAL RESULTS STAT 04/14/2024 1:14 AM [facility] [employer] THYROID SCREEN WITH REFLEX STAT 04/14/2024 12:51 AM [facility] CBC WITH AUTO DIFFERENTIAL STAT 04/14/2024 12:51 AM [facility] THYROXINE (T4) FREE STAT 04/14/2024 12:51 AM [facility] THYROID SCREEN WITH REFLEX STAT 04/14/2024 12:51 AM [facility] LIPASE STAT 04/14/2024 12:51 AM [facility] [facility] CMP (COMPREHENSIVE METABOLIC PANEL) STAT 04/14/2024 12:51 AM [facility] [facility] COMPLETE BLOOD COUNT (CBC) WITH DIFF STAT 04/14/2024 12:51 AM [facility] [facility] [employer] EKG SCAN 04/14/2024 12:00 AM [facility] [facility] HEMOGLOBIN A1C W/ ESTIMATED GLUCOSE Routine 10/15/2015 3:31 PM CDT Type II or unspecified type diabetes mellitus without mention of complication, uncontrolled from Last 3 Months or Most Recently Relevant to Health Maintenance Results * XR CHEST SINGLE VIEW PORTABLE (06/03/2024 3:51 AM CDT) Anatomical Region Laterality Modality Chest N/A Computed Radiogr aphy 06/03/2024 4:15 AM CDT Impressions 06/03/2024 4:18 AM CDT IMPRESSION: No acute abnormality identified. Narrative 06/03/2024 4:18 AM CDT EXAM DESCRIPTION: XR CHEST SINGLE VIEW PORTABLE REASON FOR STUDY: intermittent chest pain for 1 year. tachycardic today. hx: htn, dm TECHNIQUE: Portable upright AP view of the chest. COMPARISON: 10/13/2023 FINDINGS: LUNGS AND PLEURA: No focal opacity, large effusion, or pneumothorax identified. HEART/MEDIASTINUM: Trachea midline. Cardiac silhouette normal in size. Mediastinal contours appear normal. BONES: Unremarkable. CHEST WALL: Unremarkable. UPPER ABDOMEN: Unremarkable. THIS IS AN ELECTRONICALLY VERIFIED FINAL REPORT 06/03/2024 4:15 AM - Electronically signed by Rey Alex M.D. AR: ALIZE Report ID: [id number] Reading Location: [id number] Procedure Note Rey Alex MD - 06/03/2024 EXAM DESCRIPTION: XR CHEST SINGLE VIEW PORTABLE REASON FOR STUDY: intermittent chest pain for 1 year. tachycardic today. hx: htn, dm TECHNIQUE: Portable upright AP view of the chest. COMPARISON: 10/13/2023 FINDINGS: LUNGS AND PLEURA: No focal opacity, large effusion, or pneumothorax identified. HEART/MEDIASTINUM: Trachea midline. Cardiac silhouette normal in size. Mediastinal contours appear normal. BONES: Unremarkable. CHEST WALL: Unremarkable. UPPER ABDOMEN: Unremarkable. THIS IS AN ELECTRONICALLY VERIFIED FINAL REPORT 06/03/2024 4:15 AM - Electronically signed by Rey Alex M.D. AR: ALIZE Report ID: [id number] Reading Location: [id number] IMPRESSION: No acute abnormality identified. Dhaval Irwin MD IMG DIAGNOSTIC ORDERABLES Final Result * D-Dimer (06/03/2024 3:26 AM CDT) D DIMER <=0.27 <0.50 mcg/mL FEU 06/03/2024 3:39 AM CDT [facility] Blood Venipuncture / Unknown 06/03/2024 3:26 AM CDT 06/03/2024 3:28 AM CDT Narrative [facility] - 06/03/2024 3:39 AM CDT The FDA has approved this method to exclude the diagnosis of DVT and/or PE at the cutoff value of <0.50 mcg/mL FEU. Dhaval Irwin MD HEMATOLOGY ORDERABLES Fin al Result [facility] [address] [place] [address] * B-Type Natriuretic Peptide (BNP) (06/03/2024 3:26 AM CDT) B TYPE NATRIURETIC PEPTIDE <15 <100 pg/mL 06/03/2024 4:16 AM CDT [facility] Blood Venipuncture / Unknown 06/03/2024 3:26 AM CDT 06/03/2024 3:28 AM CDT us Dhaval Irwin MD CHEMISTRY ORDERABLES June janeth Result [facility] [address] [place] [address] * (ABNORMAL) URINALYSIS REFLEX IF INDICATED BY ABNORMAL RESULTS (06/03/2024 3:21 AM CDT) Only the most recent of3 resultswithin the time period is included. SPECIFIC GRAVITY 1.015 1.003 - 1.030 06/03/2024 4:01 AM CDT [facility] URINE PH 6.0 5.0 - 9.0 06/03/2024 4:01 AM CDT [facility] WBC ESTERASE Negative Negative 06/03/2024 4:01 AM CDT [facility] NITRITE Negative Negative 06/03/2024 4:01 AM CDT [facility] PROTEIN, RANDOM URINE 30 mg/dL(A) Negative 06/03/2024 4:01 AM CDT [facility] URINE GLUCOSE, QUAL 1000 mg/dL(A) Negative 06/03/2024 4:01 AM CDT [facility] URINE KETONES Negative Negative 06/03/2024 4:01 AM CDT [facility] UROBILINOGEN Normal Normal mg/dL 06/03/2024 4:01 AM CDT [facility] URINE BLOOD Negative Negative lucrecia/ul 06/03/2024 4:01 AM CDT [facility] URINALYSIS COLOR Pale yellow 06/03/2024 4:01 AM CDT [facility] URINALYSIS CLARITY Clear 06/03/2024 4:01 AM CDT [facility] WBC (Urine) Negative Negative, 0-5 /hpf 06/03/2024 4:01 AM CDT [facility] URINE RBC'S Negative Negative, 0-2 /hpf 06/03/2024 4:01 AM CDT [facility] EPITHELIAL CELLS Small amount /lpf 06/03/2024 4:01 AM CDT [facility] BACTERIA, URINE Few(A) Negative /hpf 06/03/2024 4:01 AM CDT [facility] CASTS Occasional Hyaline Casts(A) Negative, 0-2/lpf, 3-5/lpf, 6-10/lpf, 11-20/lpf, >20/lpf /lpf 06/03/2024 4:01 AM CDT [facility] Urine URINE SPECIMEN OBTAINED BY CLEAN CATCH PROCEDURE / Unknown Non-Phlebotomy Collection / Unknown 06/03/2024 3:21 AM CDT 06/03/2024 3:34 AM CDT us Dhaval Irwin MD URINE ORDERABLES Final Re sult [facility] [address] [place] [address] * Urine Drug Screen (06/03/2024 3:21 AM CDT) UR AMPHETAMINE NON DETECTED NON DETECTED 06/03/2024 3:54 AM CDT [facility] Comment: FOR MEDICAL USE ONLY. CUTOFF CONCENTRATION FOR DETECTED RESULT: AMPHETAMINE: 500 NG/ML UR BENZODIAZEPINES NON DETECTED NON DETECTED 06/03/2024 3:54 AM CDT [facility] Comment: FOR MEDICAL USE ONLY. CUTOFF CONCENTRATION FOR DETECTED RESULT: BENZODIAZAPINE: 200 NG/ML UR COCAINE METABOLITE NON DETECTED NON DETECTED 06/03/2024 3:54 AM CDT [facility] Comment: FOR MEDICAL USE ONLY. CUTOFF CONCENTRATION FOR DETECTED RESULT: COCAINE: 150 NG/ML UR OPIATES NON DETECTED NON DETECTED 06/03/2024 3:54 AM CDT [facility] Comment: FOR MEDICAL USE ONLY. CUTOFF CONCENTRATION FOR DETECTED RESULT: OPIATES: 300 NG/ML UR PHENCYCLIDINE NON DETECTED NON DETECTED 06/03/2024 3:54 AM CDT [facility] Comment: FOR MEDICAL USE ONLY. CUTOFF CONCENTRATION FOR DETECTED RESULT: PCP: 25 NG/ML UR CANNABINOID NON DETECTED NON DETECTED 06/03/2024 3:54 AM CDT [facility] Comment: FOR MEDICAL USE ONLY. CUTOFF CONCENTRATION FOR DETECTED RESULT: THC (MARIJUANA): 50 NG/ML UR BARBITURATE NON DETECTED NON DETECTED 06/03/2024 3:54 AM CDT [facility] Comment: FOR MEDICAL USE ONLY. CUTOFF CONCENTRATION FOR DETECTED RESULT: BARBITUATES: 200 NG/ML UR FENTANYL NON DETECTED NON DETECTED 06/03/2024 3:54 AM CDT [facility] Comment: FOR MEDICAL USE ONLY. CUTOFF CONCENTRATION FOR DETECTED RESULT: FENTANYL: 1.0 NG/ML Urine Non-Phlebotomy Collection / Unknown 06/03/2024 3:21 AM CDT 06/03/2024 3:34 AM CDT Dhaval Irwin MD URINE ORDERABLES Final Re sult Performing Organization Address City/[facility]/ZIP Co de Phone Number [facility] [address] [place] [address] * TROPONIN I, HIGH SENSITIVITY (HSTRP) (06/03/2024 3:11 AM CDT) [facility] TROPONIN I, HIGH SENSITIVITY- [place] <3 <=14 ng/L 06/03/2024 4:01 AM CDT [facility] Comment: High-sensitivity troponin I results are reported in ng/L making the result appear to be 1,000 times higher than the contemporary troponin I value which is reported in ng/ml. Results from [place]. Blood Venipuncture / Unknown 06/03/2024 3:11 AM CDT 06/03/2024 3:16 AM CDT Dhaval Irwin MD CHEMISTRY ORDERABLES June l Result [facility] [address] [facility] [place] [address] * (ABNORMAL) CBC with Auto Differential (06/03/2024 3:11 AM CDT) Only the most recent of3 resultswithin the time period is included. WBC 6.90 4.00 - 12.00 10(3)/mcL 06/03/2024 3:19 AM CDT [facility] RBC 4.78 3.80 - 5.30 10(6)/mcL 06/03/2024 3:19 AM CDT [facility] HEMOGLOBIN (HGB) 13.0 12.0 - 15.8 g/dL 06/03/2024 3:19 AM CDT [facility] HEMATOCRIT (HCT) 42.5 36.0 - 47.0 % 06/03/2024 3:19 AM CDT [facility] MCV 88.9 82.0 - 96.0 fL 06/03/2024 3:19 AM CDT [facility] MCH 27.2 26.0 - 34.0 pg 06/03/2024 3:19 AM CDT [facility] MCHC 30.6(L) 31.0 - 36.0 g/dL 06/03/2024 3:19 AM CDT [facility] PLATELET COUNT 186 140 - 440 10(3)/mcL 06/03/2024 3:19 AM CDT [facility] RDW 13.2 11.8 - 15.5 % 06/03/2024 3:19 AM CDT [facility] MPV 10.0 9.7 - 12.4 fL 06/03/2024 3:19 AM CDT [facility] NEUTROPHILS 41.4(L) 47.0 - 73.0 % 06/03/2024 3:19 AM CDT [facility] LYMPHOCYTES 48.0(H) 18.0 - 42.0 % 06/03/2024 3:19 AM CDT [facility] MONOCYTES 9.1 4.0 - 12.0 % 06/03/2024 3:19 AM CDT [facility] EOSINOPHILS 1.2 0.0 - 5.0 % 06/03/2024 3:19 AM CDT [facility] BASOPHILS 0.3 0.0 - 1.0 % 06/03/2024 3:19 AM CDT [facility] ABSOLUTE NEUTROPHILS 2.86 1.60 - 7.70 10(3)/mcL 06/03/2024 3:19 AM CDT [facility] ABSOLUTE LYMPHOCYTES 3.31(H) 1.30 - 3.20 10(3)/mcL 06/03/2024 3:19 AM CDT [facility] ABSOLUTE MONOCYTES 0.63 0.20 - 1.00 10(3)/mcL 06/03/2024 3:19 AM CDT [facility] ABSOLUTE EOSINOPHIL 0.08 0.00 - 0.40 10(3)/mcL 06/03/2024 3:19 AM CDT [facility] ABSOLUTE BASOPHILS 0.02 0.00 - 0.10 10(3)/[facility] 06/03/2024 3:19 AM CDT [facility] NRBC PER 100 WBC 0 06/04/19 3:19 AM CDT [facility] Blood Venipuncture / Unknown 06/03/2024 3:11 AM CDT 06/03/2024 3:16 AM CDT us Dhaval Irwin MD HEMATOLOGY ORDERABLES Fin al Result [facility] [address] [place] [address] * THYROXINE (T4) FREE (06/03/2024 3:11 AM CDT) Only the most recent of2 resultswithin the time period is included. [facility] T4 FREE 1.0 0.7 - 1.9 ng/dL 06/03/2024 4:01 AM CDT [facility] Blood Venipuncture / Unknown 06/03/2024 3:11 AM CDT 06/03/2024 3:16 AM CDT Dhaval Irwin MD CHEMISTRY ORDERABLES June l Result Performing Organization Address City/[facility]/ZIP Co de Phone Number [facility] [address] [place] [address] * Thyroid Stimulating Hormone (TSH) (06/03/2024 3:11 AM CDT) TSH 2.140 0.300 - 5.000 mIU/L 06/03/2024 4:01 AM CDT [facility] Blood Venipuncture / Unknown 06/03/2024 3:11 AM CDT 06/03/2024 3:16 AM CDT Dhaval Irwin MD CHEMISTRY ORDERABLES June l Result Performing Organization Address City/[facility]/ZIP Co de Phone Number [facility] [address] [place] [address] * MAGNESIUM (MG) (06/03/2024 3:11 AM CDT) MAGNESIUM 1.8 1.6 - 2.6 mg/dL 06/03/2024 3:41 AM CDT [facility] Blood Venipuncture / Unknown 06/03/2024 3:11 AM CDT 06/03/2024 3:16 AM CDT Dhaval Irwin MD CHEMISTRY ORDERABLES June l Result Performing Organization Address City/[facility]/ZIP Co de Phone Number [facility] [address] [place] [address] * (ABNORMAL) Comprehensive Metabolic Panel (Cmp) [id number] (06/03/2024 3:11 AM CDT) Only the most recent of3 resultswithin the time period is included. SODIUM 137 136 - 145 mmol/L 06/03/2024 3:41 AM CDT [facility] POTASSIUM 4.0 3.5 - 5.1 mmol/L 06/03/2024 3:41 AM T [facility] CHLORIDE 103 98 - 107 mmol/L 06/03/2024 3:41 AM T [facility] CO2, VENOUS 24 22 - 30 mmol/L 06/03/2024 3:41 AM CDT [facility] ANION GAP 14.0 <18.0 mmol/L 06/03/2024 3:41 AM T [facility] GLUCOSE 240(H) 70 - 99 mg/dL 06/03/2024 3:41 AM T [facility] BUN 17 10 - 20 mg/dL 06/03/2024 3:41 AM T [facility] CREATININE, BLOOD 1.03(H) 0.60 - 1.00 mg/dL 06/03/2024 3:41 AM T [facility] BUN/CREATININE RATIO 17 12 - 20 ratio 06/03/2024 3:41 AM CDT [facility] TOTAL PROTEIN 8.0 6.0 - 8.0 g/dL 06/03/2024 3:41 AM T [facility] ALBUMIN 4.0 3.5 - 5.0 g/dL 06/03/2024 3:41 AM [facility] A/G RATIO 1.0 1.0 - 2.2 06/03/2024 3:41 AM CDT [facility] CALCIUM 9.5 8.7 - 10.5 mg/dL 06/03/2024 3:41 AM CDT [facility] T BILI 0.2 0.2 - 1.2 mg/dL 06/03/2024 3:41 AM T [facility] SGOT (AST) 39 <43 U/L 06/03/2024 3:41 AM CDT [facility] SGPT (ALT) 33 <56 U/L 06/03/2024 3:41 AM CDT [facility] ALKALINE PHOSPHATASE 83 40 - 150 U/L 06/03/2024 3:41 AM CDT [facility] GFR, ESTIMATED >60 >=60 06/03/2024 3:41 AM CDT [facility] Comment: Creatinine Clearance is the preferred criteria for selecting drug dose adjustments in renally impaired patients. The GFR is provided as additional pertinent clinical information. GFR is reported in mL/min/1.73 sq m. Calculation based on the Chronic Kidney Disease Epidemiology Collaboration (CKD- EPI) equation refit without adjustment for race. GFR, EST. >60 >=60 025 3:41 AM CDT [facility] GFR, EST. NONAFRICAN 56(L) >=60 06/03/2024 3:41 AM CDT [facility] Blood Venipuncture / Unknown 06/03/2024 3:11 AM CDT 06/03/2024 3:16 AM CDT us Dhaval Irwin MD CHEMISTRY ORDERABLES June l Result [facility] [address] [place] [address] * EKG 12 LEAD (06/03/2024 2:59 AM CDT) Only the most recent of2 resultswithin the time period is included. Ventricular Rate 123 BPM EXTERNAL EKG Atrial Rate 123 BPM EXTERNAL EKG P-R Interval 156 ms EXTERNAL EKG QRS Duration 72 ms EXTERNAL EKG Q-T Duration 316 ms EXTERNAL EKG QTC CALCULATION 452 ms EXTERNAL EKG P [place] 66 degrees EXTERNAL EKG R [place] 27 degrees EXTERNAL EKG T [place] 22 degrees EXTERNAL EKG 06/03/2024 2:59 AM CDT Impressions EXTERNAL EKG - 06/04/2024 11:32 AM CDT Sinus tachycardia Nonspecific ST abnormality Abnormal ECG When compared with ECG of 14-APR-2024 02:52, ST less depressed in Anterolateral leads T wave inversion no longer evident in Lateral leads Confirmed by ROSANA CAMACHO ([id number]) on 06/04/2024 11:32:02 AM Narrative Procedure Note Rosana Camacho MD - 06/04/2024 IMPRESSION: Sinus tachycardia Nonspecific ST abnormality Abnormal ECG When compared with ECG of 14-APR-2024 02:52, ST less depressed in Anterolateral leads T wave inversion no longer evident in Lateral leads Confirmed by ROSANA CAMACHO ([id number]) on 06/04/2024 11:32:02 AM Dhaval Irwin MD IMG ECG ORDERABLES Final Result Performing Organization Address [facility] Co de Phone Number EXTERNAL EKG * EKG SCAN (06/03/2024 12:00 AM CDT) Only the most recent of2 resultswithin the time period is included. 06/03/2024 us Provider Scan IMG ECG ORDERABLES Final Result Performing Organization Address [facility] Co de Phone Number RESULTING AGENCY * CT ABDOMEN PELVIS W/ CONTRAST (05/25/2024 11:22 PM CDT) Only the most recent of2 resultswithin the time period is included. Anatomical Region Laterality Modality Abdomen N/A Computed Tomogra phy 05/25/2024 11:3 9 PM CDT Impressions 05/25/2024 11:42 PM CDT IMPRESSION: No hernia, urinary tract inflammation, or other acute abnormality identified. Narrative 05/25/2024 11:42 PM CDT EXAM DESCRIPTION: CT ABDOMEN PELVIS W/ CONTRAST REASON FOR STUDY: Left groin pain for 3 days with nausea and vomiting, recent UTI diagnosis TECHNIQUE: CT scan of the abdomen and pelvis performed with intravenous and without oral contrast using helical scanning technique with dynamic intravenous contrast injection. Reconstructed coronal and sagittal MPR images reviewed. All images stored on PACS. Automated exposure control was used as a dose optimization technique for this examination. CONTRAST TYPE/DOSE: 85mL of IOPAMIDOL 76 % IV SOLN injected via Intravenous COMPARISON: 04/14/2024 FINDINGS: LOWER CHEST: Lung bases clear. Heart size normal. Coronary artery calcifications. No effusion. LIVER/BILIARY: Liver unremarkable. Biliary tree normal in caliber. GALLBLADDER: Normal. SPLEEN: Normal. PANCREAS: Normal. ADRENAL GLANDS: Normal. KIDNEYS/URINARY TRACT: Moderate renal scarring. Ureters and bladder appear normal. GI: Stomach and small bowel appear normal. Colon and appendix unremarkable. OTHER ABDOMINAL/PELVIS: Major vascular structures are grossly patent and normal in caliber. No enlarged lymph node or free fluid. MSK: [id number]-[id number]-lsehicau disc disease and facet arthropathy. BODY WALL: Unremarkable. THIS IS AN ELECTRONICALLY VERIFIED FINAL REPORT 05/25/2024 11:39 PM - Electronically signed by Rey Alex M.D. AR: ALIZE Report ID: [id number] Reading Location: [place] [id number] Procedure Note Rey Alex MD - 05/25/2024 EXAM DESCRIPTION: CT ABDOMEN PELVIS W/ CONTRAST REASON FOR STUDY: Left groin pain for 3 days with nausea and vomiting, recent UTI diagnosis TECHNIQUE: CT scan of the abdomen and pelvis performed with intravenous and without oral contrast using helical scanning technique with dynamic intravenous contrast injection. Reconstructed coronal and sagittal MPR images reviewed. All images stored on PACS. Automated exposure control was used as a dose optimization technique for this examination. CONTRAST TYPE/DOSE: 85mL of IOPAMIDOL 76 % IV SOLN injected via Intravenous COMPARISON: 04/14/2024 FINDINGS: LOWER CHEST: Lung bases clear. Heart size normal. Coronary artery calcifications. No effusion. LIVER/BILIARY: Liver unremarkable. Biliary tree normal in caliber. GALLBLADDER: Normal. SPLEEN: Normal. PANCREAS: Normal. ADRENAL GLANDS: Normal. KIDNEYS/URINARY TRACT: Moderate renal scarring. Ureters and bladder appear normal. GI: Stomach and small bowel appear normal. Colon and appendix unremarkable. OTHER ABDOMINAL/PELVIS: Major vascular structures are grossly patent and normal in caliber. No enlarged lymph node or free fluid. MSK: [id number] disc disease and facet arthropathy. BODY WALL: Unremarkable. THIS IS AN ELECTRONICALLY VERIFIED FINAL REPORT 05/25/2024 11:39 PM - Electronically signed by Rey Alex M.D. AR: ALIZE Report ID: [id number] Reading Location: [id number] IMPRESSION: No hernia, urinary tract inflammation, or other acute abnormality identified. Result [facility] Dhaval Irwin MD IMG CT ORDERABLES Final R esult * THYROID SCREEN WITH REFLEX (04/14/2024 12:51 AM [employer]) Pathologist [facility] TSH 2.366 0.300 - 5.000 mIU/L 04/14/2024 3:34 AM [employer] [facility] Blood Venipuncture / Unknown 04/14/2024 12:51 AM [employer] 04/14/2024 1:06 AM [employer] Result [facility] Dhaval Irwin MD CHEMISTRY ORDERABLES June l Result [facility] [place] [address] * Lipase [id number] (04/14/2024 12:51 AM [employer]) Pathologist [facility] LIPASE 52 8 - 78 U/L 04/14/2024 1:29 AM [employer] [facility] Blood Venipuncture / Unknown 04/14/2024 12:51 AM [employer] 04/14/2024 1:06 AM [employer] Dhaval Irwin MD CHEMISTRY ORDERABLES June l Result [facility] [place] [address] * (ABNORMAL) HEMOGLOBIN A1C W/ ESTIMATED GLUCOSE (10/15/2015 3:31 PM CDT) Pathologist [facility] HGB-A1C 6.8(H) 4.4 - 6.4 % 10/15/2015 5:54 PM CDT [facility] Est Average Glucose 148.5 mg/dL 10/15/2015 5:54 PM CDT [facility] Blood specimen (specimen) Venipuncture / Unknown 10/15/2015 3:31 PM CDT 10/15/2015 4:30 PM CDT Narrative [facility] - 10/15/2015 5:54 PM CDT HEMOGLOBIN A1C: DIABETIC PATIENTS: WELL-CONTROLLED: 6.2 - 7.0 INTERMEDIATE WELL-CONTROLLED: 7.0 - 9.0 POORLY-CONTROLLED: >9.0 us Mayelin Milan [employer], NUCLEAR FUEL PROCESSING TECHNICIAN CHEMISTRY ORDERABLES Fin al Result [facility] [facility] [place] [address] from Last 3 Months or Most Recently Relevant to Health Maintenance Insurance MEDICARE [place]ID [place] Advance Directives * Full Code (Latest Code Status on File) Date Activated Date Inactivated Comments 05/01/2016 10:59 PM 05/03/2016 3:03 PM CPR-Full Tr eatment: FULL ARREST: Attempt Resuscitation/CPR wit intubation and mechanical ventilation. PRE-ARREST: Use entire range of life support measures to stabilize the patient. Care Teams Anatomic Pathology Manager Relationship Specialty Start Date End Date Christen Enriquez APRN, NUCLEAR FUEL PROCESSING TECHNICIAN [address] [place] [address] PCP - General Advanced Practice Nurse 12/04/19
--- OUTSIDE RECORDS SUMMARY | 2024-06-30 11:14 | XMS_ITS | Clinical Summary ---
Author Organization [facility] Address [address] [place] [address] Care Team Providers Care Log Carrier Operator Name Role Phone Christen Enriquez NP Primary Care Provider + [phone] Allergies Active Allergy Reactions Criticality Noted Date Comments Insulin Glargine Itching High 09/03/2022 Ketorolac Ketorolac Tromethamine Other (See comments) Low kidney problems Medications diphenhydrAMINE (BENADRYL) 25 mg capsule Take 1 tablet/capsule (25 mg total) by mouth every 6 (six) hours as needed for itching Active busPIRone (BUSPAR) 15 mg tablet Take 1 tablet (15 mg total) by mouth 3 (three) times a day 1 Active aspirin 81 mg enteric coated tablet Take 1 tablet (81 mg total) by mouth daily 2 Active tiZANidine (ZANAFLEX) 4 mg tablet Take 1 tablet (4 mg total) by mouth 3 (three) times a day as needed 2 Active fenofibrate (TRIGLIDE) 160 mg tablet Take 1 tablet (160 mg total) by mouth every morning 2 Active famotidine (PEPCID) 20 mg tabletIndicatio ns:Heartburn Prevention Take 1 tablet (20 mg total) by mouth 2 (two) times a day Active amLODIPine (NORVASC) 10 mg tablet Take 1 tablet (10 mg total) by mouth daily Active cariprazine (Vraylar) 1.5 mg capsuleIndicati ons:Depression Treatment Adjunct Take 1 capsule (1.5 mg total) by mouth daily Active blood-glucose meter kit Use daily as directed for monitoring of blood sugar for diabetes e11.65 1 kit 1 3 Active rosuvastatin (CRESTOR) 20 mg tablet Take 1 tablet (20 mg total) by mouth nightly E11.65 90 tablet 3 3 Active metoprolol (LOPRESSOR) 100 mg tablet Take 1 tablet (100 mg total) by mouth 2 (two) times a day Take as directed to treat high blood pressure. Collaborating physician Freddy Brown MD 60 tablet 4 Active lisinopriL (PRINIVIL,ZESTR [place]) 30 mg tablet Take 1 tablet (30 mg total) by mouth daily Take as directed for high blood pressure. Collaborating physician Freddy Brown MD 30 tablet 1 4 Active empagliflozin (JARDIANCE) 25 mg tabletIndicatio ns:type 2 diabetes mellitus Take 1 tablet (25 mg total) by mouth daily E11.65 90 tablet 3 4 Active metFORMIN (GLUCOPHAGE) 1,000 mg tablet Take 1 tablet (1,000 mg total) by mouth 2 (two) times a day with meals E11.65 180 tablet 4 4 Active pen needle, diabetic (BD Ultra-Fine Asuncion Pen Needle) 32 gauge x 5/32 needle Inject 1 Device under the skin 4 (four) times a day before meals and nightly Use to deliver insulin 4x/day. E11.65 300 each 4 4 Active lancets misc Please use insurance compatible lancets to test blood sugar 3x/day. E11.65 300 each 4 4 Active insulin aspart niacinamide (FIASP) 100 unit/mL (3 mL) pen for injection Inject 10 Units under the skin 3 (three) times a day before meals E11.65 30 mL 3 4 Active blood glucose diagnostic (glucose blood) strip Check blood sugar 3x times a day e11.65 300 each 4 4 Active venlafaxine XR (EFFEXOR-XR) 150 mg 24 hr capsule Take 1 capsule (150 mg total) by mouth daily 4 Active divalproex ER (DEPAKOTE ER) 500 mg 24 hr tablet 4 Active insulin degludec-liragl utide (XULTOPHY) 100 unit-3.6 mg /mL (3 mL) insulin pen penIndications: type 2 diabetes mellitus Inject 30 Units under the skin daily E11.65 30 mL 4 4 Active Dexcom G7 Sensor device 1 Device continuously . Change every 10 days. E11.65 10 each 3 5 Active Active Problems Problem Noted Date Diagnosed Date Encounter for medication refill 08/25/2023 Mixed diabetic hyperlipidemi a associated with type 2 diabetes mellitus 12/31/2022 Assessment & Plan (10/05/2023 10:07 AM CDT): This is a chronic condition which is not at goal . Goal is LDL less than 70 Continue rosuvastatin, fenofibrate Encouraged to eat healthy, include fresh fruits and vegetables daily and avoid eating fried foods more than once per week. Encouraged to take medications as prescribed. Assessment & Plan (12/31/2022 4:38 PM CDT): This is a chronic condition which is not at goal of LDL less than 70 Start rosuvastatin 20 mg daily Encouraged to eat healthy, include fresh fruits and vegetables daily and avoid eating fried foods more than once per week. Encouraged to take medications as prescribed. Hypertension associated with type 2 diabetes jatin litus 07/30/2013 Overview (06/19/2016): HYPERTENSION NOS Assessment & Plan (10/05/2023 10:09 AM CDT): This is a chronic condition which is not at goal upon arrival. At goal after rest. Goal is less than 140/90 Personally reviewed labs. Continue amlodipine, lisinopril Encouraged to monitor weight and B/P at home. Encouraged to void caffeine and excessive alcohol consumption as this will elevate B/P Encouraged to take medications as prescribed. Assessment & Plan (12/31/2022 4:34 PM CDT): This is a chronic condition which is at goal of less than 140/90 Personally reviewed labs. Continue metoprolol, lisinopril, amlodipine Encouraged to monitor weight and B/P at home Encouraged to take medications as prescribed. Assessment & Plan (10/01/2022 4:17 PM CDT): This is a chronic condition which is at goal of less than 140/90 Personally reviewed labs. Continue lisinopril metoprolol amlodipine Encouraged to monitor weight and B/P at home Encouraged to take medications as prescribed. Assessment & Plan (09/03/2022 1:13 PM CDT): This is a chronic condition which is at goal of less than 140/90 Personally reviewed labs. Continue amlodipine, lisinopril, metoprolol Encouraged to monitor weight and B/P at home Encouraged to take medications as prescribed. Type 2 diabetes mellitus wit h hyperglycemia, with long-term current use of insulin 07/30/2013 Overview (06/19/2016): DMII WO CMP NT ST UNCNTR Assessment & Plan (10/05/2023 10:10 AM CDT): This is a chronic condition which is uncontrolled, not at goal worsening due to lack of insulin administration . Goal is less than 7%. Personally reviewed most recent A1c - Lab Results Component Value Date HGBA1C 13.3 10/05/2023 Personally reviewed POC blood sugar- not at goal of 80-180 Lab Results Component Value Date POCGLU 600 10/05/2023 Medication- encouraged to take medication as prescribed. increase Xultophy 30 units daily. continue Jardiance 25 mg po daily. Continue metformin 1000 mg twice daily with meals. Encouraged to take xultophy 30 units daily. We will try to reduce the daily doses of insulin to see if that will help her maintain manage her medication. She reports she has not taking NovoLog at all Monitor blood sugar continuously with cgm. Encouraged to return to wearing Dexcom 7 is that did seem to help her with her blood sugar control. Monofilament foot exam completed. Protective senses intact. Personally reviewed CMP eGFR- 70 Kidney function- in range Urine microalbumin/creatinine ratio - not at goal. Goal is <30 Continue amlodpine, lisinopril Assessment & Plan (12/31/2022 4:38 PM CDT): This is a chronic condition which is inadequately controlled , improving not at goal of less than 7%. Personally reviewed most recent A1c - Lab Results Component Value Date HGBA1C 8.8 12/31/2022 Personally reviewed POC blood sugar- not at goal 80-180 Lab Results Component Value Date POCGLU 283 12/31/2022 Medication- stop tresiba stop novolog 10 units - stop victoza. Start Xultophy 25 units daily. Increase Jardiance 25 mg po daily. Continue metformin 1000 mg twice daily with meals. Will try and reduce multiple injections to increase compliance. Call blood sugars in 4 days Monitor blood sugar continuously with dexcom 7 sensor. Encouraged annual eye exam. Monofilament foot exam completed. protective senses intact Personally reviewed CMP eGFR- 78 Kidney function- normal Urine microalbumin/creatinine ratio - not at goal <30 treated with lisinopril, amlodipine, metoprolol B/P today- at goal of <140/90. continue lisinopril, amlodipine, metoprolol Personally reviewed lipid panel. Not at Goal of less than 70. Continue fenofibrate and start rosuvastatin Assessment & Plan (10/01/2022 4:17 PM CDT): This is a chronic condition which is improving - down from 13.8. inadequately controlled not at goal of less than 7%. Personally reviewed most recent A1c - Lab Results Component Value Date HGBA1C 10.2 10/01/2022 Personally reviewed POC blood sugar- at goal 80-180 Lab Results Component Value Date POCGLU 180 10/01/2022 Medication- Continue continue tresiba 22 units daily in am, novolog 10 units -3times/day prior to meals, victoza 1.8mg daily, add jardiance 10mg po daily. Monitor blood sugar continuously with Dexcom 7 sensor. Encouraged annual eye exam. Monofilament foot exam completed. protective senses intact loss of protective senses. Treated with Gabapentin/Lyrica Personally reviewed CMP eGFR- 78 Kidney function- normal Urine microalbumin/creatinine ratio - not at goal <30 treated with lisinopril metoprolol amlodipine B/P today- not at goal of <140/90. continue lisinopril metoprolol amlodipine Personally reviewed lipid panel. Not at Goal of less than 70. Continue on fenofibrate Assessment & Plan (09/03/2022 1:17 PM CDT): This is a chronic condition which is out of control - not at goal of less than 7% mainly due to medication noncompliance. According to the EMR it looks like she is lost about 37 lb. This is most likely to insulin deficiency. I have repeated her labs and ask her to return in 2 weeks. I encouraged her to continue taking her Tresiba in the a.m. and 10 units NovoLog prior to each meal. Personally reviewed most recent A1c - Lab Results Component Value Date HGBA1C 13.8 (H) 06/25/2022 Personally reviewed POC blood sugar- at goal 80-180 Lab Results Component Value Date POCGLU 181 09/03/2022 Medication- Continue tresiba 22 units daily in am, novolog 10 units -3times/day prior to meals. Monitor blood sugar 3 times a day. Will attempt to obtain a Dexcom 7 sensor. Encouraged annual eye exam. Monofilament foot exam completed. protective senses intact Personally reviewed CMP eGFR- 82 Kidney function- normal Urine microalbumin/creatinine ratio - needed goal <30 treated with amlodipine, lisinopril, metoprolol B/P today- at goal of <140/90. continue amlodipine, lisinopril, metoprolo lipid panel. goal is less than 70. Continue fenofibrate. Not on statin therapy Resolved Problems Problem Noted Date Diagnosed Date Resolved Date Hyperkalemia 06/25/2022 09/03/2022 Hyponatremia 06/25/2022 09/03/2022 Lactic acidosis 06/25/2022 09/03/2022 Hyperglycemia 06/24/2022 09/03/2022 Shortness of breath 05/27/2021 09/04/19 23 Pneumonia 05/27/2021 09/03/2022 Urinary tract infection in female 05/19/2018 09/03/2022 Vulvovaginitis due to Sindy 05/19/2018 09/03/2022 Depression 07/30/2013 09/03/2022 Overview (06/19/2016): DEPRESSIVE DISORDER NEC Mixed hyperlipidemia 07/30/2013 023 Overview (06/19/2016): HYPERLIPIDEMIA NEC/NOS Hypoxia 09/03/2022 Encounters Date Type Department Care Team Description 06/03/2024 2:44 AM CDT - 06/03/2024 11:59 PM CDT Hospital Encounter [facility] Emergency, Room R Discharge Disposition: Discharge to home or self care 05/25/2024 8:19 PM CDT - 05/25/2024 11:59 PM CDT Hospital Encounter [facility] Emergency, Room R Discharge Disposition: Discharge to home or self care from Last 3 Months Surgical History Surgery Date Site/Laterality Comments SECTION 03/16/1997 - 03/15/1998 section ABDOMINAL SURGERY Medical History Medical History Date Comments Diabetes mellitus (HCC) Diabetes Depression Depression Hypertension Hypertension Urinary tract infection Hyperglycemia 06/24/2022 Hyperkalemia 06/25/2022 Hyponatremia 06/25/2022 Hypoxia Lactic acidosis 06/25/2022 Pneumonia 05/27/2021 Shortness of breath 05/27/2021 Urinary tract infection in female 05/19/2018 Vulvovaginitis due to Sindy 05/19/2018 Family History Medical History Relation Name Comments Fibromyalgia Father Fibromyalgia; Osteoarthritis Mother osteoarthriti s; Diabetes Other 1 Family history of Diabetes mellitus; Heart disease Other 2 Family history of Heart disease; Hypertension Other 3 Family history of Hypertension; Relation Name Status Comments Father Alive Mother Alive Other 1 Other 2 Other 3 Social History Tobacco Use Types Packs/Day Years Used Date Smoking Tobacco: Never Smokeless Tobacco: Never Tobacco Cessation:Counseling Given: Not Answered Alcohol Use Standard Drinks/Week Comments No 0 (1 standard drink = 0.6 oz pur e alcohol) Social Connection and Isolat ion Panel [NHANES] Answer Date Recorded In a typical week, how many times do you talk on the phone with family, friends, or neighbors? More than three times a week 06/25/2022 How often do you get togethe r with friends or relatives? Once a week 06/25/2022 How often do you attend chur ch or islam services? Never 06/25/2022 Do you belong to any clubs o r organizations such as zoroastrianism groups, unions, fraternal or athletic groups, or school groups? No 06/25/2022 How often do you attend meet ings of the clubs or organizations you belong to? Never 06/25/2022 Are you , , di vorced, , never , or living with a partner? 06/25/2022 Overall Financial Resource Strain (CARDIA) Answe r Date Recorded How hard is it for you to pa y for the very basics like food, housing, medical care, and heating? Very hard 06/25/2022 PHQ-2 Answer Date Recorded PHQ-2 Total Score (If total score is 3 or more points, staff should administer the PHQ-9) 0 05/29/2021 Hunger Vital Sign Answer Date Recorded Within the past 12 months, y ou worried that your food would run out before you got the money to buy more. Often true 06/26/19 23 Within the past 12 months, t he food you bought just didn't last and you didn't have money to get more. Often true 06/25/2022 PRAPARE - Transportation Answer Date Re corded In the past 12 months, has l ack of transportation kept you from medical appointments or from getting medications? No 06/14 In the past 12 months, has l ack of transportation kept you from meetings, work, or from getting things needed for daily living? No 06/25/2022 Housing Stability Vital Sign Answer Juan e Recorded In the last 12 months, was t here a time when you were not able to pay the mortgage or rent on time? Yes 06/25/2022 In the last 12 months, how many places have you lived? 1 06/25/2022 In the last 12 months, was t here a time when you did not have a steady place to sleep or slept in a fdc (including now)? No 06/25/2022 Personal Safety Answer Date Recorded Have you ever been in or are you currently in a harmful physical or emotional relationship or is someone making you feel afraid or unsafe? Denies 10/29/2023 Education Answer Date Recorded What is the highest level of school you have completed or the highest degree you have received? High school graduate 06/25/2022 Comments No Sex and Gender Information Value Date Recorded Sex Assigned at Not on file Legal Sex Female 8:03 AM FORENSIC IDENTIFICATION SPECIALIST Gender Identity Not on file Sexual Orientation Not on file Obstetrics History Last Filed Vital Signs Vital Sign Reading Time Taken Comments Blood Pressure 139/83 10/29/2023 10:00 AM CDT Pulse 76 10/29/2023 10:00 AM CDT Temperature 36.1 C (96.9 F) 10/29/2023 6:02 AM CDT Respiratory Rate 12 10/29/2023 10:00 AM CDT Oxygen Saturation 99% 10/29/2023 10:00 AM CDT Inhaled Oxygen Concentration - - Weight 77.1 kg (170 lb) 10/29/2023 5:58 AM CDT Height 162.6 cm (5' 4 ) 10/05/2023 9:03 AM CDT Body Mass Index 29.18 10/05/2023 9:03 AM CDT Plan of Treatment Health Maintenance Due Date Last Done Comments Breast Cancer Screening-Mammogram 1970 Cervical Cancer Screening 1970 Colon Cancer Screening-Colonoscopy 1970 Hepatitis C Screening 1970 Hepatitis B Screening 1988 Regular Well Visit/Exam 18-64 1988 Pneumococcal vaccine <65 (2 of 2 - PCV) 02/12/2012 02/11/2011 Zoster Vaccine (1 of 2) 2020 Depression Screening 05/27/2022 05/27/2021 Dilated Eye Exam 03/18/2024 03/18/2022 Albumin Creatinine Ratio, Urine 10/04/2024 , 09/03/2022 Foot Exam 10/04/2024 10/05/2023, 12/14, 10/01/2022, Additional history exists Lipid Panel 10/04/2024 10/05/2023, 09/03/2022 eGFR 10/28/2024 10/29/2023, 09/15, 06/09/2023, Additional history exists Hemoglobin A1C 11/08/2024 05/11/2024, 09/14, 12/31/2022, Additional history exists Influenza Vaccine (Season Ended) 2024 12/03/2022, 03/19/2022, 04/30/2021, Additional history exists DTaP/Tdap/Td Vaccine (3 - Td or Tdap) 03/19/2032 03/19/2022, 02/13/2010 Procedures Procedure Name Priority Date/Time Associated Diagnosis Comments HEMOGLOBIN A1C Routine 05/11/2024 EGFR STAT 10/29/2023 6:18 AM CDT LIPID PANEL Routine 10/05/2023 3:01 PM CDT Type 2 diabetes mellitus with hyperglycemia, with long-term current use of insulin (HCC) ALBUMIN CREATININE RATIO, URINE Routine 10/05/2023 3:01 PM CDT Type 2 diabetes mellitus with hyperglycemia, with long-term current use of insulin (HCC) DIABETIC EYE EXAM Routine 03/18/2022 from Last 3 Months or Most Recently Relevant to Health Maintenance Results * (ABNORMAL) Hemoglobin A1c (05/11/2024) SCRIBED Hemoglobin A1c 12.5(A) 4.8 - 5.7 % EXTERNAL LAB Blood 05/11/2024 us Historical Provider LAB BLOOD ORDERABLES June l Result EXTERNAL LAB * eGFR (10/29/2023 6:18 AM CDT) eGFR 75 >=60 mL/min/1. 73 m2 Comment: Interpretive Data Reference Interval Normal >/= 90 mL/min/1.73m2 Mildly decreased* 60 - 89 mL/min/1.73m2 Mildly to moderately decreased 45 - 59 mL/min/1.73m2 Moderately to severely decreased 30 - 44 mL/min/1.73m2 Severely decreased 15 - 29 mL/min/1.73m2 Kidney Failure < 15 mL/min/1.73m2 *Relative to young adult level Estimated glomerular filtration rate is determined by the 2020 CKD-EPI equation recommended by the National Kidney Foundation (A Unifying Approach to GFR Estimation: Recommendations of the NKF-ASK Task Force on Reassessing the Inclusion of Race in Diagnosing Kidney Disease, JASN 2020). The CKD-EPI equation should not be used for patients with unstable renal function and has not been validated in children and those over 70. Current interpretive data was last reviewed 2021. Blood 10/29/2023 6:18 AM CDT 10/29/2023 6:21 AM CDT us Letitia Somers MD LAB BLOOD ORDERABLES Fin al Result [facility] [address] [facility] Department [place] [address] * Albumin Creatinine Ratio, Urine (10/05/2023 3:01 PM CDT) Albumin Ur <12.0 mg/L Comment: Interpretive Data No reference range established. Current interpretive data was last revised 2018. Creatinine Ur 21.3 mg/dL [facility] Comment: Interpretive Data No reference range established. Current interpretive data was last revised 2018. Albumin Creatinine Ratio, Ur See Comment 1 - 29 [facility] Comment:Unable to calculate Urine 10/05/2023 3:01 PM CDT 10/05/2023 3:01 PM CDT us Yamilex Bush NP LAB URINE ORDERABLES Final Resu lt Performing Organization Address City/[facility]/ZIP Co de Phone Number [facility] [id number] [place] [address] * (ABNORMAL) Lipid panel (10/05/2023 3:01 PM CDT) Cholesterol 371(H) 30 - 199 mg/dL Comment: Interpretive Data Ages < or = 19 years Acceptable: <170 mg/dL Borderline high: 170-199 mg/dL High: >or= 200 mg/dL Ages > or = 20 years Desirable: <200 mg/dL Borderline high: 200-239 mg/dL High: >or= 240 mg/dL Literature References: 1. Expert Panel on Integrated Guidelines for Cardiovascular Health and Risk Reduction in Children and Adolescents. Pediatrics 2011;128:S213 2. NCEP Expert Panel. Circulation 2004;110:227 Current Interpretive Data was last revised on 2017. Triglycerides 1,093(H) <=149 mg/dL [facility] Comment: Interpretive Data Ages < or = 9 years Acceptable: <75 mg/dL Borderline high: 75-99 mg/dL High: >or= 100 mg/dL Ages 10 to 20 years Acceptable: <90 mg/dL Borderline high: 90-129 mg/dL High: >or= 130 mg/dL Ages > or = 20 years Desirable: <150 mg/dL Borderline high: 150-199 mg/dL High: 200-499 mg/dL Very high: >or= 499 mg/dL Literature References: 1. Expert Panel on Integrated Guidelines for Cardiovascular Health and Risk Reduction in Children and Adolescents. Pediatrics 2011;128:S213 2. NCEP Expert Panel. Circulation 2004;110:227 Current Interpretive Data was last revised on 2017. HDL 40 >=40 mg/dL [facility] Comment: Interpretive Data Ages < or = 19 years Acceptable: >45 mg/dL Borderline low: 40-45 mg/dL Low: <40 mg/dL Ages > or = 20 years Desirable: >or= 60 mg/dL Low: <40 mg/dL Literature References: 1. Expert Panel on Integrated Guidelines for Cardiovascular Health and Risk Reduction in Children and Adolescents. Pediatrics 2011;128:S213 2. NCEP Expert Panel. Circulation 2004;110:227 Current Interpretive Data was last revised on 2017. LDL, calculated See Comment <=129 mg/dL [facility] Comment: Unable to calculate due to elevated Triglycerides. Interpretive Data Ages < or = 19 years Acceptable: <110 mg/dL Borderline high: 110-129 mg/dL High: >or= 130 mg/dL Ages > or = 20 years Optimal: <100 mg/dL Near optimal: 100-129 mg/dL Borderline high: 130-159 mg/dL High: >160 mg/dL Literature References: 1. Expert Panel on Integrated Guidelines for Cardiovascular Health and Risk Reduction in Children and Adolescents. Pediatrics 2011;128:S213 2. NCEP Expert Panel. Circulation 2004;110:227 Current Interpretive Data was last revised on 2017. Non-HDL Cholesterol 331 mg/dL [facility] Comment: Interpretive Data Ages < or = 19 years Acceptable: <120 mg/dL Borderline high: 120-144 mg/dL High: >145 mg/dL Ages > or = 20 years When triglycerides are >200 mg/dL, Non-HDL cholesterol is a secondary target of therapy with treatment goals that are 30 mg/dL greater than the LDL cholesterol target. Literature References: 1. Expert Panel on Integrated Guidelines for Cardiovascular Health and Risk Reduction in Children and Adolescents. Pediatrics 2011;128:S213 2. NCEP Expert Panel. Circulation 2004;110:227 Current Interpretive Data was last revised on 2017. Chol/HDL ratio 9 [facility] Blood 10/05/2023 3:01 PM CDT 10/05/2023 3:01 PM CDT Narrative [facility] - 10/05/2023 4:00 PM CDT These lab test should be done fasting. This means do not eat or drink for at least 12 hours prior to getting your blood drawn. Yamilex Bush NP LAB BLOOD ORDERABLES Final Resu lt [facility] [id number] Department [place] [address] * Diabetic Eye Exam (03/18/2022) Historical Provider HEALTH MAINTENANCE Final Result from Last 3 Months or Most Recently Relevant to Health Maintenance Insurance [employer] [facility] Advance Directives For more information, please contact: [phone] * Full Code (Latest Code Status on File) Date Activated Date Inactivated Comments 06/24/2022 11:07 PM 06/26/2022 7:15 PM * Full Code Date Activated Date Inactivated Comments 05/27/2021 6:53 AM 05/29/2021 7:30 PM Care Teams Log Carrier Operator Relationship Specialty Start Date End Date Christen Enriquez NP [phone] [address] PCP - General 05/27/21
--- OUTSIDE RECORDS SUMMARY | 2024-06-30 11:14 | XMS_ITS | Encounter Summary ---
Author Organization [facility] Address [address] [place] [address] Phone Care Team Providers Care Rock Singer Name Role Phone Chrisetn Enriquez APRN, CNP Primary Care Provider Encounter Details Date Type Department Care Team ([facility] st Contact Info) Description 06/08/2023 Transcribe Orders [facility] Patient Access Admitting [address] [place] [id number] Provider, Not On File [place] Social History Tobacco Use Types Packs/Day Years Used Date Smoking Tobacco: Never Smokeless Tobacco: Never Alcohol Use Standard Drinks/Week Comments Yes 0 (1 standard drink = 0.6 oz pur e alcohol) occasional Comments No Sex and Gender Information Value Date Recorded Sex Assigned at Female 06/03/2024 3:14 AM CDT Legal Sex Female 11:28 PM CDT Gender Identity Female 06/03/2024 3:14 AM CDT Sexual Orientation Not on file documented as of this encounter Plan of Treatment Not on file documented as of this encounter Visit Diagnoses Not on filedocumented in this encounter Additional Health Concerns Infection Onset Date Last Indicated Resolved Time COVID - 19 10/13/2023 10/13/2023 10/13/2023 2:05 AM CDT documented as of this encounter Care Teams Rock Singer Relationship Specialty Start Date End Date Christen Enriquez APRN, CNP [address] [place] [address] PCP - General Advanced Practice Nurse 12/04/19 documented as of this encounter
--- OUTSIDE RECORDS SUMMARY | 2024-06-30 11:14 | XMS_ITS | Clinical Summary ---
Author Organization [facility] Address [address] [place] [address] Care Team Providers Care Customer Quality Specialist Name Role Phone Den Jones MD Primary Care Provider [phone] Social History Tobacco Use Types Packs/Day Years Used Date Smoking Tobacco: Never Assessed Comments Unknown Sex and Gender Information Value Date Recorded Sex Assigned at Not on file Legal Sex Female 7:50 PM CDT Gender Identity Not on file Sexual Orientation Not on file Plan of Treatment Health Maintenance Due Date Last Done Comments Cervical Cancer Screening Pa p Smear (Age 30 to 64) Every 3 Years 1970 Colorectal Cancer Screening Colonoscopy (10 Years) 1970 Annual Physical 1973 Hepatitis C 1988 DTaP, Tdap and Td Vaccines ( 1 - Tdap) 1989 Hepatitis B Vaccines (1 of 3 - 19+ 3-dose series) 1989 Cervical Cancer Screening Pa p with HPV Testing (Age 30 to 64) Every 5 Years 2000 Cervical Cancer Screening with HPV 2000 Mammogram Screening 2010 Zoster Vaccines (1 of 2) 2020 COVID-19 Vaccine (2023-2 5 season) 2023 Meningococcal B Vaccine Aged Out No l onger eligible based on patient's age to complete this topic Meningococcal Vaccine Aged Out No mike cindy eligible based on patient's age to complete this topic Pneumococcal Vaccine: Pediat rics (0 to 5 Years) and At-Risk Patients (6 to 49 Years) Aged Out No longer eligible b ased on patient's age to complete this topic RSV Immunizations Under 20 Months Aged Out No longer eligible based on patient's age to complete this topic Care Teams Customer Quality Specialist Relationship Specialty Start Date End Date Den Jones MD [address] [place] [address] PCP - General 06/08/10
--- OUTSIDE RECORDS SUMMARY | 2024-06-30 11:14 | XMS_ITS | Referral Summary ---
Author Organization [facility] Address [address] [place] [address] Care Team Providers Care Central Melt Specialist Name Role Phone Christen Enriquez NP Primary Care Provider Encounters Date Type Department Care Team Description 06/03/2024 2:44 AM CDT - 06/03/2024 11:59 PM CDT Hospital Encounter [facility] Emergency, Room R Discharge Disposition: Discharge to home or self care 05/25/2024 8:19 PM CDT - 05/25/2024 11:59 PM CDT Hospital Encounter [facility] Emergency, Room R Discharge Disposition: Discharge to home or self care from Last 3 Months Allergies Active Allergy Reactions Criticality Noted Date [...] for monitoring of blood sugar for diabetes e11. 1 kit 1 3 Active rosuvastatin (CRESTOR) 20 mg tablet Take 1 tablet (20 mg total) by mouth nightly 90 tablet 3 3 Active metoprolol (LOPRESSOR) [...] tablet (25 mg total) by mouth daily . 90 tablet 3 4 Active metFORMIN (GLUCOPHAGE) 1,000 mg tablet Take 1 tablet (1,000 mg total) by mouth 2 (two) times a day with meals E11. 180 tablet 4 4 Active pen needle, diabetic (BD Ultra-Fine Asuncion Pen Needle) 32 gauge x 5/32 needle Inject 1 Device under the skin 4 (four) times a day before meals and nightly Use to deliver insulin 4x/day. E11. 300 each 4 4 Active lancets [facility] Please use insurance compatible lancets to test blood sugar 3x/day. E11. 300 each 4 4 Active insulin aspart niacinamide (FIASP) 100 unit/mL (3 mL) pen for injection Inject 10 Units under the skin 3 (three) times a day before meals E11. 30 mL 3 4 Active blood glucose [...] Overview (06/19/2016): DMII WO C[facility] NT [facility] Assessment & Plan (10/05/2023 10:10 AM CDT): [...] 023 Overview (06/19/2016): HYPERLIPIDEMIA NEC/NOS Hypoxia 09/03/2022 Social History Tobacco Use Types Packs/Day Years [...] often do you attend chur ch or oriental orthodox services? Never 06/25/2022 Do you belong to any clubs o r organizations such as advent groups, unions, fraternal or athletic groups, or [...] place to sleep or slept in a detention (including now)? 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 The CKD-EPI equation should not be used for patients with unstable renal function and has not been validated in children and those over 70. Current interpretive data was last reviewed 2021. Blood 10/29/2023 6:18 AM CDT 10/29/2023 6:21 AM CDT us Letitia Somers MD LAB BLOOD ORDERABLES Fin al Result [facility] Department [place] [address] * Albumin Creatinine Ratio, Urine (10/05/2023 3:01 [...] 3:01 PM CDT 10/05/2023 3:01 PM CDT Yamilex Bush NP LAB URINE ORDERABLES Final Resu lt [facility] [id number] Department [place] [address] * (ABNORMAL) Lipid panel (10/05/2023 3:01 PM [...] LDL, calculated See Comment <=129 mg/dL [facility] Comment: Unable to calculate due to elevated [...] on 2017. Non-HDL Cholesterol 331 mg/dL [facility] Comment: Interpretive Data Ages [...] LAB BLOOD ORDERABLES Final Resu lt [facility] [id number] Department [place] [address] * Diabetic Eye Exam (03/18/2022) Historical Provider MD HEALTH MAINTENANCE Final Result from Last 3 Months or Most Recently Relevant to Health Maintenance [facility] Advance Directives For more information, please contact: [phone] * Full Code (Latest Code Status on File) Date Activated Date Inactivated Comments 06/24/2022 11:07 PM 06/26/2022 7:15 PM * Full Code Date Activated Date Inactivated Comments 05/27/2021 6:53 AM 05/29/2021 7:30 PM Care Teams Central Melt Specialist Relationship Specialty Start Date End Date Christen Enriquez NP [address] [address] PCP - General 05/27/21
--- OUTSIDE RECORDS SUMMARY | 2024-06-30 11:14 | XMS_ITS | Encounter Summary ---
Author Organization [facility] Address [address] [place] [address] Phone Care Team Providers Care Floorleader Name Role Phone Zoe Christen Sanford APRN, DRY MOP MAKER Primary Care Provider Encounter Details Date Type Department Care Team (Late st Contact Info) Description 06/09/2023 Transcribe Orders [facility] Services [address] [place] [address] Destinee Hawkins APRN, DRY MOP MAKER [address] [place] [address] Examination for, laboratory (Primary Dx); Encounter for long-term (current) use of medications Social History Tobacco Use Types Packs/Day Years [...] on file documented as of this encounter Results * (ABNORMAL) CMP (COMPREHENSIVE METABOLIC PANEL) (06/09/2023 3:47 PM CDT) SODIUM 142 136 - 145 mmol/L 06/09/2023 5:19 PM CDT [facility] POTASSIUM 4.7 3.5 - 5.1 mmol/L 06/09/2023 5:19 PM CDT [facility] CHLORIDE 107 98 - 107 mmol/L 06/09/2023 5:19 PM CDT [facility] CO2, VENOUS 26 22 - 30 mmol/L 06/09/2023 5:19 PM CDT [facility] ANION GAP 13.7 <18.0 mmol/L 06/09/2023 5:19 PM CDT [facility] GLUCOSE 162(H) 70 - 99 mg/dL 06/09/2023 5:19 PM CDT [facility] BUN 14 10 - 20 mg/dL 06/09/2023 5:19 PM CDT [facility] CREATININE, BLOOD 0.97 0.60 - 1.00 mg/dL 06/09/2023 5:19 PM CDT [facility] BUN/CREATININE RATIO 14 12 - 20 ratio 06/09/2023 5:19 PM CDT [facility] TOTAL PROTEIN 7.3 6.3 - 8.2 g/dL 06/09/2023 5:19 PM CDT [facility] ALBUMIN 4.0 3.5 - 5.0 g/dL 06/09/2023 5:19 PM CDT [facility] A/G RATIO 1.2 1.0 - 2.2 06/09/2023 5:19 PM CDT [facility] CALCIUM 10.0 8.7 - 10.5 mg/dL 06/09/2023 5:19 PM CDT [facility] T BILI 0.2 0.2 - 1.2 mg/dL 06/09/2023 5:19 PM CDT [facility] SGOT (AST) 23 5 - 34 U/L 06/09/2023 5:19 PM CDT [facility] SGPT (ALT) 17 0 - 55 U/L 06/09/2023 5:19 PM CDT [facility] ALKALINE PHOSPHATASE 72 40 - 150 U/L 06/09/2023 5:19 PM CDT [facility] IS THE PATIENT REQUIRED TO BE FASTING? No 06/09/2023 5:19 PM CDT [facility] GFR, ESTIMATED >60 >=60 06/09/2023 5:19 PM CDT [facility] Comment: Creatinine Clearance is the preferred criteria for selecting drug dose adjustments in renally impaired patients. The GFR is provided as additional pertinent clinical information. GFR is reported in mL/min/1.73 sq m. Calculation based on the Chronic Kidney Disease Epidemiology Collaboration (CKD- EPI) equation refit without adjustment for race. GFR, EST. >60 >=60 024 5:19 PM CDT [facility] GFR, EST. NONAFRICAN 60 >=60 06/09/2023 5:19 PM CDT [facility] Blood Venipuncture / Unknown 06/09/2023 3:47 PM CDT 06/09/2023 5:07 PM CDT [facility] CEMENT TESTER ASSISTANT, DRY MOP MAKER CHEMISTRY ORDERABLES Fin al Result [facility] [address] [place] [address] * (ABNORMAL) VALPROIC ACID (DEPAKENE) (06/09/2023 3:47 PM CDT) VALPROIC ACID TOTAL 15(L) 50 - 100 mcg/mL 06/09/2023 4:32 PM CDT [facility] Blood Venipuncture / Unknown 06/09/2023 3:47 PM CDT 06/09/2023 4:01 PM CDT [facility] CEMENT TESTER ASSISTANT, DRY MOP MAKER CHEMISTRY ORDERABLES Fin al Result [facility] [address] [place] [address] documented in this encounter Visit Diagnoses Diagnosis Examination for, laboratory- Primary Laboratory examination, unspecified Encounter for long-term (current) use of medications Encounter for long-term (current) use of other medications documented in this encounter Additional Health Concerns Infection Onset Date Last Indicated Resolved Time COVID - 19 10/13/2023 10/13/2023 10/13/2023 2:05 AM CDT documented as of this encounter Care Teams Floorleader Relationship Specialty Start Date End Date Christen Enriquez APRN, DRY MOP MAKER [address] [place] [address] PCP - General Advanced Practice Nurse 12/04/19 documented as of this encounter
== END 2024-06-30 10:57 | disposition home or self-care (01) ==
PROVIDERS: Emergency Provider Nurse Practitioner Family; PCP Nurse Practitioner Family
DX: L25.9 Unspecified contact dermatitis, unspecified cause (principal); Z79.899 Other long term (current) drug therapy; Z79.4 Long term (current) use of insulin
CPT/HCPCS: 99213; G0463